=== PATIENT | female | born 1985 | race Caucasian/White ===

== ENCOUNTER 2022-11-20 09:26 | Outpatient (CLI) | payer OTHER, SELFPAY ==
[2022-11-20] VITALS (7 sets, daily range): BP systolic 107–122; BP diastolic 65–76; PULSE 86–100; RESP 16; TEMP 36.1–36.3; O2SAT 98–100; BMI 21.0
[2022-11-20] MEDS: 0.9% NaCl VAD Flush IV ×3 (10:34→14:34)
== END 2022-11-20 09:27 | disposition home or self-care (01) ==
LOC: MEDOUTP 09:29
PROVIDERS: Referring Provider Internal Medicine Hematology & Oncology; Visit Provider Internal Medicine Hematology & Oncology
DX: D61.818 Other pancytopenia (principal); C92.90 Myeloid leukemia, unspecified, not having achieved remission
CPT/HCPCS: 36430; 86850; 86900; 86901; 86920; J7040; P9040; A4216

== ENCOUNTER 2022-11-30 07:55 | Outpatient (CLI) | payer OTHER, SELFPAY ==
[2022-11-30] VITALS (8 sets, daily range): BP systolic 92–113; BP diastolic 61–72; PULSE 84–100; RESP 16; TEMP 35.8–37.1; O2SAT 98–100; BMI 20.5
[2022-11-30] MEDS: 0.9% NaCl VAD Flush IV ×2 (08:23→14:41)
== END 2022-11-30 07:56 | disposition home or self-care (01) ==
LOC: MEDOUTP 07:58
PROVIDERS: Referring Provider Internal Medicine Hematology & Oncology; Visit Provider Internal Medicine Hematology & Oncology
DX: C92.00 Acute myeloblastic leukemia, not having achieved remission (principal)
CPT/HCPCS: 36430; 86850; 86900; 86901; 86920; 86965; J7040; P9035; P9040; A4216

== ENCOUNTER → 2022-12-03 | Outpatient (CLI) | payer OTHER, SELFPAY | END | disposition home or self-care (01) | LOC: LABSPEC 17:23 | PROVIDERS: Visit Provider Internal Medicine Hematology & Oncology | DX: R69 Illness, unspecified (principal) | CPT/HCPCS: 86900; 86901 ==

== ENCOUNTER 2022-12-04 09:32 | Outpatient (CLI) | payer OTHER, SELFPAY ==
[2022-12-04] MEDS: 0.9% NaCl Peripheral Flush Adult/Peds IV ×2 (09:54→12:33)
[2022-12-04] MEDS: Acetaminophen 500 MG Tablet 1000 MG PO (09:56)
[2022-12-04] MEDS: DiphenhydrAMINE 50 MG/ML Syringe IV (09:56)
[2022-12-04 10:01] VITALS: BP 114/66; PULSE 98; RESP 16; TEMP 36.3; O2SAT 98; BMI 20.5
[2022-12-04 10:50] VITALS: BP 106/72; PULSE 108; RESP 14; TEMP 36.4; O2SAT 99
[2022-12-04 11:43] VITALS: BP 110/65; PULSE 80; RESP 16; TEMP 36.4
[2022-12-04 11:58] VITALS: BP 98/60; PULSE 89; RESP 16; TEMP 36.4
== END 2022-12-04 09:33 | disposition home or self-care (01) ==
LOC: MEDOUTP 09:32
PROVIDERS: Referring Provider Internal Medicine Hematology & Oncology; Visit Provider Internal Medicine Hematology & Oncology
DX: C92.00 Acute myeloblastic leukemia, not having achieved remission (principal)
CPT/HCPCS: 36430; 86900; 86901; 86965; J7040; P9035; A4216

== ENCOUNTER 2022-12-05 18:16 | Emergency (ER) | payer OTHER, SELFPAY ==
[2022-12-05 18:18] VITALS: BP 103/64; PULSE 130; RESP 14; TEMP 36.4; O2SAT 98; BMI 20.5
--- NOTE | 2022-12-05 18:45 | EKG12_ITS ---
Test Reason : WEAKNESS Blood Pressure : / mmHG Vent. Rate : 115 BPM Atrial Rate : 115 BPM P-R Int : 114 ms QRS Dur : 074 ms QT Int : 340 ms P-R-T Axes : 072 068 031 degrees QTc Int : 470 ms Sinus tachycardia Otherwise normal ECG Confirmed by MEE GODINEZ, LUX ([id number]), editor school photograph MATILDA BOSE ([id number]) on 12/10/2022 8:11:18 AM Referred By: Confirmed By:RAFAEL CABAN MD
--- NOTE | 2022-12-05 18:46 | EDS_ITS ---
HPI History of Present Illness Chief Complaint: Weakness Informant: patient and spouse/S.O. 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 Last chemotherapy infusion was 8 3. States today after her nap she just woke up just did not feel well felt fatigued. She denies nausea, vomiting or diarrhea. She denies any fever or chills. She denies any dysuria. She denies any shortness of breath. No chest pain or abdominal pain. Denies any diarrhea or melena. States she has had p.o. intake. She has had episodes of tachycardia before. No history of DVT or PE. Prior similar symptoms: Yes Recent Illness/Hospitalization: No PFSH PFSH Medical History AML (acute myeloid leukemia) Home Medications levofloxacin 500 mg tablet 500 mg PO DAILY 12/04/22 [History Last Taken Unknown] ondansetron HCl 8 mg tablet mg PO Q8H PRN nausea and vomiting 12/05/22 [History Last Taken Unknown] Allergy/AdvReac Type Severity Reaction Status Date / Time No Known Allergies Allergy Verified 12/04/22 09:50 Social History Smoking Status: Never smoker ROS ROS ED ROS Narrative Fatigue. Review of Systems ROS Unobtainable: Denies due to encephalopathy Constitutional Constitutional ED: Denies chills or fever(s) Eyes Eyes: Denies blurry vision ENT ENT ED: Denies ear pain Cardiovascular Cardiovascular: Reports racing heartbeat; Denies chest pain or palpitations Respiratory/Chest Respiratory/Chest: Denies cough or dyspnea Gastrointestinal Gastrointestinal: Denies abdominal pain, constipation, diarrhea, melena, nausea or vomiting Genitourinary Genitourinary ED: Denies dysuria or hematuria Musculoskeletal Musculoskeletal: Denies arthralgias Integumentary Denies abscess Neurologic Neurologic: Denies headache(s) Psychiatric Psychiatric: Denies anxiety Endocrine Endocrinology: Denies cold intolerance Allergic/Immunologic Allergic/Immunologic ED: Denies mouth swelling or tongue swelling EXAM Physical Exam Narrative Exam Narrative: Well-appearing 37-year-old female. Vital signs are stable and her tachycardia 130. She does not look septic or toxic. She does not look dehydrated. Initial blood pressure was 103/64. Pulse ox 90% on room air hypoxia. H EENT exam poisonings membranes. Posterior pharynx normal. Neck nontender no JVD. No lymphadenopathy. No meningismus. Lungs clear to auscultation bilaterally. Heart tachycardic rate about 125 no murmur. Abdomen soft nontender. Normal bowel sounds no peritoneal signs. Chest wall nontender. She has a tunneled catheter in her right chest wall Jaramillo catheter. It is nontender. There is no redness or swelling. Moving all 4 extremities. Nontender no edema. Neurologically she is awake and alert. Back nontender. Const Vital Signs: 12/05/22 18:18 12/05/22 18:36 12/05/22 19:13 Temperature 97.6 F L Temperature Source Temporal Pulse Rate 130 H 113 H Respiratory Rate 14 20 H Respiratory Effort Normal Non-Labored Respiratory Pattern Normal Blood Pressure 103/64 103/70 Blood Pressure Mean 77 81 Pulse Ox 98 99 Oxygen Delivery Method Room Air Room Air 12/05/22 20:45 Temperature Temperature Source Pulse Rate 106 H Respiratory Rate 18 Respiratory Effort Respiratory Pattern Blood Pressure 120/79 Blood Pressure Mean 92 Pulse Ox 98 Oxygen Delivery Method Room Air Positive well nourished and well developed; Negative for obese, cachectic or contractures General Appearance ED: well developed and NAD; Negative for cachectic, contractures, cyanotic, diaphoretic or pallor Nutritional Appearance: Negative for cachectic or obese HEENT Reports moist mucous membranes; Denies dry mucous membranes Negative for trauma or tenderness Mouth ED: No dry mucous membranes Mouth: No dry mucous membranes Eyes PERRL and EOMs intact bilaterally General Eye ED: Negative for pale conjunctiva or scleral icterus Neck no lymphadenopathy, supple and no JVD General: Negative for tenderness Lymph Lymphatic: Negative for other Chest Wall inspection of chest normal and palpation of chest normal Chest: Negative for other Resp normal respiratory effort and clear to auscultation bilaterally Effort and Inspection: Negative for retractions Auscultation: Negative for rales, rhonchi or wheezes Cardio regular rhythm, S1 normal heart sound, S2 normal heart sound and no murmurs; Negative for regular rate Rate: tachycardic Rhythm: Negative for abnormal rhythm GI normal to inspection, nondistended, normoactive bowel sounds, non-tender, non- distended and no masses Inspection: Negative for abdominal distention Auscultation: normoactive bowel sounds Palpation: soft; Negative for tender or guarding Back/Spine no CVA tenderness General Back: Negative for CVA tenderness Cervical Spine: Negative for cervical spine tenderness Thoracic Spine / Upper Back: Negative for thoracic spinal tenderness Lumbar Spine / Lower Back: Negative for lumbar spinal tenderness Extremity normal to inspection General Extremety ED: Negative for edema or tenderness General Extremity: Negative for edema Neuro oriented x3, CN's II-XII intact bilaterally and no sensory deficits noted Sensorium / Orientation: alert; Negative for orientation impaired, lethargic or stuporous Motor Exam: strength 5/5 throughout Psych mental status grossly normal Appearance: Negative for other Attitude: No agitated Mood & Affect: Negative for depressed, anxious or tearful Skin no rashes or lesions noted, no wounds and skin turgor normal General Skin Exam: elasticity normal; Negative for jaundice or pallor Lesions: No lesion noted Rashes: No rashes noted Trauma: Negative for abrasion Wounds: Negative for wounds noted MDM MDM MDM Narrative Medical decision making narrative: 37-year-old female with tachycardia and just feeling fatigued. Currently being treated for AML. She does not look infected. She has no cough, fever, abdominal pain or dysuria. Screening labs to be obtained. She will be treated with a liter normal saline. She may be dehydrated. Repeat exam patient doing well at 9:20 PM. Clinically she feels better after the IV fluids. Her vital signs are stable. Her heart rate is down to around 100. She and her feel current with her being discharged home. I did speak to her oncologist Dr. Gilles Caba knows this patient very well. Her labs are actually the same or better today than they have been. She gets frequent transfusions. Both he and I and the patient and are comfortable with her being discharged home. They are going to see him in the office again t omorrow to have further evaluation and testing. History & Record Review Discussion w/independent historian: Patient and Family Additional record(s) reviewed:: Prior inpatient record, Prior outpatient record, Prior ED visit and Prior labs Lab Data Attestation: I reviewed the patient's lab results. Lab results narrative: CBC shows a white count of 0.3. H&H is 7.3 and 21.5. Platelet count 21,000. Electrolytes show gap of 6. Normal BUN and creatinine of 18 and 0.6. Glucose 105. Labs: Laboratory Results - last 24 hr 12/05/22 19:00 WBC 0.3 L* RBC 2.46 L Hgb 7.3 L Hct 21.5 L MCV 87.4 MCH 29.7 MCHC 34.0 RDW Std Deviation 41.6 RDW Coeff of Susan 13.2 Plt Count 21 L* MPV 8.1 Immature Gran % (Auto) 0.000 Neut % (Auto) 25.9 L Lymph % (Auto) 70.4 H [place] % (Auto) 3.7 Eos % (Auto) 0.0 Baso % (Auto) 0.0 Absolute Neuts (auto) 0.1 L Absolute Lymphs (auto) 0.19 L Nucleated RBC % 0 Differential Comment SCANNED Diff Path Review May foll Sodium 137 Potassium 3.6 Chloride 105 Carbon Dioxide 26.0 Anion Gap 6 BUN 18 Creatinine 0.67 Estim Creat Clear Calc 93.25 Est GFR (MDRD) Af Amer 125 Est GFR (MDRD) Non-Af 104 BUN/Creatinine Ratio 26.9 H Glucose 105 Calcium 9.2 Rhythm Strip Rhythm Strip: Sinus Tach Rate: 115 Ectopy: None EKG Initial EKG: Attestation: I personally reviewed and interpreted this EKG as follows: Interpretation: Sinus Rhythm and Sinus Tachycardia Comments: Sinus tachycardia rate of 115 no acute signs of [place] or ischemia. No S1Q3T3. Discharge Plan Triage Chief Complaint: Weakness ED Provider: Darian Valenzuela Dx/Rx/DC Orders Clinical Impression: Acute dehydration, Family history of AML (acute myeloid leukemia), Acquired pancytopenia, Chemotherapy induced neutropenia Instructions: Dehydration Prescriptions: No Action levofloxacin 500 mg tablet 500 mg PO DAILY ondansetron HCl 8 mg tablet PO Q8H PRN (Reason: nausea and vomiting) Patient Comments: TAKE ONE TABLET BY MOUTH EVERY 8 HOURS NEEDED FOR NAUSEA AND VOMITING Primary Care Provider: Mook Ga Referrals: Gilles Caba DO [Med Staff - Active Staff] - 1 Day Care Physician,No Primary [Non-Staff] - Activity Restrictions/Additional Instructions: Plenty fluids and rest. Follow-up with your oncologist in his office tomorrow Dr. Gilles Caba. He and I discussed your care and labs tonight. Disposition Disposition: Home, Self Care
[2022-12-05] MEDS: 0.9% Normal Saline 1,000 ML 1000 ML IV (19:01)
[2022-12-05 19:08] LABS: Absolute Lymphocyte Count 0.19 X10^3/uL (0.83-4.51); Absolute Neutrophil Count 0.1 X10^3/uL (2.0-7.7); Hematocrit 21.5 % (37-47); Hemoglobin 7.3 g/dL (12.0-15.0); Lymphocyte # 0.19 X10^3/ul (0.83-4.51); Lymphocyte % 70.4 % (19-41); Mean Corpuscular Hgb 29.7 pg (27.0-32.0); Mean Corpuscular Volume 87.4 fL (81-99); Mean Platelet Vol. 8.1 fl (6.2-12.0); Monocyte# 0.01 X10^3/uL; Monocyte% 3.7 % (0-10); NRBC Flagged by Analyzer 0 % (0-5); Neutrophil # 0.07 X10^3/uL (2.7-7.7); Neutrophil % 25.9 % (47-70); POSITIVE COUNT YES; POSITIVE DIFFERENTIAL YES; POSITIVE MORPHOLOGY YES; RBC Distribution Width CV 13.2 % (11.6-14.6); RBC Distribution Width SD 41.6 fl (35.1-43.9); Red Blood Count 2.46 M/mm3 (4.2-5.4)
[2022-12-05 19:13] VITALS: BP 103/70; PULSE 113; RESP 20; O2SAT 99
[2022-12-05 19:20] LABS: Anion Gap 6 (5-15); BUN 18 mg/dL (7-18); BUN/Creat Ratio 26.9 RATIO (10-20); Calcium,Total 9.2 mg/dL (8.5-10.1); Chloride 105 mmol/L (98-107); Creatinine, Serum 0.67 mg/dL (0.55-1.02); EST Glomerular Filtration Rate 104 mL/min (>60); Est Glom Filt Rate - Afr Amer 125 mL/min (>60); Estimated Creatinine Clearance 93.25 ml/min; Glucose 105 mg/dL (74-106); Potassium 3.6 mmol/L (3.5-5.1); Sodium Level 137 mmol/L (136-145)
[2022-12-05 19:52] LABS: Differential Comment SCANNED; Differential Indicated SCAN CRITERIA MET; Platelet Count 21 K/mm3 (150-450); White Blood Count 0.3 K/mm3 (4.4-11.0)
[2022-12-05 20:45] VITALS: BP 120/79; PULSE 106; RESP 18; O2SAT 98
[2022-12-05 21:26] VITALS: BP 106/73; PULSE 100; RESP 17; O2SAT 95
[2022-12-06 12:54] LABS: Pathologist Review Reviewed
== END 2022-12-05 21:40 | disposition home or self-care (01) ==
PROVIDERS: Emergency Provider Emergency Medicine; PCP Family Medicine; Visit Provider Emergency Medicine
DX: E86.0 Dehydration (principal); C92.00 Acute myeloblastic leukemia, not having achieved remission; D61.818 Other pancytopenia; D70.1 Agranulocytosis secondary to cancer chemotherapy
CPT/HCPCS: 80048; 85025; 93005; 96360; 96361; 99282; J7030; A4216

== ENCOUNTER 2022-12-07 07:59 | Outpatient (CLI) | payer OTHER, SELFPAY ==
[2022-12-07] VITALS (8 sets, daily range): BP systolic 104–116; BP diastolic 61–72; PULSE 89–97; RESP 16; TEMP 36.2–36.7; O2SAT 100; BMI 20.5
[2022-12-07] MEDS: 0.9% NaCl VAD Flush IV ×2 (08:15→12:29)
== END 2022-12-07 08:00 | disposition home or self-care (01) ==
LOC: MEDOUTP 07:59
PROVIDERS: PCP Family Medicine; Referring Provider Internal Medicine Hematology & Oncology; Visit Provider Internal Medicine Hematology & Oncology
DX: C92.01 Acute myeloblastic leukemia, in remission (principal); D61.818 Other pancytopenia
CPT/HCPCS: 96374; 96375; 36430; 86850; 86900; 86901; 86920; 86922; J7040; P9016; A4216

== ENCOUNTER 2022-12-11 08:04 | Outpatient (CLI) | payer OTHER, SELFPAY ==
[2022-12-11 10:40] VITALS: BP 113/71; PULSE 118; RESP 16; TEMP 36.4; O2SAT 100; BMI 20.5
[2022-12-11] MEDS: DiphenhydrAMINE 50 MG/ML Syringe IV (10:52)
[2022-12-11] MEDS: 0.9% NaCl Peripheral Flush Adult/Peds IV ×2 (10:52→12:47)
[2022-12-11] MEDS: Acetaminophen 500 MG Tablet 1000 MG PO (10:52)
[2022-12-11] MEDS: Hydrocortisone Sod Succinate 100 MG/2 ML Vial IV (10:52)
[2022-12-11 11:32] VITALS: BP 93/60; PULSE 95; RESP 16; TEMP 37.1; O2SAT 100
[2022-12-11 11:48] VITALS: BP 98/62; PULSE 88; RESP 16; TEMP 36.8
[2022-12-11 12:23] VITALS: BP 104/67; PULSE 97; RESP 16; TEMP 36.3
[2022-12-11 12:37] VITALS: BP 99/62; PULSE 91; RESP 16; TEMP 36.6; O2SAT 100
[2022-12-11 12:58] LABS: Absolute Lymphocyte Count 0.11 X10^3/uL (0.83-4.51); Hematocrit 21.7 % (37-47); Hemoglobin 7.5 g/dL (12.0-15.0); Lymphocyte # 0.11 X10^3/ul (0.83-4.51); Lymphocyte % 84.6 % (19-41); Mean Corp Hgb Conc 34.6 g/dL (32-36); Mean Corpuscular Hgb 29.8 pg (27.0-32.0); Mean Corpuscular Volume 86.1 fL (81-99); Mean Platelet Vol. 9.5 fl (6.2-12.0); NRBC Flagged by Analyzer 0 % (0-5); Neutrophil # 0.02 X10^3/uL (2.7-7.7); Neutrophil % 15.4 % (47-70); POSITIVE COUNT YES; POSITIVE DIFFERENTIAL YES; POSITIVE MORPHOLOGY YES; RBC Distribution Width CV 12.4 % (11.6-14.6); Red Blood Count 2.52 M/mm3 (4.2-5.4)
[2022-12-11 13:14] LABS: Differential Indicated SCAN CRITERIA MET; Platelet Count 30 K/mm3 (150-450); White Blood Count 0.1 K/mm3 (4.4-11.0)
[2022-12-11 13:33] LABS: Platelet Estimate MKD DEC (ADEQ)
[2022-12-12 12:31] LABS: Pathologist Review Reviewed
== END 2022-12-11 08:05 | disposition home or self-care (01) ==
LOC: MEDOUTP 08:04
PROVIDERS: PCP Family Medicine; Visit Provider Internal Medicine Hematology & Oncology
DX: C92.00 Acute myeloblastic leukemia, not having achieved remission (principal)
CPT/HCPCS: 36430; 36592; 85025; 86900; 86901; 86965; J7040; P9035; A4216

== ENCOUNTER 2022-12-14 08:29 | Outpatient (CLI) | payer OTHER, SELFPAY ==
[2022-12-14 08:41] VITALS: BP 105/67; PULSE 114; RESP 16; TEMP 36.4; O2SAT 97; BMI 20.5
[2022-12-14] MEDS: 0.9% NaCl VAD Flush IV ×3 (08:47→13:31)
[2022-12-14] MEDS: DiphenhydrAMINE 50 MG/ML Syringe IV (08:52)
[2022-12-14] MEDS: Acetaminophen 500 MG Tablet 1000 MG PO (08:52)
[2022-12-14] MEDS: Hydrocortisone Sod Succinate 100 MG/2 ML Vial IV (08:54)
[2022-12-14 10:01] VITALS: BP 92/54; PULSE 100; RESP 16; TEMP 36.2; O2SAT 100
[2022-12-14 10:15] VITALS: BP 89/53; PULSE 92; RESP 16; TEMP 36.4; O2SAT 98
[2022-12-14 11:07] VITALS: BP 95/53; PULSE 81; RESP 16; TEMP 35.9; O2SAT 100
[2022-12-14 12:10] VITALS: BP 110/69; PULSE 85; RESP 16; TEMP 35.6; O2SAT 100
[2022-12-14 12:30] VITALS: BP 102/62; PULSE 97; RESP 16; TEMP 36.2
[2022-12-14 13:47] LABS: Absolute Lymphocyte Count 0.08 X10^3/uL (0.83-4.51); Hematocrit 22.6 % (37-47); Hemoglobin 7.6 g/dL (12.0-15.0); Lymphocyte # 0.08 X10^3/ul (0.83-4.51); Lymphocyte % 88.9 % (19-41); Mean Corp Hgb Conc 33.6 g/dL (32-36); Mean Corpuscular Hgb 29.2 pg (27.0-32.0); Mean Corpuscular Volume 86.9 fL (81-99); Mean Platelet Vol. 10.1 fl (6.2-12.0); NRBC Flagged by Analyzer 0 % (0-5); Neutrophil # 0.01 X10^3/uL (2.7-7.7); Neutrophil % 11.1 % (47-70); POSITIVE COUNT YES; POSITIVE DIFFERENTIAL YES; POSITIVE MORPHOLOGY YES; Platelet Count 12 K/mm3 (150-450); RBC Distribution Width CV 12.4 % (11.6-14.6); RBC Distribution Width SD 39.7 fl (35.1-43.9)
[2022-12-14 13:58] LABS: Differential Indicated SCAN CRITERIA MET; White Blood Count 0.1 K/mm3 (4.4-11.0)
[2022-12-14 14:21] LABS: Differential Comment SCANNED; Platelet Estimate MKD DEC (ADEQ)
[2022-12-17 13:16] LABS: Pathologist Review Reviewed
== END 2022-12-14 08:30 | disposition home or self-care (01) ==
LOC: MEDOUTP 08:29
PROVIDERS: PCP Family Medicine; Referring Provider Internal Medicine Hematology & Oncology; Visit Provider Internal Medicine Hematology & Oncology
DX: C92.00 Acute myeloblastic leukemia, not having achieved remission (principal); D61.818 Other pancytopenia
CPT/HCPCS: 96374; 96375; 36430; 36592; 85025; 86644; 86850; 86900; 86901; 86920; 86922; 86965; J7040; P9035; P9040; A4216

== ENCOUNTER 2022-12-18 08:53 | Outpatient (CLI) | payer OTHER, SELFPAY ==
[2022-12-18] VITALS (8 sets, daily range): BP systolic 98–110; BP diastolic 62–72; PULSE 88–123; RESP 16; TEMP 36–37.4; O2SAT 99–100
[2022-12-18] MEDS: 0.9% NaCl VAD Flush IV ×2 (09:01→14:51)
[2022-12-18] MEDS: Acetaminophen 500 MG Tablet 1000 MG PO (11:08)
[2022-12-18] MEDS: Hydrocortisone Sod Succinate 100 MG/2 ML Vial IV (11:19)
[2022-12-18] MEDS: DiphenhydrAMINE 50 MG/ML Syringe IV (11:24)
[2022-12-18 15:03] LABS: Hemoglobin 7.6 g/dL (12.0-15.0); Mean Corp Hgb Conc 34.5 g/dL (32-36); Mean Corpuscular Hgb 28.9 pg (27.0-32.0); Mean Corpuscular Volume 83.7 fL (81-99); Mean Platelet Vol. 10.4 fl (6.2-12.0); POSITIVE COUNT YES; POSITIVE DIFFERENTIAL YES; POSITIVE MORPHOLOGY YES; RBC Distribution Width CV 12.3 % (11.6-14.6); RBC Distribution Width SD 37.5 fl (35.1-43.9); Red Blood Count 2.63 M/mm3 (4.2-5.4)
[2022-12-18 15:19] LABS: Platelet Count 15 K/mm3 (150-450); Scan Indicated on CBC? Y/N YES- FLAGS NOTED; White Blood Count 0.1 K/mm3 (4.4-11.0)
[2022-12-20 08:53] LABS: Pathologist Review Reviewed
== END 2022-12-18 08:54 | disposition home or self-care (01) ==
LOC: MEDOUTP 08:53
PROVIDERS: PCP Family Medicine; Referring Provider Internal Medicine Hematology & Oncology; Visit Provider Internal Medicine Hematology & Oncology
DX: C92.00 Acute myeloblastic leukemia, not having achieved remission (principal)
CPT/HCPCS: 96374; 96375; 36430; 36592; 85027; 86850; 86900; 86901; 86920; 86922; 86965; J7040; P9035; P9040; A4216

== ENCOUNTER 2022-12-21 10:10 | Outpatient (CLI) | payer OTHER, SELFPAY ==
[2022-12-21] MEDS: 0.9% NaCl VAD Flush IV ×2 (11:00→14:47)
[2022-12-21] MEDS: Acetaminophen 500 MG Tablet 1000 MG PO (11:04)
[2022-12-21] MEDS: DiphenhydrAMINE 50 MG/ML Syringe IV (11:05)
[2022-12-21] MEDS: Hydrocortisone Sod Succinate 100 MG/2 ML Vial IV (11:10)
[2022-12-21 11:13] VITALS: BP 115/77; PULSE 107; RESP 16; TEMP 36.7; O2SAT 100; BMI 20.3
[2022-12-21 12:13] VITALS: BP 101/58; PULSE 92; RESP 16; TEMP 36.7
[2022-12-21 12:36] VITALS: BP 108/65; PULSE 78; RESP 16; TEMP 36.2
[2022-12-21 12:54] VITALS: BP 105/54; PULSE 92; RESP 16; TEMP 35.8; O2SAT 100
[2022-12-21 13:09] VITALS: BP 112/66; PULSE 95; RESP 16; TEMP 36.3
== END 2022-12-21 10:11 | disposition home or self-care (01) ==
PROVIDERS: PCP Family Medicine; Visit Provider Internal Medicine Hematology & Oncology
DX: D61.818 Other pancytopenia (principal); C92.90 Myeloid leukemia, unspecified, not having achieved remission
CPT/HCPCS: 96374; 96375; 36430; 36592; 86900; 86901; 86965; J7040; P9035; A4216

== ENCOUNTER 2022-12-25 08:01 | Outpatient (CLI) | payer OTHER, SELFPAY ==
[2022-12-25] VITALS (9 sets, daily range): BP systolic 98–124; BP diastolic 62–76; PULSE 80–123; RESP 16; TEMP 36.5–37.2; O2SAT 96–100
[2022-12-25] MEDS: 0.9% NaCl VAD Flush IV ×2 (08:14→09:49)
[2022-12-25] MEDS: Acetaminophen 500 MG Tablet 1000 MG PO (14:23)
[2022-12-25] MEDS: DiphenhydrAMINE 50 MG/ML Syringe IV (14:24)
[2022-12-25] MEDS: Hydrocortisone Sod Succinate 100 MG/2 ML Vial IV (14:28)
== END 2022-12-25 08:02 | disposition home or self-care (01) ==
LOC: MEDOUTP 08:01
PROVIDERS: PCP Family Medicine; Referring Provider Internal Medicine Hematology & Oncology; Visit Provider Internal Medicine Hematology & Oncology
DX: C92.00 Acute myeloblastic leukemia, not having achieved remission (principal)
CPT/HCPCS: 96374; 96375; 36430; 86850; 86900; 86901; 86920; 86921; 86922; 86965; J7040; P9035; P9040; A4216

== ENCOUNTER 2022-12-28 08:02 | Outpatient (CLI) | payer OTHER, SELFPAY ==
[2022-12-28 08:16] VITALS: BP 121/74; PULSE 100; RESP 16; TEMP 36.7; O2SAT 99
[2022-12-28] MEDS: 0.9% NaCl VAD Flush IV ×2 (08:18→13:11)
[2022-12-28 08:48] VITALS: BP 110/76; PULSE 98; RESP 16; TEMP 36.8
[2022-12-28 09:48] VITALS: BP 107/70; PULSE 91; RESP 16; TEMP 36.8; O2SAT 99
[2022-12-28 10:34] VITALS: BP 106/71; PULSE 87; RESP 16; TEMP 36.6; O2SAT 99
[2022-12-28] MEDS: Acetaminophen 500 MG Tablet 1000 MG PO (10:43)
[2022-12-28] MEDS: DiphenhydrAMINE 50 MG/ML Syringe IV (10:44)
[2022-12-28] MEDS: Hydrocortisone Sod Succinate 100 MG/2 ML Vial IV (10:52)
[2022-12-28 11:28] VITALS: BP 122/80; PULSE 78; RESP 16; TEMP 36.6
[2022-12-28 11:53] VITALS: BP 133/89; PULSE 82; RESP 16; TEMP 36.5; O2SAT 100
[2022-12-28 13:31] LABS: Hematocrit 28.1 % (37-47); Hemoglobin 9.5 g/dL (12.0-15.0); Mean Corp Hgb Conc 33.8 g/dL (32-36); Mean Corpuscular Hgb 28.8 pg (27.0-32.0); Mean Corpuscular Volume 85.2 fL (81-99); Mean Platelet Vol. 10.4 fl (6.2-12.0); POSITIVE COUNT YES; POSITIVE DIFFERENTIAL YES; POSITIVE MORPHOLOGY YES; Platelet Count 36 K/mm3 (150-450); RBC Distribution Width CV 12.9 % (11.6-14.6); RBC Distribution Width SD 39.8 fl (35.1-43.9); White Blood Count 0.2 K/mm3 (4.4-11.0)
[2022-12-28 13:33] LABS: Scan Indicated on CBC? Y/N YES- FLAGS NOTED
[2023-01-02 12:51] LABS: Pathologist Review Reviewed
== END 2022-12-28 08:03 | disposition home or self-care (01) ==
LOC: MEDOUTP 08:03
PROVIDERS: PCP Family Medicine; Referring Provider Internal Medicine Hematology & Oncology; Visit Provider Internal Medicine Hematology & Oncology
DX: C92.00 Acute myeloblastic leukemia, not having achieved remission (principal)
CPT/HCPCS: 36430; 36592; 85027; 86850; 86900; 86901; 86920; 86922; 86965; J7040; P9035; P9040; A4216

== ENCOUNTER 2023-01-04 08:54 | Outpatient (CLI) | payer OTHER, SELFPAY ==
[2023-01-04 09:10] VITALS: BP 98/68; PULSE 109; RESP 16; TEMP 36.5; O2SAT 100; BMI 19.3
[2023-01-04] MEDS: 0.9% Normal Saline (500mL Bag) 500 ML 15 ML IV (09:20)
[2023-01-04] MEDS: DiphenhydrAMINE 50 MG/ML Syringe IV (09:21)
[2023-01-04] MEDS: Acetaminophen 500 MG Tablet 1000 MG PO (09:21)
[2023-01-04] MEDS: 0.9% NaCl VAD Flush IV ×2 (09:21→10:37)
[2023-01-04] MEDS: Hydrocortisone Sod Succinate 100 MG/2 ML Vial IV (09:24)
[2023-01-04 10:20] VITALS: BP 112/83; PULSE 112; RESP 16; TEMP 37.4; O2SAT 100
[2023-01-04 10:37] VITALS: BP 96/61; PULSE 77; RESP 16; TEMP 36.4; O2SAT 100
== END 2023-01-04 08:55 | disposition home or self-care (01) ==
LOC: MEDOUTP 08:54
PROVIDERS: PCP Family Medicine; Referring Provider Internal Medicine Hematology & Oncology; Visit Provider Internal Medicine Hematology & Oncology
DX: C92.00 Acute myeloblastic leukemia, not having achieved remission (principal)
CPT/HCPCS: 96374; 96375; 36430; 86900; 86901; 86965; J7040; P9035; A4216

== ENCOUNTER 2023-01-11 09:53 | Outpatient (CLI) | payer OTHER, SELFPAY ==
[2023-01-11 10:34] VITALS: BP 122/84; PULSE 100; RESP 16; TEMP 36.2; O2SAT 100; BMI 19.3
[2023-01-11] MEDS: 0.9% NaCl VAD Flush IV ×2 (10:41→12:01)
[2023-01-11] MEDS: 0.9% Normal Saline (500mL Bag) 500 ML 15 ML IV (10:41)
[2023-01-11] MEDS: Acetaminophen 500 MG Tablet 1000 MG PO (10:42)
[2023-01-11] MEDS: DiphenhydrAMINE 50 MG/ML Syringe IV (10:42)
[2023-01-11] MEDS: Hydrocortisone Sod Succinate 100 MG/2 ML Vial IV (10:49)
[2023-01-11 11:42] VITALS: BP 107/68; PULSE 95; RESP 16; TEMP 36.8; O2SAT 100
[2023-01-11 12:00] VITALS: BP 107/73; PULSE 95; RESP 16; TEMP 36.6; O2SAT 100
== END 2023-01-11 09:54 | disposition home or self-care (01) ==
LOC: MEDOUTP 09:54
PROVIDERS: PCP Family Medicine; Referring Provider Internal Medicine Hematology & Oncology; Visit Provider Internal Medicine Hematology & Oncology
DX: C92.00 Acute myeloblastic leukemia, not having achieved remission (principal)
CPT/HCPCS: 96374; 96375; 36430; 86900; 86901; 86965; J7040; P9035; A4216

== ENCOUNTER 2023-01-15 08:59 | Outpatient (CLI) | payer OTHER, SELFPAY ==
[2023-01-15 09:11] VITALS: BP 116/77; PULSE 95; RESP 16; TEMP 36.3; O2SAT 100; BMI 19.3
[2023-01-15] MEDS: 0.9% NaCl VAD Flush IV ×2 (09:15→12:43)
[2023-01-15] MEDS: 0.9% Normal Saline (500mL Bag) 500 ML 15 ML IV (09:15)
[2023-01-15 09:43] VITALS: BP 107/72; PULSE 104; RESP 16; TEMP 36.4; O2SAT 100
[2023-01-15 10:42] VITALS: BP 106/66; PULSE 86; RESP 16; TEMP 36.6; O2SAT 99
[2023-01-15 11:13] VITALS: BP 114/68; PULSE 91; RESP 16; TEMP 36.4; O2SAT 99
[2023-01-15] MEDS: Acetaminophen 500 MG Tablet 1000 MG PO (11:15)
[2023-01-15] MEDS: DiphenhydrAMINE 50 MG/ML Syringe IV (11:16)
[2023-01-15] MEDS: Hydrocortisone Sod Succinate 100 MG/2 ML Vial IV (11:21)
[2023-01-15 12:15] VITALS: BP 117/68; PULSE 101; RESP 16; TEMP 36.9; O2SAT 100
== END 2023-01-15 09:00 | disposition home or self-care (01) ==
LOC: MEDOUTP 08:59
PROVIDERS: PCP Family Medicine; Referring Provider Internal Medicine Hematology & Oncology; Visit Provider Internal Medicine Hematology & Oncology
DX: C92.90 Myeloid leukemia, unspecified, not having achieved remission (principal)
CPT/HCPCS: 96374; 96375; 36430; 86850; 86900; 86901; 86920; 86921; 86922; 86965; J7040; P9035; P9040; A4216

== ENCOUNTER 2023-02-19 08:36 | Outpatient (CLI) | payer OTHER, SELFPAY ==
[2023-02-19] MEDS: 0.9% NaCl VAD Flush IV ×2 (08:52→13:22)
[2023-02-19] MEDS: 0.9% Normal Saline (500mL Bag) 500 ML 15 ML IV (08:52)
[2023-02-19 08:58] VITALS: BP 115/78; PULSE 104; RESP 16; TEMP 36.3; O2SAT 100; BMI 19.5
[2023-02-19 09:22] VITALS: BP 111/71; PULSE 95; RESP 16; TEMP 36.4; O2SAT 100
[2023-02-19 10:21] VITALS: BP 114/77; PULSE 94; RESP 16; TEMP 36.6; O2SAT 100
[2023-02-19 11:35] VITALS: BP 120/78; PULSE 87; RESP 16; TEMP 36.6; O2SAT 100
[2023-02-19 12:35] VITALS: BP 127/80; PULSE 94; RESP 16; TEMP 36.6; O2SAT 100
[2023-02-19 13:09] VITALS: BP 121/77; PULSE 95; RESP 16; TEMP 36.7; O2SAT 100
== END 2023-02-19 08:37 | disposition home or self-care (01) ==
LOC: MEDOUTP 08:36
PROVIDERS: PCP Family Medicine; Referring Provider Internal Medicine Hematology & Oncology; Visit Provider Internal Medicine Hematology & Oncology
DX: C92.90 Myeloid leukemia, unspecified, not having achieved remission (principal)
CPT/HCPCS: 96374; 96375; 36430; 86850; 86900; 86901; 86920; 86922; J7040; P9016; A4216

== ENCOUNTER 2023-02-26 09:57 | Outpatient (CLI) | payer OTHER, SELFPAY ==
[2023-02-26 10:14] VITALS: BP 106/73; PULSE 89; RESP 16; TEMP 36.4; O2SAT 100; BMI 19.5
[2023-02-26] MEDS: 0.9% Normal Saline (500mL Bag) 500 ML 15 ML IV (10:16)
[2023-02-26] MEDS: 0.9% NaCl VAD Flush IV ×2 (10:16→11:22)
[2023-02-26] MEDS: Hydrocortisone Sod Succinate 100 MG/2 ML Vial IV (10:20)
[2023-02-26] MEDS: DiphenhydrAMINE 50 MG/ML Syringe IV (10:20)
[2023-02-26] MEDS: Acetaminophen 500 MG Tablet 1000 MG PO (10:20)
[2023-02-26 11:01] VITALS: BP 102/60; PULSE 82; RESP 16; TEMP 36.8
[2023-02-26 11:19] VITALS: BP 98/61; PULSE 85; RESP 16; TEMP 36.6; O2SAT 100
== END 2023-02-26 09:58 | disposition home or self-care (01) ==
LOC: MEDOUTP 09:57
PROVIDERS: PCP Family Medicine; Referring Provider Internal Medicine Hematology & Oncology; Visit Provider Internal Medicine Hematology & Oncology
DX: C92.90 Myeloid leukemia, unspecified, not having achieved remission (principal)
CPT/HCPCS: 96374; 96375; 36430; 86900; 86901; 86965; J7040; P9035; A4216

== ENCOUNTER 2023-03-01 09:36 | Outpatient (CLI) | payer OTHER, SELFPAY ==
[2023-03-01 09:48] VITALS: BP 104/70; PULSE 90; RESP 16; TEMP 36.1; O2SAT 100; BMI 19.5
[2023-03-01] MEDS: Acetaminophen 500 MG Tablet 1000 MG PO (10:01)
[2023-03-01] MEDS: 0.9% NaCl VAD Flush IV (10:02)
[2023-03-01] MEDS: Hydrocortisone Sod Succinate 100 MG/2 ML Vial IV (10:02)
[2023-03-01] MEDS: 0.9% Normal Saline (500mL Bag) 500 ML 15 ML IV (10:03)
[2023-03-01] MEDS: DiphenhydrAMINE 50 MG/ML Syringe IV (10:09)
[2023-03-01 11:10] VITALS: BP 103/66; PULSE 98; RESP 16; TEMP 36.4; O2SAT 100
[2023-03-01 11:25] VITALS: BP 100/56; PULSE 92; RESP 16; TEMP 36.3; O2SAT 100
== END 2023-03-01 09:37 | disposition home or self-care (01) ==
LOC: MEDOUTP 09:36
PROVIDERS: PCP Family Medicine; Referring Provider Internal Medicine Hematology & Oncology; Visit Provider Internal Medicine Hematology & Oncology
DX: C92.00 Acute myeloblastic leukemia, not having achieved remission (principal)
CPT/HCPCS: 96374; 96375; 36430; 86900; 86901; 86965; J7040; P9035; A4216

== ENCOUNTER 2023-03-05 08:32 | Outpatient (CLI) | payer OTHER, SELFPAY ==
[2023-03-05 08:56] VITALS: BP 106/68; PULSE 111; RESP 16; TEMP 36; O2SAT 100; BMI 19.5
[2023-03-05 09:21] VITALS: BP 106/73; PULSE 104; RESP 16; TEMP 35.9; O2SAT 100
[2023-03-05 10:17] VITALS: BP 104/67; PULSE 97; RESP 16; TEMP 36.2
[2023-03-05 11:05] VITALS: BP 108/76; PULSE 100; RESP 16; TEMP 36.5; O2SAT 100
[2023-03-05] MEDS: Acetaminophen 500 MG Tablet 1000 MG PO (11:09)
[2023-03-05] MEDS: Hydrocortisone Sod Succinate 100 MG/2 ML Vial IV (11:10)
[2023-03-05] MEDS: DiphenhydrAMINE 50 MG/ML Syringe IV (11:11)
[2023-03-05 11:48] VITALS: BP 109/68; PULSE 106; RESP 16; TEMP 36.2; O2SAT 100
[2023-03-05 12:06] VITALS: BP 104/68; PULSE 108; RESP 16; TEMP 36.3; O2SAT 100
[2023-03-05] MEDS: 0.9% NaCl VAD Flush IV ×2 (12:09→12:11)
== END 2023-03-05 08:33 | disposition home or self-care (01) ==
LOC: MEDOUTP 08:32
PROVIDERS: PCP Family Medicine; Referring Provider Internal Medicine Hematology & Oncology; Visit Provider Internal Medicine Hematology & Oncology
DX: C92.00 Acute myeloblastic leukemia, not having achieved remission (principal)
CPT/HCPCS: 96374; 96375; 36430; 86850; 86900; 86901; 86920; 86922; 86965; J7040; P9016; P9035; A4216

== ENCOUNTER 2023-03-08 07:58 | Outpatient (CLI) | payer OTHER, SELFPAY ==
[2023-03-08 08:05] VITALS: BP 120/71; PULSE 110; RESP 16; TEMP 36.6; O2SAT 100
[2023-03-08] MEDS: 0.9% NaCl VAD Flush IV ×2 (08:08→11:35)
[2023-03-08] MEDS: 0.9% Normal Saline (500mL Bag) 500 ML 15 ML IV (08:08)
[2023-03-08 08:52] VITALS: BP 112/72; PULSE 115; RESP 16; TEMP 36.6; O2SAT 100
[2023-03-08 09:59] VITALS: BP 114/73; PULSE 112; RESP 16; TEMP 36.8; O2SAT 100
[2023-03-08] MEDS: Acetaminophen 500 MG Tablet 1000 MG PO (10:25)
[2023-03-08] MEDS: Hydrocortisone Sod Succinate 100 MG/2 ML Vial IV (10:26)
[2023-03-08] MEDS: DiphenhydrAMINE 50 MG/ML Syringe 25 MG IV (10:28)
[2023-03-08 10:32] VITALS: RESP 16
[2023-03-08 11:23] VITALS: BP 106/64; PULSE 109; RESP 16; TEMP 36.8; O2SAT 100
[2023-03-08 11:34] VITALS: BP 106/68; PULSE 99; RESP 16; TEMP 37.1; O2SAT 100
== END 2023-03-08 07:59 | disposition home or self-care (01) ==
PROVIDERS: PCP Family Medicine; Referring Provider Internal Medicine Hematology & Oncology; Visit Provider Internal Medicine Hematology & Oncology
DX: C92.00 Acute myeloblastic leukemia, not having achieved remission (principal); D61.818 Other pancytopenia
CPT/HCPCS: 96374; 96375; 36430; 86644; 86850; 86900; 86901; 86920; 86922; 86965; J7040; P9016; P9035; A4216

== ENCOUNTER 2023-03-12 09:05 | Outpatient (CLI) | payer OTHER, SELFPAY ==
[2023-03-12 09:21] VITALS: BP 120/70; PULSE 144; RESP 16; TEMP 37.2; O2SAT 100
[2023-03-12 09:48] VITALS: BP 119/63; PULSE 138; RESP 16; TEMP 37.5
[2023-03-12 11:27] VITALS: BP 122/71; PULSE 143; RESP 116; TEMP 38.6; O2SAT 100
[2023-03-12] MEDS: Acetaminophen 500 MG Tablet 1000 MG PO (11:27)
[2023-03-12] MEDS: Hydrocortisone Sod Succinate 100 MG/2 ML Vial IV (11:48)
[2023-03-12] MEDS: DiphenhydrAMINE 50 MG/ML Syringe IV (11:51)
[2023-03-12 12:34] VITALS: BP 110/59; PULSE 139; RESP 16; TEMP 37.8; O2SAT 100
[2023-03-12 12:49] VITALS: BP 117/50; PULSE 132; RESP 16; TEMP 37.2; O2SAT 100
[2023-03-12 13:16] VITALS: BP 109/60; PULSE 125; RESP 16; TEMP 37.4; O2SAT 98
[2023-03-12] MEDS: 0.9% NaCl VAD Flush IV (13:20)
== END 2023-03-12 09:06 | disposition home or self-care (01) ==
LOC: MEDOUTP 09:05
PROVIDERS: PCP Family Medicine; Referring Provider Internal Medicine Hematology & Oncology; Visit Provider Internal Medicine Hematology & Oncology
DX: C92.00 Acute myeloblastic leukemia, not having achieved remission (principal)
CPT/HCPCS: 96374; 96375; 36430; 86850; 86900; 86901; 86920; 86922; 86965; J7040; P9016; P9035; A4216

== ENCOUNTER 2023-03-12 13:36 | Emergency (ER) | payer OTHER, SELFPAY ==
[2023-03-12 13:37] VITALS: BP 108/68; PULSE 123; RESP 20; TEMP 36.7; O2SAT 100
[2023-03-12 13:52] VITALS: O2SAT 100
--- NOTE | 2023-03-12 13:52 | EKG12_ITS ---
Test Reason : GENERAL Blood Pressure : / mmHG Vent. Rate : 127 BPM Atrial Rate : 127 BPM P-R Int : 126 ms QRS Dur : 080 ms QT Int : 314 ms P-R-T Axes : 095 095 022 degrees QTc Int : 456 ms Suspect arm lead reversal, interpretation assumes no reversal Sinus tachycardia Rightward axis Nonspecific ST abnormality Abnormal ECG Confirmed by FLORENCIA GODINEZ, ANDREE ([id number]), editorial assistant GASTON PEREZ ([id number]) on 03/20/2023 10:38:27 AM Referred By: Confirmed By:ANDREE DON MD
--- NOTE | 2023-03-12 14:01 | EX.ED.DYSGE1 ---
HPI History of Present Illness Chief Complaint: Fever Detail of Chief Complaint: Documented fever to 102.1 ?F Informant: patient, spouse/S.O. and other (Temperature of the [place] infusion center was 101 ?F. She also was tachycardic) Onset/Context/Timing Onset: Days (3 days ago March 09) Context: Sudden Onset Timing: Intermittent Quality: Tmax 102.1 Location: Not applicable Current Severity: Gone (Patient did receive Tylenol prior to arrival at the infusion center.) Worsened by: Nothing specific Relieved by: Tylenol Associated Symptoms Associated Symptoms: Patient was unaware that her skin is yellow. Narrative Narrative: Patient is a 38-year-old woman with history of acute myeloblastic leukemia diagnosed approxi-1 years ago. Her white count on March 04 was 0.88 with an absolute neutrophil count of approximately 400. On May 07 her white blood count is 1.2. There was no differential. She did have a platelet count of 11,000. She received 1 unit of blood at the transfusion center and 1 pack of platelets. Nurse at the infusion center contacted Dr. Gilles Caba who requested patient go to the emergency room for sepsis work-up. Patient states she has been compliant with the acyclovir, fluconazole and levofloxacin. Patient is noted to have a lesion lower lip which was first noticed on Saturday. She also has multiple lesions and bruises on her lower extremity which were noted a couple of days ago. Patient was unaware that her eyes are yellow or that her skin is yellow. She denies headache. She denies photophobia. She denies earache. She denies rhinorrhea, congestion or postnasal drainage. She does admit to sore throat. She denies chest pain. She denies cough or shortness of breath. She denies abdominal pain, nausea, vomiting or diarrhea. She denies dysuria, frequency, urgency or hematuria. She denies paresthesia, anesthesia or motor weakness. She does complain of mild weakness. Patient has a triple lumen port that was placed March of last year. She was diagnosed with AML February of last year. Prior similar symptoms: No Recent Illness/Hospitalization: No [facility] Medical History AML (acute myeloid leukemia) Home Medications levofloxacin 500 mg tablet 500 mg PO DAILY ANTIBIOTIC 12/04/22 [History Last Taken 03/12/23] ondansetron HCl 8 mg tablet 8 mg PO Q8H PRN NAUSEA/VOMITING 12/05/22 [History Last Taken Unknown] acyclovir 400 mg tablet 400 mg PO BID ANTIVIRAL 03/08/23 [History Last Taken 03/12/23] fluconazole 200 mg tablet 600 mg PO DAILY ANTIFUNGAL 03/08/23 [History Last Taken 03/12/23] potassium chloride 40 mEq/15 mL oral liquid 40 meq (15 mL) PO DAILY #473 mL 03/12/23 [Rx Last Taken Unknown] Allergy/AdvReac Type Severity Reaction Status Date / Time No Known Allergies Allergy Verified 03/12/23 13:37 Social History (Updated 03/12/23 @ 14:10 by Rachel Thompson) household members: family Smoking Status: Never smoker ROS ROS ED Constitutional Constitutional ED: Reports chills and fever(s); Denies subjective, sweats or weight loss Eyes Eyes: Denies blurry vision, change in vision or diplopia ENT ENT ED: Reports sore throat; Denies ear pain or rhinorrhea Cardiovascular Cardiovascular: Denies chest pain, orthopnea, palpitations, paroxysmal nocturnal dyspnea or racing heartbeat Respiratory/Chest Respiratory/Chest: Denies cough, dyspnea, dyspnea on exertion, orthopnea or paroxysmal nocturnal dyspnea Gastrointestinal Gastrointestinal: Denies abdominal pain, diarrhea, melena, nausea or vomiting Genitourinary Genitourinary ED: Denies dysuria, hematuria or urinary frequency Musculoskeletal Musculoskeletal: Denies arthralgias or myalgias Integumentary Denies rash Neurologic Neurologic: Reports weakness; Denies headache(s) or paresthesias Psychiatric Psychiatric: Denies anxiety or depression Hematologic/Lymphatic Hematologic/Lymphatic: Reports systems reviewed and no addt'l complaints, except as documented Allergic/Immunologic Allergic/Immunologic ED: Denies mouth swelling, tongue swelling or urticaria EXAM Physical Exam Const Vital Signs: 03/12/23 13:37 03/12/23 14:14 03/12/23 13:52 Temperature 98.1 F Temperature Source Oral Pulse Rate 123 H Respiratory Rate 20 H Respiratory Effort Normal Respiratory Pattern Normal Blood Pressure 108/68 Blood Pressure Mean 81 Pulse Ox 100 100 Oxygen Delivery Method Room Air Room Air 03/12/23 15:39 Temperature 99.1 F Temperature Source Oral Pulse Rate 106 H Respiratory Rate 25 H Respiratory Effort Respiratory Pattern Blood Pressure 105/68 Blood Pressure Mean 80 Pulse Ox 100 Oxygen Delivery Method Room Air Positive well nourished and well developed Constitutional Narrative: Patient is jaundiced. She appears thin. She is in no distress. Vital signs are marked for tachycardia. Repeat temperature was 99.1 ?F. She is not hypoxic. General Appearance ED: well developed and NAD; Negative for cyanotic, diaphoretic or pallor HEENT Reports dry mucous membranes HEENT Narrative: Patient has a lesion central lower lip. It appears to be contusion. Mouth ED: Yes dry mucous membranes Mouth: dry mucous membranes Eyes PERRL and EOMs intact bilaterally General Eye ED: Yes pale conjunctiva and scleral icterus Neck no lymphadenopathy, supple and no JVD Neck Narrative: Trachea is midline. 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 Chest Wall inspection of chest normal and palpation of chest normal Resp normal respiratory effort and clear to auscultation bilaterally Cardio regular rhythm, S1 normal heart sound, S2 normal heart sound and no murmurs Rate: tachycardic GI normal to inspection, nondistended, normoactive bowel sounds, non-tender, non-distended and no masses; Negative for hepatosplenomegaly Back/Spine no CVA tenderness Cervical Spine: Negative for cervical spine tenderness Thoracic Spine / Upper Back: Negative for thoracic spinal tenderness Lumbar Spine / Lower Back: Negative for lumbar spinal tenderness Extremity Extremity Narrative: Patient has petechiae lower extremity and bruises. General Extremety ED: Negative for edema or tenderness General Extremity: Negative for edema Neuro oriented x3, CN's II-XII intact bilaterally and no sensory deficits noted Neuro Narrative: Patient is awake but not alert. Motor Exam: strength 5/5 throughout Psych Mood & Affect: depressed Skin No skin turgor normal Skin Narrative: Petechiae and bruises lower extremity and bruise lower lip General Skin Exam: elasticity normal and jaundice; Negative for pallor MDM MDM MDM Narrative Medical decision making narrative: Dr. Brock's notes were read. Since patient has been neutropenic recently has a fever will initiate sepsis work-up. There is no obvious source at this time. She is presently on acyclovir, fluconazole and levofloxacin. Patient reports compliance. Because of tachycardia is multifactorial. May be due to fever, may be due to infection, may be due to dehydration. Will administer 500 cc bolus. History & Record Review Additional record(s) reviewed:: Prior outpatient record and Prior labs Lab Data Attestation: I reviewed the patient's lab results. Lab results narrative: White count is 3000 with an absolute neutrophil count of approximately 2600. Hemoglobin is 7.2 and 21.2. Platelet count is 16,000. PT is slightly elevated 16.8 with an INR of 1.4. PTT is 36.6. Total bili is elevated but is only 1.4 and would not expect patient to have jaundice or scleral icterus. Patient will receive 40 mill equivalents of potassium orally for her hypokalemia. Labs: Laboratory Results - last 24 hr 03/12/23 03/12/23 13:53 14:23 WBC 3.0 L RBC 2.50 L Hgb 7.2 L Hct 21.2 L MCV 84.8 MCH 28.8 MCHC 34.0 RDW Std Deviation 40.4 RDW Coeff of Susan 13.3 Plt Count 16 L* Immature Gran % (Auto) 1.700 H Neut % (Auto) 89.5 H Lymph % (Auto) 3.4 L [place] % (Auto) 4.7 Eos % (Auto) 0.0 Baso % (Auto) 0.7 Absolute Neuts (auto) 2.7 Absolute Lymphs (auto) 0.10 L Nucleated RBC % 0 Differential Comment SCANNED Platelet Estimate MKD DEC PT 16.8 H INR 1.4 APTT 36.6 H Sodium 139 Potassium 2.8 L Chloride 106 Carbon Dioxide 26.0 Anion Gap 7 BUN 14 Creatinine 0.71 Est GFR (MDRD) Af Amer 118 Est GFR (MDRD) Non-Af 97 BUN/Creatinine Ratio 19.8 Glucose 162 H Lactic Acid 0.7 Calcium 9.0 Total Bilirubin 1.40 H AST 14 L ALT 23 Alkaline Phosphatase 70 Total Protein 6.5 Albumin 3.2 Globulin 3.3 Albumin/Globulin Ratio 1.0 Urine Color Yellow Urine Clarity Clear Urine pH 6.5 Ur Specific [place] 1.010 Urine Protein 30 H Urine Glucose (UA) Normal Urine Ketones 15 H Urine Occult Blood 25 H Urine Nitrite Negative Urine Bilirubin Negative Urine Urobilinogen Normal Ur Leukocyte Esterase Negative Urine RBC 0 SEEN Urine WBC 0-5 SEEN Ur Squamous Epith Cells 0 SEEN Urine Bacteria 0 SEEN Urine Mucus 0 SEEN Radiography Chest X-Ray - ED: 1 View and Read by ED Physician (Single view chest x-ray was independently reviewed interpreted by me at 1429 as unremarkable for any acute process. Cardiac silhouette and size normal. Perihilar region normal. Lung parenchyma is normal. Osseous structures reveal no obvious abnormality. She does have a triple-lumen right. Subc) Diagnostic Testing: Clinical Impression(s) from Imaging Studies Chest X-Ray 03/12/23 14:07 IMPRESSION: Normal x-ray examination of the chest. Electronically Signed: Patricio Salazar MD at 14:31 EST , Rhythm Strip Rhythm Strip: Sinus Tach Rate: 122 EKG Initial EKG: Attestation: I personally reviewed and interpreted this EKG as follows: Interpretation: Sinus Tachycardia (Sinus tachycardia rate of 127. ID interval is 126 ms. QRS duration 80 ms. QT duration 314 ms. [place] is to the right. There are nonspecific changes. These nonspecific changes are slightly more pronounced than noted on EKG December 05, 2022. Computer is warning that the arm leads may be reversed. ) Prior EKG tracings: available for review Prior: Changed Management Discussion w/another healthcare provider: Dairy Consultant (Dr. Gilles Caba was paged at [phone].) and Other (Notes between the nurse caring for Ms. oLra at the infusion center and Dr. Caba were reviewed.) Treatment and Re-Evaluation :: Dr. Gilles Caba was made aware of patient's presentation, findings and laboratory results. He will follow blood cultures. Plan is to discharge. If she spikes a fever again she is to return and will be admitted. Discharge Plan Triage Chief Complaint: Fever Other Complaint: Sore Throat ED Provider: Sherman Minor Dx/Rx/DC Orders Clinical Impression: Immunosuppression due to drug therapy, Anemia, Sinus tachycardia, Fever and neutropenia, Thrombocytopenia, Acute myeloblastic leukemia not having achieved remission, Acute hypokalemia Instructions: Thrombocytopenia, ED FUO Adult, ED Hypokalemia Prescriptions: New potassium chloride 40 mEq/15 mL liquid 40 meq PO DAILY Qty: 473 0RF No Action levofloxacin 500 mg tablet 500 mg PO DAILY ondansetron HCl 8 mg tablet 8 mg PO Q8H PRN (Reason: NAUSEA/VOMITING ) acyclovir 400 mg tablet 400 mg PO BID fluconazole 200 mg tablet 600 mg PO DAILY Primary Care Provider: Mook Ga Referrals: Gilles Caba DO [Med Staff - Active Staff] - 3-5 Days if not improving Mook Ga MD [Primary Care Provider] - Activity Restrictions/Additional Instructions: 1. If you have a temperature greater than 100 return to the emergency department 2. Continue taking the acyclovir, flucanazole and levofloxacin you are prescribed by Dr. Gilles Caba. 3. Your potassium was low. You were prescribed potassium. You will need your potassium level checked in 5 to 7 days. Disposition Disposition: Home, Self Care
--- NOTE | 2023-03-12 14:07 | RAD_ITS ---
STUDY: X-RAY CHEST REASON FOR EXAM: Female, 38 years old. Fever, immune suppressed due to chemo TECHNIQUE: Single AP portable view of the chest. COMPARISON: None. FINDINGS: A right-sided catheter is seen with the tip at the junction of the superior vena cava and right atrium. The lungs are clear and expanded. There is no demonstrated pleural abnormality. Normal size heart. Normal mediastinum and rick. Normal visualized pulmonary arteries. Normal visualized aortic arch and descending thoracic aorta. Normal visualized thoracic spine. Normal visualized ribs, clavicles, and shoulders. There is no demonstrated abnormality of the visualized soft tissue structures of the upper abdomen. RAD/Chest 1 View (Portable) IMPRESSION: Normal x-ray examination of the chest. Electronically Signed: Patricio Salazar MD at 14:31 EST ,
[2023-03-12 14:08] LABS: Absolute Neutrophil Count 2.7 X10^3/uL (2.0-7.7); Basophil# 0.02 X10^3/uL; Basophil% 0.7 % (0-1); Hematocrit 21.2 % (37-47); Hemoglobin 7.2 g/dL (12.0-15.0); Lymphocyte % 3.4 % (19-41); Mean Corpuscular Hgb 28.8 pg (27.0-32.0); Mean Corpuscular Volume 84.8 fL (81-99); Monocyte# 0.14 X10^3/uL; Monocyte% 4.7 % (0-10); NRBC Flagged by Analyzer 0 % (0-5); Neutrophil # 2.66 X10^3/uL (2.7-7.7); Neutrophil % 89.5 % (47-70); POSITIVE COUNT YES; POSITIVE DIFFERENTIAL YES; POSITIVE MORPHOLOGY YES; Platelet Count 16 K/mm3 (150-450); RBC Distribution Width CV 13.3 % (11.6-14.6); RBC Distribution Width SD 40.4 fl (35.1-43.9)
[2023-03-12 14:10] LABS: Differential Indicated SCAN CRITERIA MET
[2023-03-12 14:23] LABS: AST(SGOT) 14 U/L (15-37); Alanine Aminotransfer ALT/SGPT 23 U/L (13-56); Albumin, Serum 3.2 g/dL (3.2-5.0); Alkaline Phosphatase 70 U/L (45-117); Anion Gap 7 (5-15); BUN 14 mg/dL (7-18); BUN/Creat Ratio 19.8 RATIO (10-20); Chloride 106 mmol/L (98-107); Creatinine, Serum 0.71 mg/dL (0.55-1.02); EST Glomerular Filtration Rate 97 mL/min (>60); Est Glom Filt Rate - Afr Amer 118 mL/min (>60); Globulin 3.3 g/dL (2.2-4.2); Glucose 162 mg/dL (74-106); Potassium 2.8 mmol/L (3.5-5.1); Protein, Total 6.5 g/dL (6.4-8.2); Sodium Level 139 mmol/L (136-145)
[2023-03-12 14:31] LABS: Differential Comment SCANNED; International Normalized Ratio 1.4; Platelet Estimate MKD DEC (ADEQ); Prothrombin Time (Protime)PT. 16.8 SECONDS (11.7-14.9)
[2023-03-12 14:32] LABS: Partial Thromboplast Time 36.6 Seconds (24.1-36.2)
[2023-03-12 14:37] LABS: Bacteria 0 SEEN /hpf (None Seen); Mucous, Urine 0 SEEN /hpf (<or=2+); Red Blood Cells-Urine 0 SEEN /hpf (0-5); Squamous Epithelial Cells - UA 0 SEEN /hpf (5-10)
[2023-03-12 14:39] LABS: Lactic Acid 0.7 mmol/L (0.4-1.9)
[2023-03-12 15:08] LABS: Color, Urine Yellow (Yellow); Glucose, Dipstick Normal (Normal); Ketone-Dipstick 15 mg/dl (Negative); Leukocyte Esterase-Dipstick Negative /ul (Negative); Nitrite-Dipstick Negative (Negative); Occult Blood-Urine 25 /ul (Negative); Protein-Dipstick 30 mg/dl (Negative); Urine Bilirubin Dipstick Negative (Negative); Urine Clarity Clear (Clear); Urine Urobilinogen Normal (Normal); Urine pH 6.5 (5.0 - 8.0)
[2023-03-12 15:12] LABS: White Blood Cells 0-5 SEEN /hpf (0-5)
[2023-03-12] MEDS: Potassium Chloride Oral Soln 20 MEQ/15 ML UDC 40 MEQ PO (15:14)
[2023-03-12 15:16] VITALS: BMI 20.5
[2023-03-12 15:39] VITALS: BP 105/68; PULSE 106; RESP 25; TEMP 37.3; O2SAT 100
[2023-03-12 16:21] VITALS: BP 113/84; PULSE 100; RESP 16; O2SAT 100
[2023-03-14 10:43] LABS: Pathologist Review Reviewed
== END 2023-03-12 16:23 | disposition home or self-care (01) ==
PROVIDERS: Emergency Provider Emergency Medicine; PCP Family Medicine; Visit Provider Emergency Medicine
DX: D84.821 Immunodeficiency due to drugs (principal); C92.00 Acute myeloblastic leukemia, not having achieved remission; D70.9 Neutropenia, unspecified; D69.6 Thrombocytopenia, unspecified; E87.6 Hypokalemia; R00.0 Tachycardia, unspecified
CPT/HCPCS: 71045; 80053; 81001; 83605; 85025; 85610; 85730; 87040; 87086; 87880; 93005; 99284; A4216

== ENCOUNTER 2023-03-26 11:58 | Outpatient (CLI) | payer OTHER, SELFPAY ==
[2023-03-26 12:13] VITALS: BP 116/78; PULSE 101; RESP 16; TEMP 36.3; O2SAT 100; BMI 19.5
[2023-03-26] MEDS: 0.9% Normal Saline (500mL Bag) 500 ML 15 ML IV (12:32)
[2023-03-26] MEDS: Hydrocortisone Sod Succinate 100 MG/2 ML Vial IV (12:32)
[2023-03-26] MEDS: Acetaminophen 500 MG Tablet 1000 MG PO (12:32)
[2023-03-26] MEDS: DiphenhydrAMINE 50 MG/ML Syringe IV (12:33)
[2023-03-26] MEDS: 0.9% NaCl VAD Flush IV ×2 (12:38→14:11)
[2023-03-26 13:20] VITALS: BP 122/81; PULSE 101; RESP 16; TEMP 37.4; O2SAT 100
[2023-03-26 13:27] VITALS: BP 130/81; PULSE 98; RESP 16; TEMP 37.1; O2SAT 100
[2023-03-26 13:54] VITALS: BP 134/89; PULSE 85; RESP 16; TEMP 37.1; O2SAT 100
[2023-03-26 14:09] VITALS: BP 142/91; PULSE 94; RESP 16; TEMP 36.8; O2SAT 100
== END 2023-03-26 11:59 | disposition home or self-care (01) ==
LOC: MEDOUTP 11:59
PROVIDERS: PCP Family Medicine; Referring Provider Internal Medicine Hematology & Oncology; Visit Provider Internal Medicine Hematology & Oncology
DX: C92.00 Acute myeloblastic leukemia, not having achieved remission (principal); D61.818 Other pancytopenia
CPT/HCPCS: 96374; 96375; 36430; 86900; 86901; 86965; J7040; P9035; A4216

== ENCOUNTER 2023-03-29 09:35 | Outpatient (CLI) | payer OTHER, SELFPAY ==
[2023-03-29 09:43] VITALS: BP 138/88; PULSE 98; RESP 16; TEMP 36.7; O2SAT 100
[2023-03-29] MEDS: 0.9% Normal Saline (500mL Bag) 500 ML 15 ML IV (09:46)
[2023-03-29] MEDS: 0.9% NaCl VAD Flush IV ×2 (09:46→12:15)
[2023-03-29] MEDS: Acetaminophen 500 MG Tablet 1000 MG PO (09:48)
[2023-03-29] MEDS: Hydrocortisone Sod Succinate 100 MG/2 ML Vial IV (09:49)
[2023-03-29] MEDS: DiphenhydrAMINE 50 MG/ML Syringe IV (09:53)
[2023-03-29 10:54] VITALS: BP 126/77; PULSE 89; RESP 16; TEMP 36.5
[2023-03-29 11:19] VITALS: BP 120/74; PULSE 88; RESP 16; TEMP 36.4
[2023-03-29 11:56] VITALS: BP 123/75; PULSE 84; RESP 16; TEMP 36.4; O2SAT 99
[2023-03-29 12:18] VITALS: BP 131/83; PULSE 78; RESP 16; TEMP 36.3
== END 2023-03-29 09:36 | disposition home or self-care (01) ==
LOC: MEDOUTP 09:35
PROVIDERS: PCP Family Medicine; Referring Provider Internal Medicine Hematology & Oncology; Visit Provider Internal Medicine Hematology & Oncology
DX: C92.00 Acute myeloblastic leukemia, not having achieved remission (principal)
CPT/HCPCS: 96374; 96375; 36430; 86900; 86901; 86965; J7040; P9035; A4216

== ENCOUNTER 2023-04-02 10:19 | Outpatient (CLI) | payer OTHER, SELFPAY ==
[2023-04-02] MEDS: Acetaminophen 500 MG Tablet 1000 MG PO (10:35)
[2023-04-02] MEDS: 0.9% NaCl VAD Flush IV ×2 (10:35→12:05)
[2023-04-02] MEDS: 0.9% Normal Saline (500mL Bag) 500 ML 15 ML IV (10:35)
[2023-04-02] MEDS: Hydrocortisone Sod Succinate 100 MG/2 ML Vial IV (10:37)
[2023-04-02] MEDS: DiphenhydrAMINE 50 MG/ML Syringe IV (10:41)
[2023-04-02 10:51] VITALS: BP 109/73; PULSE 109; RESP 16; TEMP 36.2; O2SAT 100; BMI 19.5
[2023-04-02 11:35] VITALS: BP 118/70; PULSE 101; RESP 16; TEMP 36.6
== END 2023-04-02 10:20 | disposition home or self-care (01) ==
LOC: MEDOUTP 10:19
PROVIDERS: PCP Family Medicine; Referring Provider Internal Medicine Hematology & Oncology; Visit Provider Internal Medicine Hematology & Oncology
DX: C92.00 Acute myeloblastic leukemia, not having achieved remission (principal)
CPT/HCPCS: 96374; 96375; 36430; 86900; 86901; 86965; J7040; P9035; A4216

== ENCOUNTER 2023-04-05 08:05 | Outpatient (CLI) | payer OTHER, SELFPAY ==
[2023-04-05 08:16] VITALS: BP 125/82; PULSE 123; RESP 16; TEMP 36.2; O2SAT 100; BMI 19.5
[2023-04-05] MEDS: 0.9% NaCl VAD Flush IV ×2 (08:24→12:07)
[2023-04-05] MEDS: Acetaminophen 500 MG Tablet 1000 MG PO (08:25)
[2023-04-05] MEDS: DiphenhydrAMINE 50 MG/ML Syringe IV (08:25)
[2023-04-05] MEDS: 0.9% Normal Saline (500mL Bag) 500 ML 15 ML IV (08:25)
[2023-04-05] MEDS: Hydrocortisone Sod Succinate 100 MG/2 ML Vial IV (08:31)
[2023-04-05 09:17] VITALS: BP 106/68; PULSE 109; RESP 16; TEMP 36.5; O2SAT 100
[2023-04-05 09:57] VITALS: BP 111/68; PULSE 112; RESP 16; TEMP 36.1; O2SAT 100
[2023-04-05 10:34] VITALS: BP 106/62; PULSE 93; RESP 16; TEMP 36.2; O2SAT 100
[2023-04-05 11:34] VITALS: BP 97/66; PULSE 92; RESP 16; TEMP 35.9; O2SAT 100
[2023-04-05 12:07] VITALS: BP 110/74; PULSE 84; RESP 16; TEMP 36.2; O2SAT 100
== END 2023-04-05 08:06 | disposition home or self-care (01) ==
LOC: MEDOUTP 08:05
PROVIDERS: PCP Family Medicine; Referring Provider Internal Medicine Hematology & Oncology; Visit Provider Internal Medicine Hematology & Oncology
DX: C92.00 Acute myeloblastic leukemia, not having achieved remission (principal)
CPT/HCPCS: 96374; 96375; 36430; 86850; 86900; 86901; 86920; 86922; 86965; J7040; P9016; P9035; A4216

== ENCOUNTER 2023-04-09 08:53 | Outpatient (CLI) | payer OTHER, SELFPAY ==
[2023-04-09] VITALS (11 sets, daily range): BP systolic 110–132; BP diastolic 68–80; PULSE 75–111; RESP 16; TEMP 35.8–37.2; O2SAT 100; BMI 19.5
[2023-04-09] MEDS: Acetaminophen 500 MG Tablet 1000 MG PO (09:10)
[2023-04-09] MEDS: DiphenhydrAMINE 50 MG/ML Syringe IV (09:13)
[2023-04-09] MEDS: Hydrocortisone Sod Succinate 100 MG/2 ML Vial IV (09:15)
[2023-04-09] MEDS: 0.9% NaCl VAD Flush IV (15:58)
== END 2023-04-09 08:54 | disposition home or self-care (01) ==
LOC: MEDOUTP 08:53
PROVIDERS: PCP Family Medicine; Referring Provider Internal Medicine Hematology & Oncology; Visit Provider Internal Medicine Hematology & Oncology
DX: C92.00 Acute myeloblastic leukemia, not having achieved remission (principal)
CPT/HCPCS: 96374; 96375; 36430; 86850; 86900; 86901; 86920; 86922; 86965; J7040; P9016; P9035; A4216

== ENCOUNTER 2023-04-12 08:29 | Outpatient (CLI) | payer OTHER, SELFPAY ==
[2023-04-12] MEDS: 0.9% NaCl VAD Flush IV ×2 (08:51→10:07)
[2023-04-12] MEDS: DiphenhydrAMINE 50 MG/ML Syringe IV (08:51)
[2023-04-12] MEDS: Acetaminophen 500 MG Tablet 1000 MG PO (08:51)
[2023-04-12] MEDS: Hydrocortisone Sod Succinate 100 MG/2 ML Vial IV (08:51)
[2023-04-12] MEDS: 0.9% Normal Saline (500mL Bag) 500 ML 15 ML IV (08:59)
[2023-04-12 09:06] VITALS: BP 122/81; PULSE 113; RESP 16; TEMP 36.6; O2SAT 100; BMI 19.5
[2023-04-12 09:46] VITALS: BP 124/85; PULSE 99; RESP 16; TEMP 37; O2SAT 100
[2023-04-12 10:06] VITALS: BP 117/78; PULSE 103; RESP 16; TEMP 36.6; O2SAT 100
== END 2023-04-12 08:30 | disposition home or self-care (01) ==
LOC: MEDOUTP 08:29
PROVIDERS: PCP Family Medicine; Referring Provider Internal Medicine Hematology & Oncology; Visit Provider Internal Medicine Hematology & Oncology
DX: C92.00 Acute myeloblastic leukemia, not having achieved remission (principal); D61.818 Other pancytopenia
CPT/HCPCS: 96374; 96375; 86900; 86901; 86965; J7040; P9035; A4216

== ENCOUNTER 2023-04-16 08:29 | Outpatient (CLI) | payer OTHER, SELFPAY ==
[2023-04-16] VITALS (7 sets, daily range): BP systolic 112–133; BP diastolic 73–80; PULSE 70–124; RESP 14–16; TEMP 36.1–37.1; O2SAT 98–100; BMI 18.2
[2023-04-16] MEDS: 0.9% NaCl VAD Flush IV ×2 (08:41→12:12)
[2023-04-16] MEDS: DiphenhydrAMINE 50 MG/ML Syringe IV (08:41)
[2023-04-16] MEDS: 0.9% Normal Saline (500mL Bag) 500 ML 15 ML IV (08:41)
[2023-04-16] MEDS: Acetaminophen 500 MG Tablet 1000 MG PO (08:41)
[2023-04-16] MEDS: Hydrocortisone Sod Succinate 100 MG/2 ML Vial IV (08:43)
== END 2023-04-16 08:30 | disposition home or self-care (01) ==
LOC: MEDOUTP 08:29
PROVIDERS: PCP Family Medicine; Referring Provider Internal Medicine Hematology & Oncology; Visit Provider Internal Medicine Hematology & Oncology
DX: C92.00 Acute myeloblastic leukemia, not having achieved remission (principal)
CPT/HCPCS: 96374; 96375; 36430; 86850; 86900; 86901; 86920; 86922; 86965; J7040; P9016; P9035; A4216

== ENCOUNTER 2023-04-19 08:00 | Outpatient (CLI) | payer OTHER, SELFPAY ==
[2023-04-19] VITALS (11 sets, daily range): BP systolic 102–131; BP diastolic 63–91; PULSE 82–114; RESP 16; TEMP 36.1–37.2; O2SAT 100; BMI 18.8
[2023-04-19] MEDS: DiphenhydrAMINE 50 MG/ML Syringe IV (08:18)
[2023-04-19] MEDS: Acetaminophen 500 MG Tablet 1000 MG PO (08:18)
[2023-04-19] MEDS: 0.9% Normal Saline (500mL Bag) 500 ML 15 ML IV (08:18)
[2023-04-19] MEDS: 0.9% NaCl VAD Flush IV ×2 (08:19→15:02)
[2023-04-19] MEDS: Hydrocortisone Sod Succinate 100 MG/2 ML Vial IV (08:24)
== END 2023-04-19 08:01 | disposition home or self-care (01) ==
LOC: MEDOUTP 08:01
PROVIDERS: PCP Family Medicine; Referring Provider Internal Medicine Hematology & Oncology; Visit Provider Internal Medicine Hematology & Oncology
DX: C92.00 Acute myeloblastic leukemia, not having achieved remission (principal)
CPT/HCPCS: 96374; 96375; 36430; 86850; 86900; 86901; 86920; 86922; 86965; J7040; P9016; P9035; A4216

== ENCOUNTER 2023-04-24 10:30 | Outpatient (CLI) | payer OTHER, SELFPAY ==
[2023-04-24] MEDS: 0.9% NaCl VAD Flush IV ×2 (10:43→14:45)
[2023-04-24] MEDS: 0.9% Normal Saline (500mL Bag) 500 ML 15 ML IV (10:43)
[2023-04-24] MEDS: DiphenhydrAMINE 50 MG/ML Syringe IV (10:49)
[2023-04-24] MEDS: Acetaminophen 500 MG Tablet 1000 MG PO (10:49)
[2023-04-24] MEDS: Hydrocortisone Sod Succinate 100 MG/2 ML Vial IV (10:54)
[2023-04-24 10:59] VITALS: BP 132/84; PULSE 119; RESP 14; TEMP 36.4; BMI 18.8
[2023-04-24 11:49] VITALS: BP 106/66; PULSE 86; RESP 14; TEMP 35.8
[2023-04-24 12:17] VITALS: BP 108/66; PULSE 88; RESP 16; TEMP 36.2
[2023-04-24 12:48] VITALS: BP 117/70; PULSE 76; RESP 16; TEMP 35.7
[2023-04-24 13:48] VITALS: BP 124/75; PULSE 61; RESP 16; TEMP 35.9; O2SAT 98
[2023-04-24 14:42] VITALS: BP 133/82; PULSE 75; RESP 16; TEMP 36.2
== END 2023-04-24 10:31 | disposition home or self-care (01) ==
LOC: MEDOUTP 10:30
PROVIDERS: PCP Family Medicine; Referring Provider Specialist; Visit Provider Specialist
DX: D61.818 Other pancytopenia (principal); C92.00 Acute myeloblastic leukemia, not having achieved remission
CPT/HCPCS: 96374; 96375; 36430; 86850; 86900; 86901; 86920; 86965; J7040; P9016; P9035; A4216

== ENCOUNTER 2023-04-26 12:00 | Outpatient (CLI) | payer OTHER, SELFPAY ==
[2023-04-26] MEDS: Acetaminophen 500 MG Tablet 1000 MG PO (12:13)
[2023-04-26] MEDS: DiphenhydrAMINE 50 MG/ML Syringe IV (12:14)
[2023-04-26] MEDS: 0.9% NaCl VAD Flush IV ×2 (12:14→14:11)
[2023-04-26] MEDS: Hydrocortisone Sod Succinate 100 MG/2 ML Vial IV (12:20)
[2023-04-26] MEDS: 0.9% Normal Saline (500mL Bag) 500 ML 15 ML IV (12:21)
[2023-04-26 12:24] VITALS: BP 135/84; PULSE 106; RESP 16; TEMP 36.5; O2SAT 100; BMI 18.8
[2023-04-26 12:56] VITALS: BP 132/83; PULSE 89; RESP 16; TEMP 37.2; O2SAT 99
[2023-04-26 13:20] VITALS: BP 130/95; PULSE 94; RESP 16; TEMP 36.8; O2SAT 99
[2023-04-26 14:06] VITALS: BP 140/89; PULSE 83; RESP 16; TEMP 36.8; O2SAT 99
== END 2023-04-26 12:01 | disposition home or self-care (01) ==
LOC: MEDOUTP 12:00
PROVIDERS: PCP Family Medicine; Referring Provider Specialist; Visit Provider Specialist
DX: D61.818 Other pancytopenia (principal); C92.00 Acute myeloblastic leukemia, not having achieved remission
CPT/HCPCS: 36430; 86900; 86901; 86965; J7040; P9035; A4216

== ENCOUNTER 2023-05-01 07:53 | Outpatient (CLI) | payer OTHER, SELFPAY ==
[2023-05-01] VITALS (7 sets, daily range): BP systolic 108–129; BP diastolic 72–88; PULSE 83–117; RESP 14–16; TEMP 36.6–36.9; O2SAT 100; BMI 18.2
[2023-05-01] MEDS: 0.9% NaCl VAD Flush IV ×2 (08:27→13:06)
[2023-05-01] MEDS: Acetaminophen 500 MG Tablet 1000 MG PO (08:27)
[2023-05-01] MEDS: 0.9% Normal Saline (500mL Bag) 500 ML 15 ML IV (08:27)
[2023-05-01] MEDS: Hydrocortisone Sod Succinate 100 MG/2 ML Vial IV (08:28)
[2023-05-01] MEDS: DiphenhydrAMINE 50 MG/ML Syringe IV (08:31)
== END 2023-05-01 07:54 | disposition home or self-care (01) ==
PROVIDERS: PCP Family Medicine; Referring Provider Specialist; Visit Provider Specialist
DX: C92.00 Acute myeloblastic leukemia, not having achieved remission (principal)
CPT/HCPCS: 96374; 96375; 36430; 86850; 86900; 86901; 86920; 86922; 86965; J7040; P9016; P9035; A4216

== ENCOUNTER 2023-05-07 09:01 | Outpatient (CLI) | payer OTHER, SELFPAY ==
[2023-05-07] VITALS (8 sets, daily range): BP systolic 104–121; BP diastolic 54–80; PULSE 94–133; RESP 16; TEMP 35.8–36.6; O2SAT 100; BMI 18.2
[2023-05-07] MEDS: Acetaminophen 500 MG Tablet 1000 MG PO (09:15)
[2023-05-07] MEDS: DiphenhydrAMINE 50 MG/ML Syringe IV (09:15)
[2023-05-07] MEDS: Hydrocortisone Sod Succinate 100 MG/2 ML Vial IV (09:15)
[2023-05-07] MEDS: 0.9% NaCl VAD Flush IV ×2 (09:25→15:18)
[2023-05-07] MEDS: 0.9% Normal Saline (500mL Bag) 500 ML 15 ML IV (09:28)
== END 2023-05-07 09:02 | disposition home or self-care (01) ==
LOC: MEDOUTP 09:02
PROVIDERS: PCP Family Medicine; Referring Provider Internal Medicine Hematology & Oncology; Visit Provider Internal Medicine Hematology & Oncology
DX: C92.00 Acute myeloblastic leukemia, not having achieved remission (principal)
CPT/HCPCS: 96374; 96375; 36430; 86850; 86900; 86901; 86920; 86922; 86965; J7040; P9016; P9035; A4216

== ENCOUNTER 2023-05-10 07:56 | Outpatient (CLI) | payer OTHER, SELFPAY ==
[2023-05-10] VITALS (8 sets, daily range): BP systolic 93–111; BP diastolic 47–73; PULSE 90–125; RESP 16; TEMP 36.3–36.9; O2SAT 100; BMI 17.6
[2023-05-10] MEDS: Acetaminophen 500 MG Tablet 1000 MG PO (08:13)
[2023-05-10] MEDS: 0.9% Normal Saline (500mL Bag) 500 ML 15 ML IV (08:14)
[2023-05-10] MEDS: 0.9% NaCl VAD Flush IV ×2 (08:14→13:18)
[2023-05-10] MEDS: DiphenhydrAMINE 50 MG/ML Syringe IV (08:15)
[2023-05-10] MEDS: Hydrocortisone Sod Succinate 100 MG/2 ML Vial IV (08:21)
== END 2023-05-10 07:57 | disposition home or self-care (01) ==
LOC: MEDOUTP 07:57
PROVIDERS: PCP Family Medicine; Referring Provider Internal Medicine Hematology & Oncology; Visit Provider Internal Medicine Hematology & Oncology
DX: C92.00 Acute myeloblastic leukemia, not having achieved remission (principal)
CPT/HCPCS: 96374; 96375; 36430; 86850; 86900; 86901; 86920; 86922; 86965; J7040; P9016; P9035; A4216

== ENCOUNTER 2023-05-13 14:08 | Observation (INO) | payer OTHER, SELFPAY ==
[2023-05-13] VITALS (14 sets, daily range): BP systolic 97–137; BP diastolic 46–79; PULSE 117–155; RESP 16–22; TEMP 36.9–40.4; O2SAT 92–100; BMI 17.1; BMI 17.3
[2023-05-13 15:11] LABS: Absolute Lymphocyte Count 0.34 X10^3/uL (0.83-4.51); Hematocrit 11.6 % (37-47); Lymphocyte # 0.34 X10^3/ul (0.83-4.51); Lymphocyte % 28.6 % (19-41); Mean Corp Hgb Conc 33.6 g/dL (32-36); Mean Corpuscular Hgb 29.3 pg (27.0-32.0); Mean Corpuscular Volume 87.2 fL (81-99); Mean Platelet Vol. 13.2 fl (6.2-12.0); Monocyte# 0.77 X10^3/uL; Monocyte% 64.7 % (0-10); NRBC Flagged by Analyzer 0 % (0-5); Neutrophil # 0.04 X10^3/uL (2.7-7.7); Neutrophil % 3.3 % (47-70); POSITIVE COUNT YES; POSITIVE DIFFERENTIAL YES; POSITIVE MORPHOLOGY YES; RBC Distribution Width CV 12.2 % (11.6-14.6); RBC Distribution Width SD 39.4 fl (35.1-43.9); Red Blood Count 1.33 M/mm3 (4.2-5.4)
--- NOTE | 2023-05-13 15:16 | EX.ED.DYSGE1 ---
HPI <JOSIAS Dukes - Last Filed: 05/13/23 17:53> History of Present Illness Chief Complaint: Abn Labs Narrative Narrative: Patient has history of AML requiring transfusions. She stopped chemotherapy about 6 weeks ago due to mouth sores. She sometimes needs twice weekly transfusions. She got a unit of blood and platelets on 05/10 and today had labs drawn and was told she needs to come in for another transfusion. She is feeling weak and lightheaded but has no syncope. No chest pain or shortness of breath. PFSH <JOSIAS Dukes - Last Filed: 05/13/23 17:53> [facility] Medical History AML (acute myeloid leukemia) Home Medications levofloxacin 500 mg tablet 500 mg PO DAILY ANTIBIOTIC 12/04/22 [History Last Taken 03/12/23] acyclovir 400 mg tablet 400 mg PO BID ANTIVIRAL 03/08/23 [History Last Taken 03/12/23] potassium 20 mg chewable tablet 20 mg PO BID 04/19/23 [History Last Taken Unknown] posaconazole 100 mg tablet,delayed release 300 mg PO TID 05/13/23 [History Last Taken Unknown] Allergy/AdvReac Type Severity Reaction Status Date / Time No Known Allergies Allergy Verified 05/07/23 09:27 Family History no significant family his Surgical History no surgical history Social History (Updated 05/13/23 @ 18:[address] Ruba Sellers DO) household members: family housing: house Smoking Status: Never smoker alcohol intake: never substance use type: does not use ROS <JOSIAS Dukes - Last Filed: 05/13/23 17:53> ROS ED ROS Narrative Constitutional: Positive for malaise. Negative for fever, chills. CVS: Negative for palpitations, chest pain, syncope. Respiratory: Negative for shortness of breath, cough. GI: Negative for abdominal pain, nausea, vomiting, melena, hematochezia. EXAM <JOSIAS Dukes - Last Filed: 05/13/23 17:53> Physical Exam Narrative Exam Narrative: CONST: Thin female sitting in no acute distress. EYES: Mild scleral icterus. ENT: Normal inspection, moist mucous membranes. NECK: Normal inspection. RESP: No respiratory distress, CTAB. CVS: Tachycardic with regular rhythm, no murmur, no gallop. ABD: Soft and nontender, no guarding or rebound, nondistended. SKIN: Color normal, no rash, warm, dry, intact. EXTREMITIES: Normal appearance, no pedal edema. NEURO: Oriented x4. PSYCH: Normal affect. Const Vital Signs: 05/13/23 14:09 05/13/23 15:02 05/13/23 15:02 Temperature 98.5 F Temperature Source Temporal Pulse Rate 128 H 127 H Respiratory Rate 16 19 H Respiratory Effort Normal Respiratory Pattern Normal Blood Pressure 97/59 L 132/74 H Blood Pressure Mean 71 93 Pulse Ox 97 96 Oxygen Delivery Method Room Air Room Air 05/13/23 16:00 05/13/23 17:00 05/13/23 18:00 Temperature Temperature Source Pulse Rate 138 H 140 H 143 H Respiratory Rate 16 20 H 16 Respiratory Effort Respiratory Pattern Blood Pressure 131/72 H 120/60 118/58 L Blood Pressure Mean 91 80 78 Pulse Ox 92 94 93 Oxygen Delivery Method Room Air Room Air Room Air 05/13/23 18:11 Temperature Temperature Source Pulse Rate 148 H Respiratory Rate 22 H Respiratory Effort Respiratory Pattern Blood Pressure 118/58 L Blood Pressure Mean 78 Pulse Ox 100 Oxygen Delivery Method <Dr. Carlos Alberto Kuo, DO - Last Filed: 05/13/23 18:54> Physical Exam Narrative Exam Narrative: CONST: Thin female sitting in no acute distress. EYES: Mild scleral icterus. ENT: Normal inspection, moist mucous membranes. NECK: Normal inspection. RESP: No respiratory distress, CTAB. CVS: Tachycardic with regular rhythm, no murmur, no gallop. ABD: Soft and nontender, no guarding or rebound, nondistended. SKIN: Pallor/Jaundice, no rash, warm, dry, intact. EXTREMITIES: Normal appearance, no pedal edema. NEURO: Oriented x4. PSYCH: Normal affect. Const Vital Signs: 05/13/23 14:09 05/13/23 15:02 05/13/23 15:02 Temperature 98.5 F Temperature Source Temporal Pulse Rate 128 H 127 H Respiratory Rate 16 19 H Respiratory Effort Normal Respiratory Pattern Normal Blood Pressure 97/59 L 132/74 H Blood Pressure Mean 71 93 Pulse Ox 97 96 Oxygen Delivery Method Room Air Room Air 05/13/23 16:00 05/13/23 17:00 01/15/24 18:00 Temperature Temperature Source Pulse Rate 138 H 140 H 143 H Respiratory Rate 16 20 H 16 Respiratory Effort Respiratory Pattern Blood Pressure 131/72 H 120/60 118/58 L Blood Pressure Mean 91 80 78 Pulse Ox 92 94 93 Oxygen Delivery Method Room Air Room Air Room Air 05/13/23 18:11 Temperature Temperature Source Pulse Rate 148 H Respiratory Rate 22 H Respiratory Effort Respiratory Pattern Blood Pressure 118/58 L Blood Pressure Mean 78 Pulse Ox 100 Oxygen Delivery Method [facility] <JOSIAS Dukes - Last Filed: 05/13/23 17:53> [facility] Narrative Medical decision making narrative: Patient has history of AML and anemia and thrombocytopenia requiring transfusions. She was sent in for low hemoglobin. She appears chronically ill but nontoxic. BP 132/74, HR 120s and sinus tach, otherwise normal vital signs. Her eyes are mildly jaundiced likely from hemolysis. Heart is rapid but regular with no murmurs. Lungs clear. Abdomen soft and nontender. WBC is 1.2, hemoglobin 3.9, platelets 6. CMP unremarkable. I spoke with Dr. Caba who states she has required twice weekly transfusions frequently. He agreed with giving 3 units PRBCs and 2 units of platelets. Blood products will not be ready for multiple hours and patient will require admission. Patient became more tachycardic in the 140s so EKG was obtained and shows sinus tachycardia with diffuse ST depressions which are likely demand ischemia from her critically low anemia. She is not having increased symptoms and is resting comfortably. Patient states she gets premedicated before getting blood products with Tylenol, Benadryl, and Solu-Medrol because they cause a cough. I ordered these. She has never had a severe allergic reaction or anaphylaxis. Case was be discussed with the hospitalist for admission. Consults: Hematology/oncology, hospitalist Lab Data Attestation: I reviewed the patient's lab results. Labs: Laboratory Results - last 24 hr 05/13/23 14:55 WBC 1.2 L* RBC 1.33 L Hgb 3.9 L* Hct 11.6 L MCV 87.2 MCH 29.3 MCHC 33.6 RDW Std Deviation 39.4 RDW Coeff of Susan 12.2 Plt Count 6 L* MPV 13.2 H Immature Gran % (Auto) 3.400 H Neut % (Auto) 3.3 L Lymph % (Auto) 28.6 [place] % (Auto) 64.7 H Eos % (Auto) 0.0 Baso % (Auto) 0.0 Absolute Neuts (auto) 0.0 L Absolute Lymphs (auto) 0.34 L Nucleated RBC % 0 Differential Comment SCANNED Diff Path Review May foll Sodium 136 Potassium 3.8 Chloride 102 Carbon Dioxide 25.0 Anion Gap 9 BUN 18 Creatinine 0.50 L Estim Creat Clear Calc 103.42 Est GFR (MDRD) Af Amer 178 Est GFR (MDRD) Non-Af 147 BUN/Creatinine Ratio 36.4 H Glucose 95 Calcium 8.5 Total Bilirubin 0.60 AST 18 ALT 40 Alkaline Phosphatase 108 Total Protein 5.4 L Albumin 2.0 L Globulin 3.4 Albumin/Globulin Ratio 0.6 L Blood Type O NEGATIVE Antibody Screen NEGATIVE EKG Initial EKG: Attestation: I personally reviewed and interpreted this EKG as follows: Interpretation: Sinus Tachycardia Comments: Sinus tachycardia at [address] depressions, likely demand ischemia <Dr. Carlos Alberto Kuo, DO - Last Filed: 05/13/23 18:54> [facility] MDM Narrative Medical decision making narrative: Patient has history of AML and anemia and thrombocytopenia requiring transfusions. She was sent in for low hemoglobin. She appears chronically ill but nontoxic. BP 132/74, HR 120s and sinus tach, otherwise normal vital signs. Her eyes are mildly jaundiced likely. Heart is rapid but regular with no murmurs. Lungs clear. Abdomen soft and nontender. WBC is 1.2, hemoglobin 3.9, platelets 6. CMP unremarkable. I spoke with Dr. Caba who states she has required twice weekly transfusions frequently. He agreed with giving 3 units PRBCs and 2 units of platelets. Blood products will not be ready for multiple hours and patient will require admission. Patient became more tachycardic in the 140s so EKG was obtained and shows sinus tachycardia with diffuse ST depressions which are likely demand ischemia from her critically low anemia. She is not having increased symptoms and is resting comfortably. Patient states she gets premedicated before getting blood products with Tylenol, Benadryl, and Solu-Medrol because they cause a cough. I ordered these. She has never had a severe allergic reaction or anaphylaxis. Case was be discussed with the hospitalist for admission. Consults: Hematology/oncology, hospitalist I have personally performed a face to face assessment of the patient and have reviewed the SHANNON Note. I performed a substantive portion of the visit including all aspects of the following. My [place]wick findings include: History is 38-year-old patient history of AML with pancytopenia presenting with abnormal outpatient lab work. Patient denies any shortness of breath or chest pain. Exam is tachycardic skin pale to slightly yellow. Lungs are clear abdomen nontender. Medical Decison Making patient pancytopenic. Will discuss with hematology oncology as well as with hospitalist service. EKG is a sinus tachycardia we will give some gentle hydration. I think what she needs is more blood product than fluid expansion. She is mentating well. History & Record Review Discussion w/independent historian: Patient Additional record(s) reviewed:: Prior labs Lab Data Labs: Laboratory Results - last 24 hr 05/13/23 14:55 WBC 1.2 L* RBC 1.33 L Hgb 3.9 L* Hct 11.6 L MCV 87.2 MCH 29.3 MCHC 33.6 RDW Std Deviation 39.4 RDW Coeff of Susan 12.2 Plt Count 6 L* MPV 13.2 H Immature Gran % (Auto) 3.400 H Neut % (Auto) 3.3 L Lymph % (Auto) 28.6 [place] % (Auto) 64.7 H Eos % (Auto) 0.0 Baso % (Auto) 0.0 Absolute Neuts (auto) 0.0 L Absolute Lymphs (auto) 0.34 L Nucleated RBC % 0 Differential Comment SCANNED Diff Path Review May foll Sodium 136 Potassium 3.8 Chloride 102 Carbon Dioxide 25.0 Anion Gap 9 BUN 18 Creatinine 0.50 L Estim Creat Clear Calc 103.42 Est GFR (MDRD) Af Amer 178 Est GFR (MDRD) Non-Af 147 BUN/Creatinine Ratio 36.4 H Glucose 95 Calcium 8.5 Total Bilirubin 0.60 AST 18 ALT 40 Alkaline Phosphatase 108 Total Protein 5.4 L Albumin 2.0 L Globulin 3.4 Albumin/Globulin Ratio 0.6 L Blood Type O NEGATIVE Antibody Screen NEGATIVE Discharge Plan Triage Chief Complaint: Abn Labs ED Midlevel Provider: Maame Carr ED Provider: Carlos Alberto Kuo Dx/Rx/DC Orders Clinical Impression: AML (acute myeloblastic leukemia), Pancytopenia, Tachycardia Prescriptions: No Action levofloxacin 500 mg tablet 500 mg PO DAILY acyclovir 400 mg tablet 400 mg PO BID posaconazole 100 mg tablet,delayed release (DR/EC) 300 mg PO TID Patient Comments: TAKE 1 TABLET BY MOUTH THREE TIMES DAILY potassium 20 mg tablet,chewable 20 mg PO BID Primary Care Provider: Mook Ga Referrals: Mook Ga MD [Primary Care Provider] - Capacity <JOSIAS Dukes - Last Filed: 05/13/23 17:53> [facility] Reflex Medical hold order details:: IF a medical hold is selected below, a suggested order for a MEDICAL HOLD will reflex upon signing the document. Next of kin: [place] law dictates a PRIORITY LIST for identifying legal decision-maker/legal next of kin in the following order (LNOK): 1st: The patient?s legal guardian, if any 2nd: The patient's spouse (if status is questionable, consult Risk Management) 3rd: The patient?s adult child(mat) (majority, if multiple children) 4th: The patient?s parents 5th: The patient?s adult siblings (majority, if multiple children siblings)
[2023-05-13 15:26] LABS: Differential Indicated SCAN CRITERIA MET; Hemoglobin 3.9 g/dL (12.0-15.0); Platelet Count 6 K/mm3 (150-450); White Blood Count 1.2 K/mm3 (4.4-11.0)
[2023-05-13 15:45] LABS: ALB/GLOB Ratio 0.6 RATIO (0.9-2.4); AST(SGOT) 18 U/L (15-37); Alanine Aminotransfer ALT/SGPT 40 U/L (13-56); Alkaline Phosphatase 108 U/L (45-117); Anion Gap 9 (5-15); BUN 18 mg/dL (7-18); BUN/Creat Ratio 36.4 RATIO (10-20); Calcium,Total 8.5 mg/dL (8.5-10.1); Chloride 102 mmol/L (98-107); Differential Comment SCANNED; EST Glomerular Filtration Rate 147 mL/min (>60); Est Glom Filt Rate - Afr Amer 178 mL/min (>60); Estimated Creatinine Clearance 103.42 ml/min; Globulin 3.4 g/dL (2.2-4.2); Glucose 95 mg/dL (74-106); Potassium 3.8 mmol/L (3.5-5.1); Protein, Total 5.4 g/dL (6.4-8.2); Sodium Level 136 mmol/L (136-145)
--- NOTE | 2023-05-13 16:30 | EKG12_ITS ---
Test Reason : ABN LABS Blood Pressure : / mmHG Vent. Rate : 146 BPM Atrial Rate : 146 BPM P-R Int : 100 ms QRS Dur : 068 ms QT Int : 338 ms P-R-T Axes : 082 089 051 degrees QTc Int : 526 ms Critical Test Result: High HR Sinus tachycardia with short OK ST depression, consider subendocardial injury Nonspecific T wave abnormality Abnormal ECG Confirmed by FLORENCIA GODINEZ, ANDREE ([id number]), health editor GASTON PEREZ ([id number]) on 05/15/2023 9:14:28 AM Referred By: Gilles Caba Confirmed By:ANDREE DON MD
--- NOTE | 2023-05-13 17:48 | HP.PCM.HOS_ITS ---
HPI - General General Date of Admission: 05/13/23 Date of Service: 05/13/23 Chief Complaint: Abnormal Labs HPI Narrative MALIA RIVERA, is a 38 F who presented [facility] Medical History AML (acute myeloid leukemia) Home Medications levofloxacin 500 mg tablet 500 mg PO DAILY ANTIBIOTIC 12/04/22 [History Last Taken 03/12/23] ondansetron HCl 8 mg tablet 8 mg PO Q8H PRN NAUSEA/VOMITING 12/05/22 [History Last Taken Unknown] acyclovir 400 mg tablet 400 mg PO BID ANTIVIRAL 03/08/23 [History Last Taken 03/12/23] fluconazole 200 mg tablet 600 mg PO DAILY ANTIFUNGAL 03/08/23 [History Last Taken 03/12/23] potassium 20 mg chewable tablet 20 mg PO BID 04/19/23 [History Last Taken Unknown] Allergy/AdvReac Type Severity Reaction Status Date / Time No Known Allergies Allergy Verified 05/07/23 09:27 Social History (Updated 03/12/23 @ 14:10 by Rachel Thompson) household members: family Smoking Status: Never smoker Vital Signs Vital Signs Vital Signs: 05/13/23 14:09 05/13/23 15:02 05/13/23 15:02 Temperature 98.5 F Temperature Source Temporal Pulse Rate 128 H 127 H Respiratory Rate 16 19 H Respiratory Effort Normal Respiratory Pattern Normal Blood Pressure 97/59 L 132/74 H Blood Pressure Mean 71 93 Pulse Ox 97 96 Oxygen Delivery Method Room Air Room Air Weight Weight: 43.8 kg Body Mass Index (BMI) 17.1 Results Lab / Micro Data 05/13/23 14:55 05/13/23 14:55 Labs: Laboratory Results - last 24 hr 05/13/23 14:55: WBC 1.2 L*, RBC 1.33 L, Hgb 3.9 L*, Hct 11.6 L, MCV 87.2, MCH 29.3, MCHC 33.6, RDW Std Deviation 39.4, RDW Coeff of Susan 12.2, Plt Count 6 L*, MPV 13.2 H, Immature Gran % (Auto) 3.400 H, Neut % (Auto) 3.3 L, Lymph % (Auto) 28.6, [place] % (Auto) 64.7 H, Eos % (Auto) 0.0, Baso % (Auto) 0.0, Absolute Neuts (auto) 0.0 L, Absolute Lymphs (auto) 0.34 L, Nucleated RBC % 0, Differential Comment SCANNED, Diff Path Review May foll, Sodium 136, Potassium 3.8, Chloride 102, Carbon Dioxide 25.0, Anion Gap 9, BUN 18, Creatinine 0.50 L, Estim Creat Clear Calc 103.42, Est GFR (MDRD) Af Amer 178, Est GFR (MDRD) Non-Af 147, BUN/Creatinine Ratio 36.4 H, Glucose 95, Calcium 8.5, Total Bilirubin 0.60, AST 18, ALT 40, Alkaline Phosphatase 108, Total Protein 5.4 L, Albumin 2.0 L, Globulin 3.4, Albumin/Globulin Ratio 0.6 L, Blood Type O NEGATIVE, Antibody Screen NEGATIVE Assessment & Plan Assessment/Plan (1) Pancytopenia: (2) Tachycardia: PLAN: Plan Pancytopenia secondary to AML -Chemotherapy on hold due to mouth sores and patient follows with Dr. Caba -Patient has been requiring frequent transfusions -Plan is to transfuse 3 U PRBC and 2 U platelets -Will see Dr. Caba on for repeat blood work Tachycardia -Heart rates have been in the 1 teens to 130s -Most likely related to severe anemia -Monitor and I suspect this will improve with blood transfusion AML -Follows with Dr. Caba -Last chemo was 6 weeks ago and this was on hold due to mouth sores -Per discussion with Dr. Caba it sounds as if she may be contemplating hospice and he will have further discussion with her at her next visit with her DVT prophylaxis -SCDs -No chemoprophylaxis due to severe anemia and thrombocytopenia CODE STATUS Charges/Coding Visit Charges Inpatient E&M: 90411 Init Hosp L1
--- NOTE | 2023-05-13 17:48 | PCM.HP.STD ---
HPI - General General Date of Admission: 05/13/23 Date of Service: 05/13/23 Chief Complaint: Abnormal Labs HPI Narrative MALIA RIVERA, is a 38 F who presented to the emergency department at [facility] on 05/13/2023 due to abnormal labs as an outpatient. The patient has a history of AML in had been receiving treatment with Dr. Caba up until about 6 weeks ago. Chemotherapy was stopped at that time due to mouth sores and she has been requiring at times twice weekly transfusions. Dr. Caba obtains blood on her to check her counts on Saturday and of every week. She last got a unit of blood and platelets on 05/10/2023 but had labs drawn today in the outpatient setting and was told she needed to come in for further transfusion. She complains of feeling weak and lightheaded and tachycardic but denies any chest pain, shortness of breath, or syncope. Vital signs on presentation showed temperature of 98.5, heart rate was 128-148, blood pressure was 132/74, respiratory rate has been between 16 and 20 and oxygen saturations are 96% on room air. Her white count was 1.2, hemoglobin 3.9, platelet count was 6000. Her chemistry panel was unremarkable. Blood type was O- and her antibody screen was negative. 3 units of packed red blood cells and 2 packs of platelets were ordered per discussion with oncology. Given that her transfusion will take too long to be staying in the emergency department request for admission was made for blood products with probable discharge tomorrow. [facility] Medical History AML (acute myeloid leukemia) Home Medications levofloxacin 500 mg tablet 500 mg PO DAILY ANTIBIOTIC 12/04/22 [History Last Taken 03/12/23] acyclovir 400 mg tablet 400 mg PO BID ANTIVIRAL 03/08/23 [History Last Taken 03/12/23] potassium 20 mg chewable tablet 20 mg PO BID 04/19/23 [History Last Taken Unknown] posaconazole 100 mg tablet,delayed release 300 mg PO TID 05/13/23 [History Last Taken Unknown] Allergy/AdvReac Type Severity Reaction Status Date / Time No Known Allergies Allergy Verified 05/07/23 09:27 no significant family history no surgical history Social History (Updated 05/13/23 @ 18:[address] Ruba Sellers DO) household members: family housing: house Smoking Status: Never smoker alcohol intake: never substance use type: does not use ROS Constitutional Constitutional: Reports fatigue, malaise and weakness; Denies anorexia, change in weight, chills, fever(s), night sweats or other Eyes Eyes: Denies blurry vision, change in eye color, change in vision, discharge from eye(s), double vision, erythema, eye pain, loss of vision or other ENT HEENT: Denies abnormal hearing, dysphagia, ear pain, epistaxis, headache(s), hearing loss, nasal congestion, nasal discharge, post nasal drip, sinus pressure, sore throat or other Cardiovascular Cardiovascular: Reports dyspnea on exertion, lightheadedness and other Details: Tachycardia ; Denies chest pain, claudication, edema, orthopnea, palpitations, paroxysmal nocturnal dyspnea, rapid heart rate or syncope Respiratory/Chest Respiratory/Chest: Denies cough, dyspnea, excessive phlegm production, hemoptysis, productive cough, shortness of breath at rest, shortness of breath with exertion, wheezing or other Gastrointestinal Gastrointestinal: Denies abdominal pain, coffee ground emesis, constipation, diarrhea, dyspepsia, hematemesis, hematochezia, loose stools, melena, nausea, vomiting or other Genitourinary Genitourinary: Denies burning urination, difficulty urinating, dysuria, hematuria, nocturia, urinary frequency, urinary hesitancy, urinary incontinence, urinary urgency or other Musculoskeletal Musculoskeletal: Denies arthralgias, back pain, joint pain, joint stiffness, joint swelling, myalgias, neck pain or other Neurologic Neurologic: Denies abnormal gait, abnormal speech, confusion, disequilibrium, dizziness, focal weakness, headache(s), numbness, paresthesias, seizure-like activity, seizures, syncope, tingling, tremor(s) or other Psychiatric Psychiatric: Denies anxiety, depression, homicidal ideation, suicidal ideation or other Endocrine Endocrinology: Denies change in body appearance, cold intolerance, excessive sweating, heat intolerance, polydipsia, polyuria or other Hematologic/Lymphatic Hematologic/Lymphatic: Denies anemia, easy bleeding, easy bruising, lymphadenopathy or other Allergic/Immunologic Allergic/Immunologic: Denies rhinitis, hives, eczemia, asthma or other Vital Signs Vital Signs Vital Signs: 05/13/23 14:09 05/13/23 15:02 05/13/23 15:02 Temperature 98.5 F Temperature Source Temporal Pulse Rate 128 H 127 H Respiratory Rate 16 19 H Respiratory Effort Normal Respiratory Pattern Normal Blood Pressure 97/59 L 132/74 H Blood Pressure Mean 71 93 Pulse Ox 97 96 Oxygen Delivery Method Room Air Room Air Weight Weight: 43.8 kg Body Mass Index (BMI) 17.1 Physical Exam Const alert, oriented x3 and no apparent distress; Negative for average body habitus, healthy appearing or well nourished Constitutional Narrative: Thin, middle-aged, white female, lying in bed, at bedside, patient appears older than stated age General Appearance: cooperative HEENT normocephalic, head/scalp atraumatic, hearing grossly normal bilaterally and moist oral mucous membranes HEENT Narrative: Dentition is poor, Mallampati is 2, no thrush Resp normal respiratory effort, no retractions, no use of accessory muscles and clear to auscultation bilaterally Auscultation: Negative for rales, rhonchi or wheezes Cardio regular rhythm, S1 normal heart sound, S2 normal heart sound, no murmurs, no rub, no gallops, no clicks and no JVD Cardio Narrative: Sinus tachycardia GI normal to inspection, nondistended, normoactive bowel sounds, soft to palpation and non-tender GI Narrative: Scaphoid abdomen Extremity no clubbing, cyanosis or edema Extremity Narrative: Bounding 2+ pedal pulses Neuro oriented x3, moves all extremities and no focal motor deficits Speech: speech normal Psych Psych Narrative: Affect is flat, eye contact is good, patient interacts appropriately Results Lab / Micro Data 05/13/23 14:55 05/13/23 14:55 Labs: Laboratory Results - last 24 hr 05/13/23 14:55: WBC 1.2 L*, RBC 1.33 L, Hgb 3.9 L*, Hct 11.6 L, MCV 87.2, MCH 29.3, MCHC 33.6, RDW Std Deviation 39.4, RDW Coeff of Susan 12.2, Plt Count 6 L*, MPV 13.2 H, Immature Gran % (Auto) 3.400 H, Neut % (Auto) 3.3 L, Lymph % (Auto) 28.6, [place] % (Auto) 64.7 H, Eos % (Auto) 0.0, Baso % (Auto) 0.0, Absolute Neuts (auto) 0.0 L, Absolute Lymphs (auto) 0.34 L, Nucleated RBC % 0, Differential Comment SCANNED, Diff Path Review May foll, Sodium 136, Potassium 3.8, Chloride 102, Carbon Dioxide 25.0, Anion Gap 9, BUN 18, Creatinine 0.50 L, Estim Creat Clear Calc 103.42, Est GFR (MDRD) Af Amer 178, Est GFR (MDRD) Non-Af 147, BUN/Creatinine Ratio 36.4 H, Glucose 95, Calcium 8.5, Total Bilirubin 0.60, AST 18, ALT 40, Alkaline Phosphatase 108, Total Protein 5.4 L, Albumin 2.0 L, Globulin 3.4, Albumin/Globulin Ratio 0.6 L, Blood Type O NEGATIVE, Antibody Screen NEGATIVE Assessment & Plan Assessment/Plan (1) Pancytopenia: (2) Tachycardia: PLAN: Plan Pancytopenia secondary to AML -Chemotherapy on hold due to mouth sores and patient follows with Dr. Caba -Patient has been requiring frequent transfusions -Plan is to transfuse 3 U PRBC and 2 U platelets -Will see Dr. Caba on for repeat blood work Tachycardia -Heart rates have been in the 1 teens to 130s -Most likely related to severe anemia -Monitor and I suspect this will improve with blood transfusion AML -Follows with Dr. Caba -Last chemo was 6 weeks ago and this was on hold due to mouth sores -Per discussion with Dr. Caba it sounds as if she may be contemplating hospice and he will have further discussion with her at her next visit with her DVT prophylaxis -SCDs -No chemoprophylaxis due to severe anemia and thrombocytopenia CODE STATUS DNR CCA with no intubation as verified on admission Charges/Coding Visit Charges Inpatient E&M: 93292 Init Hosp L1
[2023-05-13] MEDS: 0.9% Normal Saline (500mL Bag) 500 ML 999 ML IV (18:09)
--- NOTE | 2023-05-13 18:11 | NURSING ---
MED SURG OBS GRETTA ANEMIA
[2023-05-13] MEDS: Acetaminophen 325 MG Tablet 650 MG PO (20:46)
[2023-05-13] MEDS: Acyclovir 200 MG Capsule 400 MG PO (20:46)
[2023-05-13] MEDS: MethylPREDNISolone 125 MG/2 ML Vial IV (21:43)
[2023-05-13] MEDS: DiphenhydrAMINE 50 MG/ML Syringe 25 MG IV (21:43)
[2023-05-13] MEDS: MELATONIN 3 MG TABLET PO (22:43)
[2023-05-13] MEDS: 0.9% Saline Lock 10 ML Syringe IV (22:44)
[2023-05-14] VITALS (17 sets, daily range): BP systolic 102–133; BP diastolic 61–94; PULSE 76–112; RESP 12–19; TEMP 35.6–36.9; O2SAT 98–100
--- NOTE | 2023-05-14 04:50 | NURSING ---
2nd unit of platelets would not scan in the [facility]. Verified on paper wKyra Mars RN. Started @ [id number], vitals documented on worklist.
[2023-05-14 06:19] LABS: Basophil# 0.01 X10^3/uL; Basophil% 3.1 % (0-1); Hematocrit 21.1 % (37-47); Hemoglobin 6.9 g/dL (12.0-15.0); Lymphocyte % 31.3 % (19-41); Mean Corp Hgb Conc 32.7 g/dL (32-36); Mean Corpuscular Hgb 27.6 pg (27.0-32.0); Mean Corpuscular Volume 84.4 fL (81-99); Mean Platelet Vol. 9.2 fl (6.2-12.0); Monocyte% 62.5 % (0-10); NRBC Flagged by Analyzer 0 % (0-5); POSITIVE COUNT YES; POSITIVE DIFFERENTIAL YES; POSITIVE MORPHOLOGY YES; RBC Distribution Width CV 13.5 % (11.6-14.6); RBC Distribution Width SD 42.5 fl (35.1-43.9)
[2023-05-14 06:21] LABS: Differential Indicated SCAN CRITERIA MET; Platelet Count 17 K/mm3 (150-450); White Blood Count 0.3 K/mm3 (4.4-11.0)
[2023-05-14 07:19] LABS: Atypical Lymphocyte 1+ %; Differential Comment SCANNED; Platelet Estimate MKD DEC (ADEQ)
[2023-05-14] MEDS: Ensure Plus High Protein 120 ML LIQUID PO ×2 (09:00→12:26)
[2023-05-14] MEDS: Potassium Chloride Oral Tablet 20 MEQ PO ×2 (09:00→17:35)
[2023-05-14] MEDS: levoFLOXacin 500 MG Tablet PO (11:00)
[2023-05-14] MEDS: 0.9 % NaCl (Sterile) Posiflush 10 mL IV (11:00)
[2023-05-14] MEDS: Acyclovir 200 MG Capsule 400 MG PO (11:00)
[2023-05-14 12:57] LABS: Pathologist Review Reviewed
[2023-05-14 12:57] LABS: Pathologist Review Reviewed
--- NOTE | 2023-05-14 13:47 | NURSING ---
05/14/23@ 1300- ASK PT AND IF THEY WOULD BE ABLE TO BRING HOME MEDICATION, POSACONAZOLE DUE TO ITS UNAVAILABILITY HERE FROM [facility]. PT AND AGREEABLE IF PT DOES NOT DC HOME AFTER BLOOD TRANSFUSION. WILL CONTINUE TO MONITOR. PHARMACY AND DR. BUTTS AWARE.
--- NOTE | 2023-05-14 17:44 | DCINST_ITS ---
Discharge Instructions Diet Discharge Diet: - (Resume previous diet) Activity Discharge Activity: Return to Normal Activity Follow Up Care Test Results: Test results from this visit will be discussed in further detail at your follow- up appointment, if applicable. Discharge Plan Admission Admit Date/Time: 05/13/23 17:56 Primary Reason for Your Visit: Low blood counts Attending Provider: Rachel Acharya Primary Care Provider: Mook Ga Consulting Providers: Ruba Sellers Instructions Patient Instructions: Blood Transfusion Adult, Blood Transfusion Adult Dc Additional Instructions / Restrictions: DISCHARGE INSTRUCTIONS PLEASE READ *Please take this with you to your next doctors appointment* -Please follow-up with Dr. Caba on as previously scheduled and please have your routine blood work done -Continue home medications -Please call your primary care provider's office upon discharge to schedule a hospital follow up within 1 week. -For any concerning signs or symptoms please call 911 or proceed to the nearest emergency department Discharge Orders/Prescriptions Prescriptions: Continued levofloxacin 500 mg tablet 500 mg PO DAILY acyclovir 400 mg tablet 400 mg PO BID posaconazole 100 mg tablet,delayed release (DR/EC) 300 mg PO TID Patient Comments: TAKE 1 TABLET BY MOUTH THREE TIMES DAILY potassium 20 mg tablet,chewable 20 mg PO BID Referrals / Follow Up: Gilles Caba DO [Med Staff - Active Staff] - 05/16/23 Mook Ga MD [Primary Care Provider] - Within 1 Week Disposition Disposition (needs filled in before D/C Order can be placed): Home, Self Care
--- NOTE | 2023-05-14 17:48 | DS.PCM_ITS ---
Providers Date of Admission: 05/13/23 Date of Discharge: 05/14/23 Primary Care Physician: Dr. 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 on 05/13/2023 due to abnormal labs as an outpatient. The patient has a history of AML in had been receiving treatment with Dr. Caba up until about 6 weeks ago. Chemotherapy was stopped at that time due to mouth sores and she has been requiring at times twice weekly transfusions. Dr. Caba obtains blood on her to check her counts on Saturday and of every week. She last got a unit of blood and platelets on 05/10/2023 but had labs drawn today in the outpatient setting and was told she needed to come in for further transfusion. She complains of feeling weak and lightheaded and tachycardic but denies any chest pain, shortness of breath, or syncope. Vital signs on presentation showed temperature of 98.5, heart rate was 128-148, blood pressure was 132/74, respiratory rate has been between 16 and 20 and oxygen saturations are 96% on room air. Her white count was 1.2, hemoglobin 3.9, platelet count was 6000. Her chemistry panel was unremarkable. Blood type was O- and her antibody screen was negative. 3 units of packed red blood cells and 2 packs of platelets were ordered per discussion with oncology. Given that her transfusion will take too long to be staying in the emergency department request for admission was made for blood products with probable discharge tomorrow. INTERVAL HISTORY: Patient received 3 units packed red blood cells and 2 packs of platelets with improvement of hemoglobin to 6.9 and platelets to 17, tachycardia also improved, did spike temperature during transfusions overnight, spoke with Dr. Caba who agreed with 1 more unit of packed red blood cells and DC to follow-up on with labs and oncology. Discussed fever, patient already on all of her chronic suppressive therapies and this happened only during transfusion and did not happen again, recommended obtaining blood cultures and these can be followed with adjustments in medications and management if anything is positive. Patient on day of discharge had no new or acute complaints. Physical Exam Narrative General: Alert, thin HEENT: Atraumatic, normocephalic Eyes: Anicteric, normal conjunctiva, extraocular movements grossly intact Neck: Supple Respiratory: Clear to auscultation bilaterally, normal respiratory effort Cardiovascular: Regular rate and rhythm GI: Soft, nontender, nondistended Extremities: No edema Musculoskeletal: Moving all extremities Neuro: No overt focal neurological deficits Skin: No rashes appreciated Psych: Cooperative Medical Records Data Medical Nutrition Assessment Dietitian: Malnutrition Criteria Met Start: 05/14/23 13:07 Freq: Status: Active Protocol: Document 05/14/23 13:58 RMA (Rec: 05/14/23 13:58 RMA [id number]) Nutrition Malnutrition Evidence of Malnutrition Exists Yes Malnutrition (severe): Chronic Evidenced By Suboptimal Energy Intake ( Severe),Weight Loss (Severe) Clinical Problem Chronic Disease or Condition Related Malnutrition Etiology Severe protein-calorie malnutrition in the context of chronic disease related to inadequate oral/energy intake Signs/Symptoms as evidenced by PO meeting less than 50% estimated nutrition needs x past 12 months, BMI 17.3 and unintentional weight loss ~43% down x 12 months, 25% down x 6 months and 11% down x 1 month Status Active Problem Recommendation Dietitian Recommendations/Changes Continue liberalized regular diet as ordered and encourage improved PO at meals. Will try chocolate ensure compact w/ dinner meal. Consider enteral nutrition support for energy/protein repletion especially in view of ongoing inadequate oral intake. Weight / BMI Weight Weight: 44.4 kg Body Mass Index (BMI) 17.3 ABG / Lab / Microbiology Data 05/14/23 06:10 05/13/23 14:55 Laboratory: Laboratory Results - last 24 hr 05/13/23 14:55: Diff Path Review Reviewed, Crossmatch See Detail 05/13/23 14:55: Crossmatch See Detail 05/14/23 06:10: WBC 0.3 L*, RBC 2.50 L, Hgb 6.9 L, Hct 21.1 L, MCV 84.4, MCH 27.6, MCHC 32.7, RDW Std Deviation 42.5, RDW Coeff of Susan 13.5, Plt Count 17 L*, MPV 9.2, Immature Gran % (Auto) 3.100 H, Neut % (Auto) 0.0 L, Lymph % (Auto) 31.3, [place] % (Auto) 62.5 H, Eos % (Auto) 0.0, Baso % (Auto) 3.1 H, Absolute Neuts (auto) 0.0 L, Absolute Lymphs (auto) 0.10 L, Nucleated RBC % 0, Differential Comment SCANNED, Diff Path Review Reviewed, Atypical Lymphocytes 1+, Platelet Estimate MKD DEC D/C Instructions Discharge Diet: - (Resume previous diet) Meaningful Use Info Meaningful Use Diagnoses (Choose all that apply): None applicable Discharge Plan Admission Admit Date/Time: 05/13/23 17:56 Primary Reason for Your Visit: Low blood counts Attending Provider: Rachel Acharya Primary Care Provider: Mook Ga Consulting Providers: Ruba Sellers Instructions Patient Instructions: Blood Transfusion Adult, Blood Transfusion Adult Dc Additional Instructions / Restrictions: DISCHARGE INSTRUCTIONS PLEASE READ *Please take this with you to your next doctors appointment* -Please follow-up with Dr. Caba on as previously scheduled and please have your routine blood work done -Continue home medications -Please call your primary care provider's office upon discharge to schedule a hospital follow up within 1 week. -For any concerning signs or symptoms please call 911 or proceed to the nearest emergency department Discharge Orders/Prescriptions Prescriptions: Continued levofloxacin 500 mg tablet 500 mg PO DAILY acyclovir 400 mg tablet 400 mg PO BID posaconazole 100 mg tablet,delayed release (DR/EC) 300 mg PO TID Patient Comments: TAKE 1 TABLET BY MOUTH THREE TIMES DAILY potassium 20 mg tablet,chewable 20 mg PO BID Referrals / Follow Up: Gilles Caba DO [Med Staff - Active Staff] - 05/16/23 Mook Ga MD [Primary Care Provider] - Within 1 Week Disposition Disposition (needs filled in before D/C Order can be placed): Home, Self Care Charges/Coding Visit Charges Inpatient E&M: 24608 Disch Hosp >30min
== END 2023-05-14 18:47 | disposition home or self-care (01) ==
LOC: ED 15:03 → ICU 18:54
PROVIDERS: Physician Assistant; Admitting Provider Internal Medicine; Emergency Provider Emergency Medicine; PCP Family Medicine; Referring Provider Internal Medicine Hematology & Oncology; Visit Provider Internal Medicine
DX: C92.00 Acute myeloblastic leukemia, not having achieved remission (principal); D61.818 Other pancytopenia; Z92.21 Personal history of antineoplastic chemotherapy; R00.0 Tachycardia, unspecified; Z79.899 Other long term (current) drug therapy; Z66 Do not resuscitate
CPT/HCPCS: 36430; 80053; 85025; 86644; 86850; 86900; 86901; 86920; 86965; 87040; 87077; 87149; 93005; 94668; 96361; 96374; 96375; 97802; 99221; 99252; 99283; J7040; P9016; P9035; P9040; A4216; G0378; G0463

== ENCOUNTER 2023-05-15 11:58 | Inpatient (IN) | payer OTHER, SELFPAY ==
[2023-05-15] VITALS (11 sets, daily range): BP systolic 107–130; BP diastolic 68–82; PULSE 104–146; RESP 18–29; TEMP 36.1–39.5; O2SAT 97–100; BMI 17.3
--- NOTE | 2023-05-15 13:43 | EKG12_ITS ---
Test Reason : + BLOOD CULTURES Blood Pressure : / mmHG Vent. Rate : 129 BPM Atrial Rate : 129 BPM P-R Int : 126 ms QRS Dur : 078 ms QT Int : 312 ms P-R-T Axes : 068 070 032 degrees QTc Int : 457 ms Sinus tachycardia Possible Left atrial enlargement Nonspecific ST abnormality Abnormal ECG Confirmed by FLORENCIA GODINEZ, ANDREE ([id number]), staff editor GASTON PEREZ ([id number]) on 05/17/2023 8:01:19 AM Referred By: Confirmed By:ANDREE DON MD
[2023-05-15 13:58] LABS: Absolute Lymphocyte Count 0.49 X10^3/uL (0.83-4.51); Basophil# 0.03 X10^3/uL; Basophil% 1.4 % (0-1); Hematocrit 28.1 % (37-47); Hemoglobin 9.3 g/dL (12.0-15.0); Lymphocyte # 0.49 X10^3/ul (0.83-4.51); Lymphocyte % 22.5 % (19-41); Mean Corp Hgb Conc 33.1 g/dL (32-36); Mean Corpuscular Hgb 28.4 pg (27.0-32.0); Mean Corpuscular Volume 85.7 fL (81-99); Mean Platelet Vol. 9.8 fl (6.2-12.0); Monocyte# 1.59 X10^3/uL; Monocyte% 72.9 % (0-10); NRBC Flagged by Analyzer 0 % (0-5); Neutrophil # 0.02 X10^3/uL (2.7-7.7); Neutrophil % 0.9 % (47-70); POSITIVE COUNT YES; POSITIVE DIFFERENTIAL YES; POSITIVE MORPHOLOGY YES; Platelet Count 21 K/mm3 (150-450); RBC Distribution Width CV 13.9 % (11.6-14.6); RBC Distribution Width SD 44.2 fl (35.1-43.9); Red Blood Count 3.28 M/mm3 (4.2-5.4); White Blood Count 2.2 K/mm3 (4.4-11.0)
[2023-05-15 14:05] LABS: International Normalized Ratio 1.3; Prothrombin Time (Protime)PT. 16.1 SECONDS (11.7-14.9)
[2023-05-15 14:07] LABS: Partial Thromboplast Time 28.6 Seconds (24.1-36.2)
[2023-05-15 14:09] LABS: Bacteria 0 SEEN /hpf (None Seen); Mucous, Urine 0 SEEN /hpf (<or=2+); Red Blood Cells-Urine 0 SEEN /hpf (0-5); Squamous Epithelial Cells - UA 0 SEEN /hpf (5-10); White Blood Cells 0 SEEN /hpf (0-5)
[2023-05-15] MEDS: Vancomycin HCl 750 MG in 0.9% Normal Saline (250mL Bag) 250 ML 250 MG IV (14:10)
[2023-05-15] MEDS: 0.9% Normal Saline (500mL Bag) 500 ML 999 ML IV (14:11)
[2023-05-15 14:15] LABS: Color, Urine Yellow (Yellow); Glucose, Dipstick Normal (Normal); Ketone-Dipstick Negative (Negative); Leukocyte Esterase-Dipstick Negative /ul (Negative); Nitrite-Dipstick Negative (Negative); Occult Blood-Urine Negative /ul (Negative); Protein-Dipstick 15 mg/dl (Negative); Urine Bilirubin Dipstick Negative (Negative); Urine Clarity Clear (Clear); Urine Urobilinogen 1 mg/dl (Normal)
[2023-05-15 14:31] LABS: ALB/GLOB Ratio 0.6 RATIO (0.9-2.4); AST(SGOT) 20 U/L (15-37); Alanine Aminotransfer ALT/SGPT 34 U/L (13-56); Albumin, Serum 2.1 g/dL (3.2-5.0); Alkaline Phosphatase 114 U/L (45-117); Anion Gap 12 (5-15); BUN 19 mg/dL (7-18); BUN/Creat Ratio 18.4 RATIO (10-20); CPK Total, Creatine Kinase 30 U/L (26-192); Calcium,Total 8.7 mg/dL (8.5-10.1); Chloride 102 mmol/L (98-107); Creatinine, Serum 1.03 mg/dL (0.55-1.02); EST Glomerular Filtration Rate 63 mL/min (>60); Est Glom Filt Rate - Afr Amer 76 mL/min (>60); Estimated Creatinine Clearance 50.95 ml/min; Globulin 3.6 g/dL (2.2-4.2); Glucose 213 mg/dL (74-106); Potassium 3.8 mmol/L (3.5-5.1); Protein, Total 5.7 g/dL (6.4-8.2); Sodium Level 135 mmol/L (136-145); Troponin-I HS 47 pg/mL (3.0-54.0)
--- NOTE | 2023-05-15 14:40 | RAD_ITS ---
HISTORY: sepsis. TECHNIQUE: XR Chest 1 View. COMPARISON: 03/12/2023. FINDINGS: CARDIOMEDIASTINAL BORDERS: Cardiac silhouette within normal limits in size. Mediastinal contour unremarkable. Central venous catheter tip again at the superior cavoatrial junction. LUNGS: Radiographically clear. PLEURA: No pleural effusion or pneumothorax seen. OSSEOUS STRUCTURES: Unremarkable. RAD/Chest 1 View (Portable) IMPRESSION: No acute cardiopulmonary process identified. Electronically Signed: Esther Prather MD at 14:57 EST ,
[2023-05-15 15:02] LABS: Lactic Acid 2.8 mmol/L (0.4-1.9)
--- NOTE | 2023-05-15 15:19 | EX.ED.DYSGE1 ---
HPI History of Present Illness Chief Complaint: Other, Pain/Inj Narrative Narrative: Patient is a 38-year-old female yes patient is a 38-year-old female who is presenting to the ER with chief complaint of being told to come back to the ER from the nurse at Dr. Caba Office for positive blood cultures. Patient is slightly jaundiced with scleral icterus at baseline. Patient has history of AML. Patient was just in the hospital on Saturday and discharged yesterday after she received 4 units of blood and 2 packs of platelets per patient history. at bedside. Patient was told to come back to the hospital secondary to blood cultures. Patient has a right Tylenol catheterization to the right anterior chest wall, it has been in place for approximately 1 year. Patient uses for blood draws, and any type of infusions that are needed. Patient currently has no headache, or neck pain. 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 She currently has no chest pain or shortness of breath. No abdominal pain, nausea or vomiting. No significant weakness or fatigue. at bedside. The oncology office called patient and told her to come back to the ER for reevaluation. I had spoken to Dr. Esther Sellers about this patient previously to seeing her. Dr. Sellers has already talked to the oncologist, Dr. Caba about work up and admission as well. [facility] Medical History AML (acute myeloid leukemia) Home Medications levofloxacin 500 mg tablet 500 mg PO DAILY ANTIBIOTIC 12/04/22 [History Last Taken 05/14/23] acyclovir 400 mg tablet 400 mg PO BID ANTIVIRAL 03/08/23 [History Last Taken 05/14/23] posaconazole 100 mg tablet,delayed release 300 mg PO TID ANTIFUNGAL 05/13/23 [History Last Taken Unknown] acetaminophen 325 mg tablet 650 mg PO Q6H PRN PAIN 05/15/23 [History Last Taken Unknown] melatonin 3 mg tablet 3 mg PO QHS PRN SLEEP 05/15/23 [History Last Taken Unknown] potassium chloride 20 mEq tablet,extended release(part/cryst) 20 meq PO BID SUPPLEMENT 05/15/23 [History Last Taken 05/14/23] Allergy/AdvReac Type Severity Reaction Status Date / Time piperacillin [From Zosyn] AdvReac Mild Rash Verified 05/15/23 12:00 tazobactam [From Zosyn] AdvReac Mild Rash Verified 05/15/23 12:00 Social History (Updated 05/13/23 @ 18:[address] Ruba Sellers, DO) household members: family housing: house Smoking Status: Never smoker alcohol intake: never substance use type: does not use ROS ROS ED ROS Narrative REVIEW OF SYSTEMS: Unless otherwise stated in this report the patient's positive and negative responses for review of systems for constitutional, eyes, ENT, cardiovascular, respiratory, gastrointestinal, neurological, , musculoskeletal, and integument systems and related systems to the presenting problem are either stated in the history of present illness or were not pertinent or were negative for the symptoms and/or complaints related to the presenting medical problem. EXAM Physical Exam Const Vital Signs: 05/15/23 12:00 05/15/23 14:15 Temperature 99.1 F Temperature Source Temporal Pulse Rate 146 H Respiratory Rate 18 Blood Pressure 130/82 H Blood Pressure Mean 98 Pulse Ox 100 Oxygen Delivery Method Room Air Room Air MDM MDM MDM Narrative Medical decision making narrative: [address] Sellers, she accepted admission to the ICU for admission. She saw and evaluated the patient, patient will have a CT of the facial bones with IV contrast added to make sure there is no site of dental periapical abscess or any other acute infection that could be causing the positive blood cultures. She appreciated facial swelling to the left side, I did not notice that several hours ago when I initially saw the patient. Patient has already been given vancomycin and Levaquin secondary to zosyn/penicillin allergy. Dr Sellers will follow the results of the CT facial. Patient's vital signs have improved with IV fluids as well. History & Record Review Discussion w/independent historian: Patient and Family Lab Data Attestation: I reviewed the patient's lab results. Labs: Laboratory Results - last 24 hr 05/15/23 05/15/23 05/15/23 12:18 14:00 14:02 WBC 2.2 L RBC 3.28 L Hgb 9.3 L Hct 28.1 L MCV 85.7 MCH 28.4 MCHC 33.1 RDW Std Deviation 44.2 H RDW Coeff of Susan 13.9 Plt Count 21 L* MPV 9.8 Immature Gran % (Auto) 2.300 H Neut % (Auto) 0.9 L Lymph % (Auto) 22.5 [place] % (Auto) 72.9 H Eos % (Auto) 0.0 Baso % (Auto) 1.4 H Absolute Neuts (auto) 0.0 L Absolute Lymphs (auto) 0.49 L Nucleated RBC % 0 Differential Comment Diff Path Review August foll PT 16.1 H INR 1.3 APTT 28.6 Sodium 135 L Potassium 3.8 Chloride 102 Carbon Dioxide 21.0 Anion Gap 12 BUN 19 H Creatinine 1.03 H Estim Creat Clear Calc 50.95 Est GFR (MDRD) Af Amer 76 Est GFR (MDRD) Non-Af 63 BUN/Creatinine Ratio 18.4 Glucose 213 H Lactic Acid 2.8 H* Calcium 8.7 Total Bilirubin 0.40 AST 20 ALT 34 Alkaline Phosphatase 114 Total Creatine Kinase 30 Troponin I High Sens 47 Total Protein 5.7 L Albumin 2.1 L Globulin 3.6 Albumin/Globulin Ratio 0.6 L Urine Color Yellow Urine Clarity Clear Urine pH 7.0 Ur Specific [place] 1.010 Urine Protein 15 H Urine Glucose (UA) Normal Urine Ketones Negative Urine Occult Blood Negative Urine Nitrite Negative Urine Bilirubin Negative Urine Urobilinogen 1 H Ur Leukocyte Esterase Negative Urine RBC 0 SEEN Urine WBC 0 SEEN Ur Squamous Epith Cells 0 SEEN Urine Bacteria 0 SEEN Urine Mucus 0 SEEN Radiography Chest X-Ray - ED: 1 View and Read by ED Physician (No acute cardiopulmonary disease, no infiltrate, no effusion.) Diagnostic Testing: Clinical Impression(s) from Imaging Studies Chest X-Ray 05/15/23 14:40 IMPRESSION: No acute cardiopulmonary process identified. Electronically Signed: Esther Prather MD at 14:57 EST , EKG Initial EKG: Attestation: I personally reviewed and interpreted this EKG as follows: (Sinus tachycardia 129, normal axis deviation. No acute ST elevation, no acute ectopy. QTc of 457.) Discharge Plan Dx/Rx/DC Orders Clinical Impression: AML (acute myeloblastic leukemia), Gram-positive cocci bacteremia, Pancytopenia Disposition Disposition: [facility] Capacity Legal Department Mgr Reflex Medical hold order details:: IF a medical hold is selected below, a suggested order for a MEDICAL HOLD will reflex upon signing the document. Next of kin: [place] law dictates a PRIORITY LIST for identifying legal decision-maker/legal next of kin in the following order (LNOK): 1st: The patient?s legal guardian, if any 2nd: The patient's spouse (if status is questionable, consult Risk Management) 3rd: The patient?s adult child(mat) (majority, if multiple children) 4th: The patient?s parents 5th: The patient?s adult siblings (majority, if multiple children siblings)
--- NOTE | 2023-05-15 15:33 | ECHOD_ITS ---
Reason For Study: BACTEREMIA Procedure This was a 2D Doppler, Color Flow transthoracic echocardiogram. Exam performed portable in ICU/CCU. Left Ventricle Normal LV size. The estimated ejection fraction is 60 %. Normal diastololic function. No regional wall motion abnormalities noted. Right Ventricle Normal RV size. Normal systolic function. Atria Normal left atrium. Normal right atrium. Mitral Valve The mitral valve is structurally normal. No prolapse or stenosis seen. Trivial mitral valve insufficiency. Tricuspid Valve Normal tricuspid valve. Trivial tricuspid valve insufficiency. Aortic Valve The aortic valve is not well visualized in the short axis view. There is no aortic stenosis. Pulmonic Valve The pulmonic valve is not well visualized. Great Vessels Normal aortic root. Pericardium/Pleural No pericardial effusion. MMode/2D Measurements & Calculations LVIDd: 4.1 cm IVSd: 0.60 cm Ao root diam: 3.1 cm LVIDs: 2.8 cm LVPWd: 0.87 cm RVDd: 2.7 cm FS: 32.2 % LAV(MOD-bp): 23.8 ml LVAd ap4: 26.8 cm2 LVAd ap2: 24.2 cm2 LAV(MOD-bp) Indexed: 16.7 ml/m2 LVLd ap4: 7.1 cm LVLd ap2: 7.5 cm LAV(MOD-sp2): 29.0 ml EDV(MOD-sp4): 85.1 ml EDV(MOD-sp2): 65.1 ml LAV(MOD-sp4): 18.8 ml EDV(sp4-el): 85.6 ml EDV(sp2-el): 65.9 ml LVAs ap4: 15.7 cm2 LVAs ap2: 14.4 cm2 LVLs ap4: 5.7 cm LVLs ap2: 6.5 cm ESV(MOD-sp4): 37.0 ml ESV(MOD-sp2): 28.4 ml ESV(sp4-el): 37.0 ml ESV(sp2-el): 26.9 ml EF(MOD-sp4): 56.6 % EF(MOD-sp2): 56.4 % EF(sp4-el): 56.8 % SV(MOD-sp4): 48.1 ml SV(MOD-sp2): 36.8 ml SV(sp4-el): 48.6 ml LA dimension(2D): 2.4 cm LA A4 area: 9.9 cm2 RA A4 area: 9.3 cm2 TAPSE: 2.7 cm Doppler Measurements & Calculations MV E max [place]: 65.8 cm/sec Lat Peak E' [place]: 17.3 cm/sec Med Peak E' [place]: 12.8 cm/sec E/E' lat: 3.8 E/E' med: 5.1 Ao V2 max: 127.0 cm/sec LV V1 max: 110.3 cm/sec PA V2 max: 106.4 cm/sec Ao max P.5 mmHg LV V1 max P.9 mmHg PA V2 mean: 74.2 cm/sec Ao V2 mean: 86.0 cm/sec LV V1 mean P.2 mmHg Ao mean P.3 mmHg LV V1 mean: 67.4 cm/sec Ao V2 VTI: 19.1 cm LV V1 VTI: 18.9 cm AV (velocity ratio): 0.99 ECHO/Echo Complete Interpretation Summary The estimated ejection fraction is 60 %. Normal diastololic function. No obvious vegetation identified. Ordering Physician: Ruba Sellers Referring Physician: Mook Ga Performed By: Brit Bhatti, RDCS, RVT
--- NOTE | 2023-05-15 15:35 | PCM.HP.STD ---
HPI - General General Date of Admission: 05/15/23 Date of Service: 05/15/23 Chief Complaint: Abnormal labs HPI Narrative MALIA RIVERA, is a 38 F who presented to the emergency department at [facility] on 05/15/2023 due to abnormal labs. Patient was recently admitted here and discharged yesterday. She was admitted for blood transfusions which she requires frequently for her AML. She has a history of chronic pancytopenia and is neutropenic at baseline. She has AML and is currently on a hiatus from her chemotherapy as she had significant side effects related to this. She has been getting transfusions twice weekly. Between Saturday and Saturday she received 4 units of blood to give her 1 cells and a 2 pack of platelets. On the a.m. of 05/14/2023 she had a fever that was isolated incidence with a Tmax of 104 and never had recurrent fever. Blood cultures were obtained at that time and she was transfused 1 more unit of blood. She had no recurrent fevers so she was able to be discharged home after discussion with her oncologist. Unfortunately, her blood cultures resulted 2 out of 2 positive for gram-positive cocci in clusters so she was referred to come back to the emergency department for ongoing treatment. Patient states she was feeling well and had no further fevers at home and she only came to the emergency department because Dr. Caba's office called and told her to come in. She is complaining of some left-sided facial pain and seems that the left side of her face is more swollen than it had been. She has ulcers and poor dentition. Ulcers are related from previous chemotherapy. Vital signs on presentation showed a temperature of 99.1, heart rate 146, blood pressure 130/82, respiratory to 18 oxygen saturations 100% on room air. Her white count is 2.2 but her absolute neutrophil count is 0, her hemoglobin is 9.3, platelet count is 21,000. Coags only show slight elevation of her PT at 16.1. Her sodium slightly low at 135, BUN is 19 and serum creatinine is 1.03 indicating significant dehydration as her baseline serum creatinine is 0.5-0.7. Serum glucose was 213 and her lactate was 2.8. Liver enzymes are normal. UA is unremarkable. Chest x-ray shows no acute cardiopulmonary process. Blood cultures from yesterday are 2 of 2 positive for gram-positive cocci in clusters. [facility] Medical History AML (acute myeloid leukemia) Home Medications levofloxacin 500 mg tablet 500 mg PO DAILY ANTIBIOTIC 12/04/22 [History Last Taken 05/14/23] acyclovir 400 mg tablet 400 mg PO BID ANTIVIRAL 03/08/23 [History Last Taken 05/14/23] posaconazole 100 mg tablet,delayed release 300 mg PO TID ANTIFUNGAL 05/13/23 [History Last Taken Unknown] acetaminophen 325 mg tablet 650 mg PO Q6H PRN PAIN 05/15/23 [History Last Taken Unknown] melatonin 3 mg tablet 3 mg PO QHS PRN SLEEP 05/15/23 [History Last Taken Unknown] potassium chloride 20 mEq tablet,extended release(part/cryst) 20 meq PO BID SUPPLEMENT 05/15/23 [History Last Taken 05/14/23] Allergy/AdvReac Type Severity Reaction Status Date / Time piperacillin [From Zosyn] AdvReac Mild Rash Verified 05/15/23 12:00 tazobactam [From Zosyn] AdvReac Mild Rash Verified 05/15/23 12:00 Social History (Updated 05/13/23 @ 18:[address] Ruba Sellers DO) household members: family housing: house Smoking Status: Never smoker alcohol intake: never substance use type: does not use ROS Constitutional Constitutional: Reports anorexia and weakness; Denies change in weight, chills, fatigue, fever(s), malaise, night sweats or other Eyes Eyes: Denies blurry vision, change in eye color, change in vision, discharge from eye(s), double vision, erythema, eye pain, loss of vision or other ENT HEENT: Reports other Details: Left-sided facial pain with internal oral ulcers Cardiovascular Cardiovascular: Reports rapid heart rate; Denies chest pain, claudication, dyspnea on exertion, edema, lightheadedness, orthopnea, palpitations, paroxysmal nocturnal dyspnea, syncope or other Respiratory/Chest Respiratory/Chest: Denies cough, dyspnea, excessive phlegm production, hemoptysis, productive cough, shortness of breath at rest, shortness of breath with exertion, wheezing or other Gastrointestinal Gastrointestinal: Denies abdominal pain, coffee ground emesis, constipation, diarrhea, dyspepsia, hematemesis, hematochezia, loose stools, melena, nausea, vomiting or other Genitourinary Genitourinary: Denies burning urination, difficulty urinating, dysuria, hematuria, nocturia, urinary frequency, urinary hesitancy, urinary incontinence, urinary urgency or other Musculoskeletal Musculoskeletal: Denies arthralgias, back pain, joint pain, joint stiffness, joint swelling, myalgias, neck pain or other Neurologic Neurologic: Denies abnormal gait, abnormal speech, confusion, disequilibrium, dizziness, focal weakness, headache(s), numbness, paresthesias, seizure-like activity, seizures, syncope, tingling, tremor(s) or other Psychiatric Psychiatric: Denies anxiety, depression, homicidal ideation, suicidal ideation or other Endocrine Endocrinology: Denies change in body appearance, cold intolerance, excessive sweating, heat intolerance, polydipsia, polyuria or other Hematologic/Lymphatic Hematologic/Lymphatic: Reports anemia, easy bleeding, easy bruising and other Details: Thrombocytopenia/neutropenia ; Denies lymphadenopathy Allergic/Immunologic Allergic/Immunologic: Denies rhinitis, hives, eczemia, asthma or other Vital Signs Vital Signs Vital Signs: 05/15/23 12:00 05/15/23 14:15 Temperature 99.1 F Temperature Source Temporal Pulse Rate 146 H Respiratory Rate 18 Blood Pressure 130/82 H Blood Pressure Mean 98 Pulse Ox 100 Oxygen Delivery Method Room Air Room Air Weight Weight: 44.452 kg Body Mass Index (BMI) 17.3 Physical Exam Const alert, oriented x3 and no apparent distress; Negative for average body habitus, healthy appearing or well nourished Constitutional Narrative: Extremely thin, middle-aged, white female, lying in bed, appears comfortable and nontoxic General Appearance: cooperative HEENT normocephalic, head/scalp atraumatic and hearing grossly normal bilaterally; Negative for moist oral mucous membranes, oropharynx normal or dentition normal HEENT Narrative: Left-sided facial swelling with induration and tenderness, internally oral ulcerations can be seen and poor dentition with decayed teeth and caries, mucous membranes are dry Eyes PERRL and EOMs intact bilaterally; Negative for conjunctivae normal Eyes Narrative: Conjunctiva are pale bilaterally, no scleral icterus Neck no lymphadenopathy and supple Neck Narrative: Trachea midline, no thyroid enlargement Resp normal respiratory effort, no retractions, no use of accessory muscles and clear to auscultation bilaterally Auscultation: Negative for rales, rhonchi or wheezes Cardio regular rate, regular rhythm, S1 normal heart sound, S2 normal heart sound, no murmurs, no rub, no gallops and no clicks GI normal to inspection, nondistended, normoactive bowel sounds, soft to palpation and non-tender GI Narrative: Scaphoid abdomen Extremity no clubbing, cyanosis or edema Extremity Narrative: Decreased lean muscle mass Neuro oriented x3, moves all extremities and no focal motor deficits Neuro Narrative: Speech is mildly garbled due to pain on the left side of her jaw, able to open mouth about 3 to 4 cm secondary to pain Speech: Negative for speech normal Psych affect normal Psych Narrative: Eye contact is good, patient is very pleasant, interacts appropriately Results Lab / Micro Data 05/15/23 12:18 05/15/23 12:18 Labs: Laboratory Results - last 24 hr 05/15/23 12:18: WBC 2.2 L, RBC 3.28 L, Hgb 9.3 L, Hct 28.1 L, MCV 85.7, MCH 28.4, MCHC 33.1, RDW Std Deviation 44.2 H, RDW Coeff of Susan 13.9, Plt Count 21 L*, MPV 9.8, Immature Gran % (Auto) 2.300 H, Neut % (Auto) 0.9 L, Lymph % (Auto) 22.5, Jefferson % (Auto) 72.9 H, Eos % (Auto) 0.0, Baso % (Auto) 1.4 H, Absolute Neuts (auto) 0.0 L, Absolute Lymphs (auto) 0.49 L, Nucleated RBC % 0, Differential Comment , Diff Path Review August, PT 16.1 H, INR 1.3, APTT 28.6, Sodium 135 L, Potassium 3.8, Chloride 102, Carbon Dioxide 21.0, Anion Gap 12, BUN 19 H, Creatinine 1.03 H, Estim Creat Clear Calc 50.95, Est GFR (MDRD) Af Amer 76, Est GFR (MDRD) Non-Af 63, BUN/Creatinine Ratio 18.4, Glucose 213 H, Calcium 8.7, Total Bilirubin 0.40, AST 20, ALT 34, Alkaline Phosphatase 114, Total Creatine Kinase 30, Troponin I High Sens 47, Total Protein 5.7 L, Albumin 2.1 L, Globulin 3.6, Albumin/Globulin Ratio 0.6 L 05/15/23 14:00: Lactic Acid 2.8 H* 05/15/23 14:02: Urine Color Yellow, Urine Clarity Clear, Urine pH 7.0, Ur Specific Spelter 1.010, Urine Protein 15 H, Urine Glucose (UA) Normal, Urine Ketones Negative, Urine Occult Blood Negative, Urine Nitrite Negative, Urine Bilirubin Negative, Urine Urobilinogen 1 H, Ur Leukocyte Esterase Negative, Urine RBC 0 SEEN, Urine WBC 0 SEEN, Ur Squamous Epith Cells 0 SEEN, Urine Bacteria 0 SEEN, Urine Mucus 0 SEEN Micro: Microbiology 05/15/23 14:02 Mucosa - Nose SARS-CoV-2, Influenza & RSV (PCR) - Final Imagaing Radiology Impression Chest X-Ray 05/15/23 14:40 IMPRESSION: No acute cardiopulmonary process identified. Electronically Signed: Esther Prather MD at 14:57 EST Reading Location ID and State: [facility] / [place] Tel , Service support , Assessment & Plan Assessment/Plan (1) Sepsis: (2) Bacteremia due to Staphylococcus: (3) EARL (acute kidney injury): (4) Severe malnutrition: (5) Neutropenia: (6) Facial swelling: (7) Open wound of oral cavity: PLAN: Plan Sepsis secondary to gram-positive cocci in clusters -High suspicion of Staph aureus -Sepsis order set utilized with IV fluid bolus given -Check MRSA PCR -Continue vancomycin -Add cefepime -Will continue home empiric antibiotics due to neutropenia -Repeat blood cultures drawn in the emergency department however suspect this will be low yield at this time as she had not received antibiotics so I expect them to be positive as well -Check echocardiogram -Tunneled central line may need to be removed--> will wait for ID input and consult general surgery if they feel it needs removed -Coags were obtained -Consult infectious disease EARL -Baseline serum creatinine is 0.5-0.7 -On admission serum creatinine was 0.14 with a BUN of 19 -IV fluids given per sepsis bolus and then will run 150 an hour -Repeat lab in a.m. -Avoid nephrotoxins as able Left-sided facial swelling with oral wounds from chemo -Area is indurated externally and appears to be swollen -As needed oral viscous lidocaine -Could potentially be source for bacteremia -CT of the face and sinuses is pending -Broad-spectrum antibiotics as ordered and if patient has abscess may need ENT versus dental surgery assistance Neutropenic fever -See above Severe malnutrition -General soft diet -Ensure supplements Tachycardia -Likely related to the above -IV fluids -Monitor -Telemetry Pancytopenia secondary to AML -Intermittent transfusions required -Patient received a total of 4 units of packed red blood cells between Saturday and Saturday and a 2 pack of platelets -Counts are currently stable when compared to yesterday but will continue to monitor with daily lab AML -Follows with Dr. Caba -Last chemo was 6 weeks ago and this was on hold due to mouth sores -Per discussion with Dr. Caba it sounds as if she may be contemplating hospice and he will have further discussion with her at her next visit with her DVT prophylaxis -SCDs -No chemoprophylaxis due to severe anemia and thrombocytopenia CODE STATUS DNR CCA with no intubation as verified on admission Sepsis Attestation Sepsis Alert: Yes Sepsis Attestation: Agree w/Sepsis Date exam was performed: 05/15/23 Time exam was performed: 15:37 Possible Source of Sepsis: Implantable device Supportive Findings: Patient is tachycardic, has EARL, febrile with a Tmax of 104 yesterday and neutropenia with a white count less than 4000-source is suspected to be related to her tunneled catheter Charges/Coding Visit Charges Inpatient E&M: 34155 Init Hosp L2
--- NOTE | 2023-05-15 16:14 | CT_ITS ---
INDICATION: left facial swelling, poor dentition EXAMINATION: CT FACIAL BONES - CT Maxillofacial W/ Contrast Injection TECHNIQUE: Helically acquired images were obtained of the facial bones. A radiation dose optimization technique was used for this scan. IV Contrast dosage and agent: 100 mL Isovue-370 contrast RADIATION DOSAGE (If Supplied By Facility): CTDIvol = ( 29.38 ) mGy, DLP = ( 628.26 ) mGycm COMPARISON: No relevant prior comparison study available FINDINGS: SOFT TISSUES: There is an abscess measuring approximately 2.8 x 1.4 cm within the left websphere [employer] developer space, extending along the left mandibular ramus and involving the inferior temporalis musculature, with accompanying peripheral hyperenhancement. The source of this abscess is unclear but may originate from the left mandibular third molar which is impacted into second molar, which appears to be at the epicenter of the inflammation and fluid collection. This fluid collection extends through the mucosa into the oral cavity, where it appears to be spontaneously draining. VISUALIZED PARANASAL SINUSES: Mild mucosal thickening in the bilateral maxillary sinuses. Remaining paranasal sinuses are clear. VISUALIZED MASTOID AIR CELLS: Clear. FACIAL BONES, MANDIBLE AND TMJs: No displaced facial bone fracture. No lytic or blastic abnormality. VISUALIZED DENTITION: Extensive carious disease throughout the patient''s remaining dentition. The left mandibular third molar is impacted into the second molar. There is a large dental caries of the left mandibular first molar with small periapical abscess. Periapical abscess of the left maxillary second premolar, eroding through the buccal cortex, without associated subperiosteal abscess. ORBITAL CONTENTS: Both globes, extraocular muscles and retrobulbar fat appear unremarkable. CT/Sinus/Facial Bone WITH Contras IMPRESSION: * There is an abscess in the left websphere commerce developer space extending along the mandibular ramus into the inferior aspect of the temporalis musculature. The abscess measures approximately 2.8 x 1.4 cm transaxially, and appears to spontaneously draining into the oral cavity, and appears to originate from the left bending the third molar which is impacted into the second molar. * No CT evidence of osteomyelitis.. Electronically Signed: David Mercado MD at 18:05 EST ,
[2023-05-15 16:31] LABS: Hemoglobin A1c 5.2 % (3.8-5.6)
[2023-05-15] MEDS: 0.9% Normal Saline (1000mL) 1,000 ML 150 ML IV (16:38)
[2023-05-15] MEDS: levoFLOXacin IV 500 MG/100 ML BAG 100 MG IV (16:38)
--- NOTE | 2023-05-15 17:57 | PCM.RX.CS ---
Consult Antibiotic Management Pharmacy has been consulted to manage selected antibiotic: Vancomycin Type of Intervention Type of Consult: New start Suspected Infection Suspected Infection: Bacteremia Labs Labs: Sodium 135 mmol/L (136-145) L 05/15/23 12:18 Potassium 3.8 mmol/L (3.5-5.1) 05/15/23 12:18 Chloride 102 mmol/L (98-107) 05/15/23 12:18 Carbon Dioxide 21.0 mmol/L (21.0-32.0) 05/15/23 12:18 Anion Gap 12 (5-15) 05/15/23 12:18 BUN 19 mg/dL (7-18) H 05/15/23 12:18 Creatinine 1.03 mg/dL (0.55-1.02) H 05/15/23 12:18 Est GFR (MDRD) Af Amer 76 mL/min (>60) 05/15/23 12:18 Est GFR (MDRD) Non-Af 63 mL/min (>60) 05/15/23 12:18 BUN/Creatinine Ratio 18.4 RATIO (10-20) 05/15/23 12:18 Glucose 213 mg/dL (74-106) H 05/15/23 12:18 Microbiology Microbiology: Microbiology 05/15/23 14:02 Mucosa - Nose SARS-CoV-2, Influenza & RSV (PCR) - Final Goal Trough Goal Trough: 15-20 mcg/mL Pharmacy Plan for Drug Dosing Pharmacy Plan for Drug Dosing: NEW START IV VANCOMYCIN Consulting Physician: Dr. Mariya Sellers Indication: Bacteremia Goal Trough: 15-20 SrCr: 1.03 CrCl: 50 ml/min Comments: Patient had initial dose of 750mg IV x1 in ED 05/15/23 @1410 Vancomycin Dose: 500mg IV Q12hr to start 05/16/23 @0200 Pending Level: 05/17/23 @0130, prior to 4th total dose per protocol Pharmacy Service will continue to monitor and adjust dosing as required.
[2023-05-15] MEDS: 0.9% Normal Saline (1000mL) 1,000 ML 999 ML IV ×2 (18:00→19:31)
[2023-05-15] MEDS: Ensure Plus High Protein 120 ML LIQUID PO (18:03)
[2023-05-15 18:12] LABS: Reflex Lactate? Y
[2023-05-15] MEDS: Acetaminophen 325 MG Tablet 650 MG PO (18:30)
[2023-05-15 19:58] LABS: M R Staph aureus DNA By PCR Negative (Negative); Probe Check PASS; Specimen Processing Control PASS
[2023-05-15 20:01] LABS: Lactic Acid 1.9 mmol/L (0.4-1.9)
[2023-05-15] MEDS: Potassium Chloride Oral Tablet 20 MEQ PO (20:35)
[2023-05-15] MEDS: Acyclovir 200 MG Capsule 400 MG PO (20:35)
[2023-05-15] MEDS: MELATONIN 3 MG TABLET PO (23:22)
[2023-05-16] VITALS (25 sets, daily range): BP systolic 101–124; BP diastolic 59–84; PULSE 96–133; RESP 16–34; TEMP 36.4–39.2; O2SAT 96–100; BMI 17.3
[2023-05-16] MEDS: Acetaminophen 325 MG Tablet 650 MG PO ×3 (01:41→13:59)
[2023-05-16] MEDS: Vancomycin IV 500 MG/100 ML BAG 100 MG IV ×3 (02:01→18:40)
[2023-05-16 04:35] LABS: Hematocrit 19.9 % (37-47); Hemoglobin 6.6 g/dL (12.0-15.0); Mean Corp Hgb Conc 33.2 g/dL (32-36); Mean Corpuscular Hgb 28.1 pg (27.0-32.0); Mean Corpuscular Volume 84.7 fL (81-99); Mean Platelet Vol. 8.6 fl (6.2-12.0); Monocyte# 0.17 X10^3/uL; NRBC Flagged by Analyzer 0 % (0-5); Neutrophil # 0.03 X10^3/uL (2.7-7.7); POSITIVE COUNT YES; POSITIVE DIFFERENTIAL YES; POSITIVE MORPHOLOGY YES; Platelet Count 9 K/mm3 (150-450); RBC Distribution Width CV 13.6 % (11.6-14.6); RBC Distribution Width SD 42.8 fl (35.1-43.9); Red Blood Count 2.35 M/mm3 (4.2-5.4); White Blood Count 0.5 K/mm3 (4.4-11.0)
[2023-05-16 04:42] LABS: Differential Indicated SCAN CRITERIA MET
[2023-05-16 04:59] LABS: ALB/GLOB Ratio 0.6 RATIO (0.9-2.4); AST(SGOT) 28 U/L (15-37); Alanine Aminotransfer ALT/SGPT 46 U/L (13-56); Albumin, Serum 1.8 g/dL (3.2-5.0); Alkaline Phosphatase 125 U/L (45-117); Anion Gap 6 (5-15); BUN 14 mg/dL (7-18); BUN/Creat Ratio 39.3 RATIO (10-20); Calcium,Total 7.9 mg/dL (8.5-10.1); Chloride 105 mmol/L (98-107); Creatinine, Serum 0.36 mg/dL (0.55-1.02); EST Glomerular Filtration Rate 215 mL/min (>60); Est Glom Filt Rate - Afr Amer 260 mL/min (>60); Estimated Creatinine Clearance 145.77 ml/min; Glucose 109 mg/dL (74-106); Magnesium 1.9 mg/dL (1.6-2.6); Phosphorus 2.9 mg/dL (2.5-4.9); Potassium 2.8 mmol/L (3.5-5.1); Protein, Total 4.8 g/dL (6.4-8.2); Sodium Level 139 mmol/L (136-145)
[2023-05-16 05:04] LABS: Differential Comment S
--- NOTE | 2023-05-16 07:01 | PCM.PN.HOSP ---
Reason for Visit Reason for Visit: Diagnoses Sepsis, unspecified organism (05/15/23) Unspecified staphylococcus as the cause of diseases classified elsewhere (05/15/23) Neutropenia, unspecified (05/15/23) Unspecified severe protein-calorie malnutrition (05/15/23) Acute kidney failure, unspecified (05/15/23) Localized swelling, mass and lump, head (05/15/23) Bacteremia (05/15/23) Unspecified open wound of oral cavity, initial encounter (05/15/23) Subjective Subjective Patient evaluated at bedside, infectious disease recommended transfer for dental evaluation given impacted teeth and infection however patient and would like to discuss with oncology prior to deciding Objective Data Objective Data Vital Signs: Vital Signs Temp Pulse Resp BP Pulse Ox O2 Del Method 99.6 F H 104 H 19 H 107/71 97 Room Air 05/16/23 06:00 05/16/23 06:00 05/16/23 06:00 05/16/23 06:00 05/16/23 06:00 05/16/23 05:00 Oxygen Delivery Method Room Air Weight: 44.452 kg Body Mass Index (BMI) 17.3 Intake & Output: Intake and Output for Last 24 Hours 05/14/23 05/15/23 05/16/23 23:59 23:59 23:59 Intake Total 2582.5 / 2582.5 200 / 200 Output Total 700 / 2800 2700 / 2700 Balance 1882.5 / -217.5 -2500 / -2500 Lab / Micro Data 05/16/23 04:27 05/16/23 15:25 Labs: Laboratory Results - last 24 hr 05/15/23 12:18: WBC 2.2 L, RBC 3.28 L, Hgb 9.3 L, Hct 28.1 L, MCV 85.7, MCH 28.4, MCHC 33.1, RDW Std Deviation 44.2 H, RDW Coeff of Susan 13.9, Plt Count 21 L*, MPV 9.8, Immature Gran % (Auto) 2.300 H, Neut % (Auto) 0.9 L, Lymph % (Auto) 22.5, [place] % (Auto) 72.9 H, Eos % (Auto) 0.0, Baso % (Auto) 1.4 H, Absolute Neuts (auto) 0.0 L, Absolute Lymphs (auto) 0.49 L, Nucleated RBC % 0, Differential Comment , Diff Path Review August foll, PT 16.1 H, INR 1.3, APTT 28.6, Sodium 135 L, Potassium 3.8, Chloride 102, Carbon Dioxide 21.0, Anion Gap 12, BUN 19 H, Creatinine 1.03 H, Estim Creat Clear Calc 50.95, Est GFR (MDRD) Af Amer 76, Est GFR (MDRD) Non-Af 63, BUN/Creatinine Ratio 18.4, Glucose 213 H, Hemoglobin A1c 5.2, Calcium 8.7, Total Bilirubin 0.40, AST 20, ALT 34, Alkaline Phosphatase 114, Total Creatine Kinase 30, Troponin I High Sens 47, Total Protein 5.7 L, Albumin 2.1 L, Globulin 3.6, Albumin/Globulin Ratio 0.6 L 05/15/23 14:00: Lactic Acid 2.8 H* 05/15/23 14:02: Urine Color Yellow, Urine Clarity Clear, Urine pH 7.0, Ur Specific [place] 1.010, Urine Protein 15 H, Urine Glucose (UA) Normal, Urine Ketones Negative, Urine Occult Blood Negative, Urine Nitrite Negative, Urine Bilirubin Negative, Urine Urobilinogen 1 H, Ur Leukocyte Esterase Negative, Urine RBC 0 SEEN, Urine WBC 0 SEEN, Ur Squamous Epith Cells 0 SEEN, Urine Bacteria 0 SEEN, Urine Mucus 0 SEEN 05/15/23 18:36: MRSA (PCR) Negative 05/15/23 18:55: Lactic Acid 1.9 05/16/23 04:27: WBC 0.5 L*, RBC 2.35 L, Hgb 6.6 L, Hct 19.9 L, MCV 84.7, MCH 28.1, MCHC 33.2, RDW Std Deviation 42.8, RDW Coeff of Susan 13.6, Plt Count 9 L*, MPV 8.6, Immature Gran % (Auto) 0.000, Neut % (Auto) 6.0 L, Lymph % (Auto) 60.0 H, [place] % (Auto) 34.0 H, Eos % (Auto) 0.0, Baso % (Auto) 0.0, Absolute Neuts (auto) 0.0 L, Absolute Lymphs (auto) 0.30 L, Nucleated RBC % 0, Differential Comment S, Diff Path Review May foll, Sodium 139, Potassium 2.8 L, Chloride 105, Carbon Dioxide 28.0, Anion Gap 6, BUN 14, Creatinine 0.36 L, Estim Creat Clear Calc 145.77, Est GFR (MDRD) Af Amer 260, Est GFR (MDRD) Non-Af 215, BUN/Creatinine Ratio 39.3 H, Glucose 109 H, Calcium 7.9 L, Phosphorus 2.9, Magnesium 1.9, Total Bilirubin 0.70, AST 28, ALT 46, Alkaline Phosphatase 125 H, Total Protein 4.8 L, Albumin 1.8 L, Globulin 3.0, Albumin/Globulin Ratio 0.6 L Micro: Microbiology 05/15/23 14:02 Mucosa - Nose SARS-CoV-2, Influenza & RSV (PCR) - Final Radiography Diagnostic Testing: Radiology Impression Chest X-Ray 05/15/23 14:40 IMPRESSION: No acute cardiopulmonary process identified. Electronically Signed: Esther Prather MD at 14:57 EST , Facial/Sinus 05/15/23 16:14 IMPRESSION: * There is an abscess in the left helium arc welder space extending along the mandibular ramus into the inferior aspect of the temporalis musculature. The abscess measures approximately 2.8 x 1.4 cm transaxially, and appears to spontaneously draining into the oral cavity, and appears to originate from the left bending the third molar which is impacted into the second molar. * No CT evidence of osteomyelitis.. Electronically Signed: David Mercado MD at 18:05 EST , Physical Exam Narrative General: Alert, very thin HEENT: Atraumatic, patient with left-sided jaw swelling, right-sided gum bleeding Eyes: Anicteric Neck: Supple Respiratory: normal respiratory effort Cardiovascular: Slightly tachycardic GI: Soft, nontender, nondistended Extremities: No edema Musculoskeletal: Moving all extremities Neuro: No overt focal neurological deficits Skin: No rashes appreciated Psych: Cooperative Assessment & Plan Assessment/Plan (1) Sepsis: (2) Bacteremia due to Staphylococcus: (3) EARL (acute kidney injury): (4) Severe malnutrition: (5) Neutropenia: (6) Facial swelling: (7) Open wound of oral cavity: PLAN: Plan Sepsis secondary to gram-positive cocci in clusters -High suspicion of Staph aureus -Sepsis order set utilized with IV fluid bolus given -Check MRSA PCR -Continue vancomycin -Add cefepime -Will continue home empiric antibiotics due to neutropenia -Repeat blood cultures drawn in the emergency department however suspect this will be low yield at this time as she had not received antibiotics so I expect them to be positive as well -Check echocardiogram -Tunneled central line may need to be removed--> will wait for ID input and consult general surgery if they feel it needs removed -Coags were obtained -Consult infectious disease -05/16: It was recommended patient be transferred to another facility for dental evaluation however patient and wanted to discuss with oncology prior to making this decision, after discussion with oncology and prognosis patient has been opted for hospice, plan will be to DC with home hospice tomorrow, hospice consulted EARL -Baseline serum creatinine is 0.5-0.7 -On admission serum creatinine was 0.14 with a BUN of 19 -IV fluids given per sepsis bolus and then will run 150 an hour -Repeat lab in a.m. -Avoid nephrotoxins as able -05/16: Hospice consulted Left-sided facial swelling with oral wounds from chemo -Area is indurated externally and appears to be swollen -As needed oral viscous lidocaine -Could potentially be source for bacteremia -CT of the face and sinuses is pending -Broad-spectrum antibiotics as ordered and if patient has abscess may need ENT versus dental surgery assistance -05/16: Supportive care, hospice consulted Neutropenic fever -See above Severe malnutrition -General soft diet -Ensure supplements Tachycardia -Likely related to the above -IV fluids -Monitor -Telemetry -05/16: Patient to be hospice 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 Caba -Last chemo was 6 weeks ago and this was on hold due to mouth sores -Per discussion with Dr. Caba it sounds as if she may be contemplating hospice and he will have further discussion with her at her next visit with her -05/16: Oncology evaluated, patient to go hospice DVT prophylaxis -SCDs -No chemoprophylaxis due to severe anemia and thrombocytopenia CODE STATUS DNR CCA with no intubation as verified on admission Time spent in the patient's overall evaluation,decision-making process, review of diagnostic data, adjustment of management, discussion with other providers, nursing nursing and ancillary staff involved in patient's care documentation, 51 minutes Capacity Legal Director Of Undergraduate Admissions Reflex Medical hold order details:: IF a medical hold is selected below, a suggested order for a MEDICAL HOLD will reflex upon signing the document. Next of kin: [place] law dictates a PRIORITY LIST for identifying legal decision-maker/legal next of kin in the following order (LNOK): 1st: The patient?s legal guardian, if any 2nd: The patient's spouse (if status is questionable, consult Risk Management) 3rd: The patient?s adult child(mat) (majority, if multiple children) 4th: The patient?s parents 5th: The patient?s adult siblings (majority, if multiple children siblings) Charges/Coding Visit Charges Inpatient E&M: 92288 Subs Hosp L3
[2023-05-16] MEDS: 0.9% Normal Saline (1000mL) 1,000 ML 50 ML IV (08:17)
[2023-05-16] MEDS: Potassium Chloride 10mEq/100mL 10 MEQ/100 ML IV.SOLN. 100 MEQ IV BOLUS ×4 (08:19→13:41)
--- NOTE | 2023-05-16 08:28 | PCM.RX.CS ---
Consult Antibiotic Management Pharmacy has been consulted to manage selected antibiotic: Vancomycin Type of Intervention Type of Consult: Follow-up Suspected Infection Suspected Infection: Bacteremia Labs Labs: Sodium 139 mmol/L (136-145) 05/16/23 04:27 Potassium 2.8 mmol/L (3.5-5.1) L 05/16/23 04:27 Chloride 105 mmol/L (98-107) 05/16/23 04:27 Carbon Dioxide 28.0 mmol/L (21.0-32.0) 05/16/23 04:27 Anion Gap 6 (5-15) 05/16/23 04:27 BUN 14 mg/dL (7-18) 05/16/23 04:27 Creatinine 0.36 mg/dL (0.55-1.02) L 05/16/23 04:27 Est GFR (MDRD) Af Amer 260 mL/min (>60) 05/16/23 04:27 Est GFR (MDRD) Non-Af 215 mL/min (>60) 05/16/23 04:27 BUN/Creatinine Ratio 39.3 RATIO (10-20) H 05/16/23 04:27 Glucose 109 mg/dL (74-106) H 05/16/23 04:27 Microbiology Microbiology: Microbiology 05/15/23 14:02 Mucosa - Nose SARS-CoV-2, Influenza & RSV (PCR) - Final Goal Trough Goal Trough: 15-20 mcg/mL Pharmacy Plan for Drug Dosing Pharmacy Plan for Drug Dosing: DAILY ASSESSMENT Current Vancomycin Dose: 500mg IV Q12hr Number of Doses Received: 2 (ED dose of 750mg and 1 scheduled dose of 500mg) Current Renal Function: SCr 0.36/ CrCl >100mL/min Renal Function Trend: significant improvement from yesterday Lab/Micro: BCx growing GPC clusters Any Change in Vanc Plan: Patient with improvement in CrCl from yesterday to today. Patient now qualifies for vancomycin 500mg IV Q8h frequency. Will change dose to 500mg IV Q8h at this time. Will keep original trough time in place and get a trough prior to the 5th total dose to see if this dose and frequency is appropriate by establishing a dosing pattern with this regimen. Pending Level: 05/17/23 @0130 (prior to 5th total dose of vancomycin) Pharmacy Service will continue to monitor and adjust dosing as required.
[2023-05-16] MEDS: Potassium Chloride Oral Tablet 20 MEQ 40 MEQ PO (09:26)
[2023-05-16] MEDS: Ensure Plus High Protein 120 ML LIQUID PO ×2 (09:57→14:00)
[2023-05-16] MEDS: Cefepime HCl 2 GM in 0.9% Normal Saline (100mL MB+) 100 ML IV (09:57)
[2023-05-16] MEDS: POSACONAZOLE 100 MG TABLET.DR 300 MG PO (10:00)
[2023-05-16] MEDS: Acyclovir 200 MG Capsule 400 MG PO ×2 (10:03→20:59)
--- NOTE | 2023-05-16 10:17 | PCM.CONS.GEN ---
Assessment & Plan Assessment/Plan (1) Gram-positive cocci bacteremia: PLAN: Neutropenic fever with GPC bacteremia from dental abscess. Bcx pcr neg for saph, enterococcus, strep, listeria. Suspect oral jo ann as cause related to dental abscess and impacted teeth. Has tunneled line in R chest with no sign inflammation. Recommend transfer for OMFS evaluation as dentistry/OMFS unavailable here. On prophylaxis with posaconazole, acyclovir, and levaquin at home. On vanc/cefepime. Will hold levaquin. Will add flagyl. Reports hives with zosyn in the past. Will follow, thank you, d/w primary team (2) AML (acute myeloblastic leukemia): (3) Pancytopenia: HPI Consult Data Date of Consult: 05/16/23 HPI Narrative Reason for Consultation: bacteremia HPI Narrative: MALIA RIVERA, is a 38 F with AML, chronic pancytopenia. reports long history of fevers. Over past 2 weeks increased intermittent gum bleeding. No jaw pain. Due to need for transfusions, went to ED 05/13, admitted and discharged on 05/14. Had fever to 104 during the stay, sent home on normal prophylaxis. Bcx now (+), called back to ED. CT sinus shows dental abscess and impacted teeth. Feeling ok this AM. On vanc/cefepime. Full ROS performed and neg except as noted above. No issues with R chest tunneled line. No cough. No n/v/d. PFSH Medical History AML (acute myeloid leukemia) Home Medications levofloxacin 500 mg tablet 500 mg PO DAILY ANTIBIOTIC 12/04/22 [History Last Taken 05/14/23] acyclovir 400 mg tablet 400 mg PO BID ANTIVIRAL 03/08/23 [History Last Taken 05/14/23] posaconazole 100 mg tablet,delayed release 300 mg PO Q24H ANTIFUNGAL 05/13/23 [History Last Taken Unknown] acetaminophen 325 mg tablet 650 mg PO Q6H PRN PAIN 05/15/23 [History Last Taken Unknown] melatonin 3 mg tablet 3 mg PO QHS PRN SLEEP 05/15/23 [History Last Taken Unknown] potassium chloride 20 mEq tablet,extended release(part/cryst) 20 meq PO BID SUPPLEMENT 05/15/23 [History Last Taken 05/14/23] Allergy/AdvReac Type Severity Reaction Status Date / Time piperacillin [From Zosyn] AdvReac Mild Rash Verified 05/15/23 12:00 tazobactam [From Zosyn] AdvReac Mild Rash Verified 05/15/23 12:00 Social History (Updated 05/13/23 @ 18:[address] Ruba Sellers, DO) household members: family housing: house Smoking Status: Never smoker alcohol intake: never substance use type: does not use Physical Exam Const alert, oriented x3 and no apparent distress Constitutional Narrative: ill appearing HEENT normocephalic and head/scalp atraumatic HEENT Narrative: mouth bleeding Eyes PERRL and EOMs intact bilaterally Neck supple and No nodes Resp normal air movement and clear to auscultation bilaterally Cardio no murmurs Rate: tachycardic GI soft to palpation, non-tender and non-distended Extremity General Extremity: Negative for edema Skin Skin Narrative: Cachectic. Large raised dry red nodule on calf Neuro CN's II-XII intact bilaterally Lab / Micro Data Attestation: I reviewed the patient's lab results. 05/16/23 04:27 05/16/23 04:27 Labs: Laboratory Results - last 24 hr 05/15/23 12:18: WBC 2.2 L, RBC 3.28 L, Hgb 9.3 L, Hct 28.1 L, MCV 85.7, MCH 28.4, MCHC 33.1, RDW Std Deviation 44.2 H, RDW Coeff of Susan 13.9, Plt Count 21 L*, MPV 9.8, Immature Gran % (Auto) 2.300 H, Neut % (Auto) 0.9 L, Lymph % (Auto) 22.5, [place] % (Auto) 72.9 H, Eos % (Auto) 0.0, Baso % (Auto) 1.4 H, Absolute Neuts (auto) 0.0 L, Absolute Lymphs (auto) 0.49 L, Nucleated RBC % 0, Differential Comment , Diff Path Review August, PT 16.1 H, INR 1.3, APTT 28.6, Sodium 135 L, Potassium 3.8, Chloride 102, Carbon Dioxide 21.0, Anion Gap 12, BUN 19 H, Creatinine 1.03 H, Estim Creat Clear Calc 50.95, Est GFR (MDRD) Af Amer 76, Est GFR (MDRD) Non-Af 63, BUN/Creatinine Ratio 18.4, Glucose 213 H, Hemoglobin A1c 5.2, Calcium 8.7, Total Bilirubin 0.40, AST 20, ALT 34, Alkaline Phosphatase 114, Total Creatine Kinase 30, Troponin I High Sens 47, Total Protein 5.7 L, Albumin 2.1 L, Globulin 3.6, Albumin/Globulin Ratio 0.6 L 05/15/23 14:00: Lactic Acid 2.8 H* 05/15/23 14:02: Urine Color Yellow, Urine Clarity Clear, Urine pH 7.0, Ur Specific [place] 1.010, Urine Protein 15 H, Urine Glucose (UA) Normal, Urine Ketones Negative, Urine Occult Blood Negative, Urine Nitrite Negative, Urine Bilirubin Negative, Urine Urobilinogen 1 H, Ur Leukocyte Esterase Negative, Urine RBC 0 SEEN, Urine WBC 0 SEEN, Ur Squamous Epith Cells 0 SEEN, Urine Bacteria 0 SEEN, Urine Mucus 0 SEEN 05/15/23 18:36: MRSA (PCR) Negative 05/15/23 18:55: Lactic Acid 1.9 05/16/23 04:27: WBC 0.5 L*, RBC 2.35 L, Hgb 6.6 L, Hct 19.9 L, MCV 84.7, MCH 28.1, MCHC 33.2, RDW Std Deviation 42.8, RDW Coeff of Susan 13.6, Plt Count 9 L*, MPV 8.6, Immature Gran % (Auto) 0.000, Neut % (Auto) 6.0 L, Lymph % (Auto) 60.0 H, [place] % (Auto) 34.0 H, Eos % (Auto) 0.0, Baso % (Auto) 0.0, Absolute Neuts (auto) 0.0 L, Absolute Lymphs (auto) 0.30 L, Nucleated RBC % 0, Differential Comment S, Diff Path Review August, Sodium 139, Potassium 2.8 L, Chloride 105, Carbon Dioxide 28.0, Anion Gap 6, BUN 14, Creatinine 0.36 L, Estim Creat Clear Calc 145.77, Est GFR (MDRD) Af Amer 260, Est GFR (MDRD) Non-Af 215, BUN/Creatinine Ratio 39.3 H, Glucose 109 H, Calcium 7.9 L, Phosphorus 2.9, Magnesium 1.9, Total Bilirubin 0.70, AST 28, ALT 46, Alkaline Phosphatase 125 H, Total Protein 4.8 L, Albumin 1.8 L, Globulin 3.0, Albumin/Globulin Ratio 0.6 L 05/16/23 09:15: Blood Type O NEGATIVE, Antibody Screen NEGATIVE, Crossmatch See Detail Micro: Microbiology 05/15/23 14:02 Mucosa - Nose SARS-CoV-2, Influenza & RSV (PCR) - Final Imagaing Radiology Impression Chest X-Ray 05/15/23 14:40 IMPRESSION: No acute cardiopulmonary process identified. Electronically Signed: Esther Prather MD at 14:57 EST , Facial/Sinus 05/15/23 16:14 IMPRESSION: * There is an abscess in the left automat watcher space extending along the mandibular ramus into the inferior aspect of the temporalis musculature. The abscess measures approximately 2.8 x 1.4 cm transaxially, and appears to spontaneously draining into the oral cavity, and appears to originate from the left bending the third molar which is impacted into the second molar. * No CT evidence of osteomyelitis.. Electronically Signed: David Mercado MD at 18:05 EST , Capacity Legal Manager [employer] Reflex Medical hold order details:: IF a medical hold is selected below, a suggested order for a MEDICAL HOLD will reflex upon signing the document. Next of kin: [place] law dictates a PRIORITY LIST for identifying legal decision-maker/legal next of kin in the following order (LNOK): 1st: The patient?s legal guardian, if any 2nd: The patient's spouse (if status is questionable, consult Risk Management) 3rd: The patient?s adult child(mat) (majority, if multiple children) 4th: The patient?s parents 5th: The patient?s adult siblings (majority, if multiple children siblings)
[2023-05-16 13:08] LABS: Pathologist Review Reviewed
[2023-05-16] MEDS: Hydrocortisone Sod Succinate 100 MG/2 ML Vial IV (13:41)
[2023-05-16] MEDS: DiphenhydrAMINE 50 MG/ML Syringe IV (13:41)
[2023-05-16 15:52] LABS: Anion Gap 4 (5-15); BUN 14 mg/dL (7-18); BUN/Creat Ratio 26.3 RATIO (10-20); Calcium,Total 8.6 mg/dL (8.5-10.1); Chloride 106 mmol/L (98-107); Creatinine, Serum 0.53 mg/dL (0.55-1.02); EST Glomerular Filtration Rate 135 mL/min (>60); Est Glom Filt Rate - Afr Amer 163 mL/min (>60); Estimated Creatinine Clearance 99.02 ml/min; Glucose 138 mg/dL (74-106); Potassium 4.8 mmol/L (3.5-5.1); Sodium Level 136 mmol/L (136-145)
--- NOTE | 2023-05-16 18:51 | ONC.CONSULT ---
Assessment & Plan Assessment/Plan (1) AML (acute myeloid leukemia): Status: Acute Code(s): C92.00 - Acute myeloblastic leukemia, not having achieved remission Qualifiers: Leukemia Active/Remission status: without remission Qualified Code(s): C92.00 - Acute myeloblastic leukemia, not having achieved remission Plan: Impression: -Refractory AML. -Progression on Vidaza. -Recent blast count 70%. -NF with dental abcess. -Severe thrombocytopenia. -Severe neutropenia. Plan: -Discussion with patient and --She does not want to be transferred and I support that decision. Disease is at end-stage and prognosis is days to a week. Recommended hospice care to which she and her agreed. -Hospice consultation for home hospice. -Discharge tomorrow. -Discussed with Dr. Acharya. 30 min at bedside. HPI Consult Data Date of Service:: 05/17/23 PCP / Referring Provider: Dr. Mook Ga MD Attending: Dr. Rachel Acharya MD Chief Complaint Chief Complaint: AML History of Present Illness History of Present Illness: HPI:?The patient is a 38-year-old female who had an unremarkable past medical history. Admitted to [facility] on 02/28/2022 to the MICU after presenting to an outside hospital with an approximate 2-month history of worsening lethargy and shortness of breath. ?She was found to be pancytopenic. ?Was in septic shock and required intubation and 3 pressors.? ? Initial bone marrow biopsy demonstrated 60% blasts. 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 ? Previous therapy: 1) Induction 7+3 started while in the ICU. Bone marrow biopsy on day 14 showed persistent disease and she was then started on Vidaza/venetoclax. ? First cycle 03/17 through 03/23/2022. ? Her induction course and subsequent therapy were complicated by necrosis of the fingertips. ?She also had infectious complications and suspected fungal pneumonia. ? Current therapy: 1) Vidaza and venetoclax (100 mg). Cycle #1 03/17--03/23/2022. (Venetoclax 21 days) ? Day 21 bone marrow biopsy following cycle 1 of Vidaza venetoclax 04/10/2022 demonstrated 4% blasts. ?Complex cytogenetic results supported low-level persistent disease. ? Cycle #2 04/27/2023--05/07/2022. Cycle #3 05/28/2022-06/05/2022. Cycle #4 07/17/2022-07/25/2022. ? She then opted for alternative therapy. ? Returned to care here and was started back on Vidaza and venetoclax. ? Cycle #6 11/20 through 11/29/2022. ? Day 27 bone marrow biopsy demonstrated persistent leukemia. ? Cycle #7 01/01 through 01/10/2023. ? Admitted to [facility] 01/21 through 01/29/2023 for neutropenic fever. ? On presentation she had a 2 to 3-day history of fever/chills associated with cough, nasal congestion. ?Was immediately treated with meropenem and vancomycin. ?CT chest was performed and it showed interval development of a 4.9 cm masslike consolidative area in the left upper lobe with surrounding groundglass opacities. ?Smaller nodular consolidative opacities were noted in the right lung apex suggestive of fungal infection but hemorrhage and less likely malignancy could not be ruled out. ?Skin biopsies were performed of right lower leg rash--deep neutrophilic dermatosis. She underwent bronchoscopy on 01/24. ?Rare yeast was noted in sputum cultures. ?Her tachycardia and fever had resolved on broad-spectrum antibiotics. ?Biopsy of the lung mass was negative for granuloma and malignancy. ?It was thought this was remnant of bacterial pneumonia that was treated. ?After patient became afebrile she was rotated back to prophylactic oral Levaquin. ?Serum pause econazole level was low and dose was increased. ?She also underwent repeat bone marrow biopsy 01/24 that noted hypocellular marrow with persistent myeloid blasts of 4%. ?She received a unit of red blood cells and platelets prior to discharge. ? Hospitalized for neutropenic fever 03/13 through 03/20. ? Per the discharge summary: She presented to ED on 03/13 for Fever/Chills/Sore Throat/Lip lesion/Abdominal rash. Patient reported that she had recently received mistletoe injections through the [facility]. A CT PE Chest?was performed (03/14) and noted a new 2.0 cm branching linear opacity in the right lower lobe, either infectious/post inflammatory. Likely representing multifocal pneumonia. A CT abd pelvis?was performed and?noted a new anterior abdominal and pelvic wall skin thickening/induration with a focal high attenuation region within the subcutaneous fat just to the RIGHT of the umbilicus representing either hematoma and/or fat necrosis. Patient received hydration and was started on IV Vancomycin and Meropenem. Infectious Disease was consulted and recommended the addition of Liposomal amphotericin B for Mucorales coverage?and Voriconazole for Fusarium coverage. ENT was consulted and performed a bedside scope which noted no abnormalities noted in the bilateral nasal cavities suggestive of IFS, No abnormalities noted within the larynx. Patient continued to improve. However during admission patient began having nightmares (likely due to Voriconazole) and refused any further dosing despite ID/Primary team recommendations. Cultures are now negative, patient is now ready for discharge. ?Patient will follow-up with primary oncologist Dr. Caba on 03/22. ?Patient discussed antibiotic plan with Infectious Disease and declines IV antibiotics at this time. Therefore, COPAT not initiated. Patient will follow-up with ID outpatient. ?At time of discharge patient was afebrile, hemodynamically stable. ?Skin biopsy showed concern for possible sweets syndrome. She was started on systemic steroids and topical steroid cream as directed by derm and will discuss further course with Dr Caba at outpatient appointment. Patient understands follow-up instructions and importance, understands where and when to follow-up. ?Patient was educated on red flag signs and symptoms, ER precautions were given, all questions and concerns addressed prior to discharge. ? Recently admitted for transfusion. After discharge BC+ Readmitted with NF and dental abscess. Advanced Directives Power of Underground Production Foreperson: No Living Will: No [facility] Medical History (Updated 05/16/23 @ 18:[address] Gilles Caba, DO) AML (acute myeloid leukemia) Home Medications levofloxacin 500 mg tablet 500 mg PO DAILY ANTIBIOTIC 12/04/22 [History Last Taken 05/14/23] acyclovir 400 mg tablet 400 mg PO BID ANTIVIRAL 03/08/23 [History Last Taken 05/14/23] posaconazole 100 mg tablet,delayed release 300 mg PO Q24H ANTIFUNGAL 05/13/23 [History Last Taken Unknown] acetaminophen 325 mg tablet 650 mg PO Q6H PRN PAIN 05/15/23 [History Last Taken Unknown] melatonin 3 mg tablet 3 mg PO QHS PRN SLEEP 05/15/23 [History Last Taken Unknown] potassium chloride 20 mEq tablet,extended release(part/cryst) 20 meq PO BID SUPPLEMENT 05/15/23 [History Last Taken 05/14/23] Allergy/AdvReac Type Severity Reaction Status Date / Time piperacillin [From Zosyn] AdvReac Mild Rash Verified 05/15/23 12:00 tazobactam [From Zosyn] AdvReac Mild Rash Verified 05/15/23 12:00 Social History (Updated 05/13/23 @ 18:[address] Ruba Sellers, DO) household members: family housing: house Smoking Status: Never smoker alcohol intake: never substance use type: does not use Physical Exam Const alert HEENT HEENT Narrative: Swollen left lower rear mandible. Infiltrated area left retromolar trigone. Resp normal respiratory effort Cardio regular rhythm Skin Skin Narrative: Sallow. Vital Signs Temperature 99.3 F H 05/16/23 16:41 Temperature Source Oral 05/16/23 16:41 Pulse Rate 110 H 05/16/23 18:00 Pulse Strength Weak (1+) 05/16/23 10:00 Respiratory Rate 26 H 05/16/23 18:00 Respiratory Effort Normal, Non-Labored 05/16/23 15:57 Respiratory Depth Normal 05/16/23 08:00 Respiratory Pattern Normal 05/16/23 08:00 Blood Pressure 114/84 H 05/16/23 18:00 Blood Pressure Mean 94 05/16/23 18:00 Blood Pressure Source Monitor 05/16/23 18:00 Blood Pressure Position Semi-Fowlers 05/16/23 18:00 Blood Pressure Location Left Arm 05/16/23 18:00 Pulse Ox 99 05/16/23 18:00 Oxygen Delivery Method Room Air 05/16/23 18:00 Laboratory Results - last 24 hr 05/15/23 12:18: Diff Path Review Reviewed 05/15/23 18:36: MRSA (PCR) Negative 05/15/23 18:55: Lactic Acid 1.9 05/16/23 04:27: WBC 0.5 L*, RBC 2.35 L, Hgb 6.6 L, Hct 19.9 L, MCV 84.7, MCH 28.1, MCHC 33.2, RDW Std Deviation 42.8, RDW Coeff of Susan 13.6, Plt Count 9 L*, MPV 8.6, Immature Gran % (Auto) 0.000, Neut % (Auto) 6.0 L, Lymph % (Auto) 60.0 H, [place] % (Auto) 34.0 H, Eos % (Auto) 0.0, Baso % (Auto) 0.0, Absolute Neuts (auto) 0.0 L, Absolute Lymphs (auto) 0.30 L, Nucleated RBC % 0, Differential Comment S, Diff Path Review August, Sodium 139, Potassium 2.8 L, Chloride 105, Carbon Dioxide 28.0, Anion Gap 6, BUN 14, Creatinine 0.36 L, Estim Creat Clear Calc 145.77, Est GFR (MDRD) Af Amer 260, Est GFR (MDRD) Non-Af 215, BUN/Creatinine Ratio 39.3 H, Glucose 109 H, Calcium 7.9 L, Phosphorus 2.9, Magnesium 1.9, Total Bilirubin 0.70, AST 28, ALT 46, Alkaline Phosphatase 125 H, Total Protein 4.8 L, Albumin 1.8 L, Globulin 3.0, Albumin/Globulin Ratio 0.6 L 05/16/23 09:15: Blood Type O NEGATIVE, Antibody Screen NEGATIVE, Crossmatch See Detail 05/16/23 15:25: Sodium 136, Potassium 4.8, Chloride 106, Carbon Dioxide 26.0, Anion Gap 4 L, BUN 14, Creatinine 0.53 L, Estim Creat Clear Calc 99.02, Est GFR (MDRD) Af Amer 163, Est GFR (MDRD) Non-Af 135, BUN/Creatinine Ratio 26.3 H, Glucose 138 H, Calcium 8.6 Microbiology 05/15/23 14:02 Mucosa - Nose SARS-CoV-2, Influenza & RSV (PCR) - Final Diagnostic Data Chest X-Ray 05/15/23 14:40 IMPRESSION: No acute cardiopulmonary process identified. Electronically Signed: Esther Prather MD at 14:57 EST , Echocardiogram 05/15/23 15:33 Interpretation Summary The estimated ejection fraction is 60 %. Normal diastololic function. No obvious vegetation identified. Ordering Physician: Ruba Sellers Referring Physician: Mook Ga Performed By: Brit Bhatti, KOMAL, RVT Facial/Sinus 05/15/23 16:14 IMPRESSION: * There is an abscess in the left portable grinding machine operator space extending along the mandibular ramus into the inferior aspect of the temporalis musculature. The abscess measures approximately 2.8 x 1.4 cm transaxially, and appears to spontaneously draining into the oral cavity, and appears to originate from the left bending the third molar which is impacted into the second molar. * No CT evidence of osteomyelitis.. Electronically Signed: Davdi Mercado MD at 18:05 EST ,
[2023-05-16] MEDS: MELATONIN 3 MG TABLET PO (23:15)
[2023-05-17 02:00] VITALS: BP 108/79; PULSE 83; RESP 16; TEMP 36.5; O2SAT 95
[2023-05-17 05:22] VITALS: BMI 17.4
[2023-05-17 08:00] VITALS: BP 122/75; PULSE 117; RESP 18; TEMP 37.1; O2SAT 97
[2023-05-17] MEDS: Ensure Plus High Protein 120 ML LIQUID PO (08:13)
[2023-05-17] MEDS: POSACONAZOLE 100 MG TABLET.DR 300 MG PO (08:13)
[2023-05-17] MEDS: Acyclovir 200 MG Capsule 400 MG PO (08:13)
[2023-05-17] MEDS: Cefepime HCl 2 GM in 0.9% Normal Saline (100mL MB+) 100 ML IV (09:56)
--- NOTE | 2023-05-17 10:07 | CASEMGMT ---
Patient signed with Hospice. Patient will go home. Patient has transportation, but the ambulance driver paramedic cannot get to [facility] for an hour and they were wondering if they could get something sooner. SW checked with [facility] van and [facility] transport. [facility] van has no availability. Hospice said they would not be able to be at hospital for at least 2 hours. SW let patient and her know this information. They will call their ambulance driver paramedic. SW notified RN and asked RN to notify SW when patient is leaving and SW will notify Hospice. Plan: d/c home with [facility]. Rohini PATRICIA
--- NOTE | 2023-05-17 10:50 | PCM.DC ---
Discharge Instructions Diet Discharge Diet: No restrictions Activity Discharge Activity: Return to Normal Activity Follow Up Care Test Results: Test results from this visit will be discussed in further detail at your follow-up appointment, if applicable. Discharge Plan Admission Admit Date/Time: 05/15/23 15:26 Primary Reason for Your Visit: Fever Attending Provider: Rachel Acharya Primary Care Provider: Mook Ga Consulting Providers: Tho Al; Ruba Sellers; Juanito Woodson; Lalit Arreguin; Joanne Schumacher; Luciano Carr; Erika Espinosa; Ruel Carbajal; Gilles Caba; David Farah; Raven Askew; Kimmy Regan; Soledad Gonzalez POCKETS AND PIECES NECKTIE OPERATOR Instructions Patient Instructions: ED Fall Prevention Additional Instructions / Restrictions: Home with hospice Discharge Orders/Prescriptions Prescriptions: Continued levofloxacin 500 mg tablet 500 mg PO DAILY acyclovir 400 mg tablet 400 mg PO BID posaconazole 100 mg tablet,delayed release (DR/EC) 300 mg PO Q24H melatonin 3 mg tablet 3 mg PO QHS PRN (Reason: SLEEP ) acetaminophen 325 mg tablet 650 mg PO Q6H PRN (Reason: PAIN ) Discontinued potassium chloride 20 mEq tablet,ER particles/crystals 20 meq PO BID Referrals / Follow Up: Mook Ga MD [Primary Care Provider] - Disposition Disposition (needs filled in before D/C Order can be placed): Hospice in Home
--- NOTE | 2023-05-17 10:54 | PCM.DC.SUM ---
Providers Date of Admission: 05/15/23 Date of Discharge: 05/17/23 Primary Care Physician: Dr. Mook Ga MD Consultations 05/15/23 17:34 Consult: Infectious Disease Routine Consulting Provider: Tho Al Reason for Consult: Bacteremia GPC in Clusters EMERGENT Consult: No Notified: Yes Date Notified: 05/15/23 Time Notified: 15:30 Method of Notification: Text 05/16/23 10:35 Consult: Oncology/Hematology Routine Consulting Provider: [facility] [place] Reason for Consult: aml, goals of care EMERGENT Consult: No Notified: Yes Date Notified: 05/16/23 Time Notified: 10:36 Method of Notification: Verbal 05/16/23 17:51 Consult: Hospice / Palliative Care Routine Consulting Provider: [facility] Reason for Consult: leukemia EMERGENT Consult: No Notified: Yes Date Notified: 05/16/23 Time Notified: 18:02 Method of Notification: Verbal Comments:: plan for dc 05/17 Reason For Visit: SEPSIS WITH GPC IN CLUSTERS Diagnosis Discharge Diagnosis (1) AML (acute myeloid leukemia): Status: Acute Code(s): C92.00 - Acute myeloblastic leukemia, not having achieved remission Qualifiers: Leukemia Active/Remission status: without remission Qualified Code(s): C92.00 - Acute myeloblastic leukemia, not having achieved remission Plan Sepsis secondary to gram-positive cocci in clusters- 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 Left-sided facial swelling with oral wounds from chemo Neutropenic fever Severe malnutrition Tachycardia Pancytopenia secondary to AML AML Medications at Discharge Home Medications levofloxacin 500 mg tablet 500 mg PO DAILY ANTIBIOTIC 12/04/22 acyclovir 400 mg tablet 400 mg PO BID ANTIVIRAL 03/08/23 posaconazole 100 mg tablet,delayed release 300 mg PO Q24H ANTIFUNGAL 05/13/23 acetaminophen 325 mg tablet 650 mg PO Q6H PRN PAIN 05/15/23 melatonin 3 mg tablet 3 mg PO QHS PRN SLEEP 05/15/23 Hospital Course Summary of Care Provided Minutes Spent on Discharge: 32 Hospital Course: Per HPI: MALIA RIVERA, is a 38 F who presented to the emergency department at [facility] on 05/15/2023 due to abnormal labs. Patient was recently admitted here and discharged yesterday. She was admitted for blood transfusions which she requires frequently for her AML. She has a history of chronic pancytopenia and is neutropenic at baseline. She has AML and is currently on a hiatus from her chemotherapy as she had significant side effects related to this. She has been getting transfusions twice weekly. Between Saturday and Saturday she received 4 units of blood to give her 1 cells and a 2 pack of platelets. On the a.m. of 05/14/2023 she had a fever that was isolated incidence with a Tmax of 104 and never had recurrent fever. Blood cultures were obtained at that time and she was transfused 1 more unit of blood. She had no recurrent fevers so she was able to be discharged home after discussion with her oncologist. Unfortunately, her blood cultures resulted 2 out of 2 positive for gram-positive cocci in clusters so she was referred to come back to the emergency department for ongoing treatment. Patient states she was feeling well and had no further fevers at home and she only came to the emergency department because Dr. Caba's office called and told her to come in. She is complaining of some left-sided facial pain and seems that the left side of her face is more swollen than it had been. She has ulcers and poor dentition. Ulcers are related from previous chemotherapy. Vital signs on presentation showed a temperature of 99.1, heart rate 146, blood pressure 130/82, respiratory to 18 oxygen saturations 100% on room air. Her white count is 2.2 but her absolute neutrophil count is 0, her hemoglobin is 9.3, platelet count is 21,000. Coags only show slight elevation of her PT at 16.1. Her sodium slightly low at 135, BUN is 19 and serum creatinine is 1.03 indicating significant dehydration as her baseline serum creatinine is 0.5-0.7. Serum glucose was 213 and her lactate was 2.8. Liver enzymes are normal. UA is unremarkable. Chest x-ray shows no acute cardiopulmonary process. Blood cultures from yesterday are 2 of 2 positive for gram-positive cocci in clusters. INTERVAL HISTORY: Patient was admitted and placed on broad-spectrum antibiotics and ID was consulted, ID evaluated and recommended transfer to a location that would be able to evaluate her dental problems given impacted teeth and infection, spoke with patient and her and they wanted to speak with oncologist and were not interested in transfer at this time and were leaning towards hospice. They spoke with her oncologist and ultimately decided that they would like to go home with hospice. Patient discharged 05/17/2023 with home hospice. Physical Exam Narrative Deferred: Patient leaving with hospice Medical Records Data Medical Nutrition Assessment Dietitian: Malnutrition Criteria Met Start: 05/16/23 10:39 Freq: Status: Active Protocol: Document 05/16/23 10:57 AG (Rec: 05/16/23 10:57 AG Desktop) Nutrition Malnutrition Evidence of Malnutrition Exists Yes Malnutrition (severe): Chronic Evidenced By Suboptimal Energy Intake ( Severe),Weight Loss (Severe) Clinical Problem Chronic Disease or Condition Related Malnutrition Etiology severe chronic malnutrition related to inadequate energy intake Signs/Symptoms as evidenced by estimated PO intake meeting <50% of estimated energy needs x 1 year, unintentional wt loss of 42% x 1 year, BMI 17.3 Status Active Problem Recommendation Dietitian Recommendations/Changes regular diet, texture/ consistency modifications per DIRECTOR OF ANNUAL GIVING if indicated; continue ensure plus high protein as ordered for additional nutrition if consumed Weight / BMI Weight Weight: 44.5 kg Body Mass Index (BMI) 17.4 ABG / Lab / Microbiology Data 05/16/23 04:27 05/16/23 15:25 Laboratory: Laboratory Results - last 24 hr 05/15/23 12:18: Diff Path Review Reviewed 05/16/23 09:15: Blood Type O NEGATIVE, Antibody Screen NEGATIVE, Crossmatch See Detail 05/16/23 15:25: Sodium 136, Potassium 4.8, Chloride 106, Carbon Dioxide 26.0, Anion Gap 4 L, BUN 14, Creatinine 0.53 L, Estim Creat Clear Calc 99.02, Est GFR (MDRD) Af Amer 163, Est GFR (MDRD) Non-Af 135, BUN/Creatinine Ratio 26.3 H, Glucose 138 H, Calcium 8.6 Microbiology: Microbiology 05/15/23 14:02 Urine, Clean Catch Urine Culture - Final Culture exhibits no growth. 05/15/23 14:02 Mucosa - Nose SARS-CoV-2, Influenza & RSV (PCR) - Final Radiography Diagnostic Testing: Radiology Impression Echocardiogram 05/15/23 15:33 Interpretation Summary The estimated ejection fraction is 60 %. Normal diastololic function. No obvious vegetation identified. Ordering Physician: Ruba Sellers Referring Physician: Mook Ga Performed By: Brit Bhatti RDCS, RVT D/C Instructions Discharge Diet: No restrictions Meaningful Use Info Meaningful Use Diagnoses (Choose all that apply): None applicable Discharge Plan Admission Admit Date/Time: 05/15/23 15:26 Primary Reason for Your Visit: Fever Attending Provider: Rachel Acharya Primary Care Provider: Mook Ga Consulting Providers: Tho Al; Ruba Sellers; Juanito Woodson; Lalit Arreguin; Joanne Schumacher; Luciano Carr; Erika Espinosa; Ruel Carbajal; Gilles Caba; David Farah; Raven Askew; Kimmy Regan; Soledad Gonzalez VOIP TECHNICIAN Instructions Patient Instructions: ED Fall Prevention Additional Instructions / Restrictions: Home with hospice Discharge Orders/Prescriptions Prescriptions: Continued levofloxacin 500 mg tablet 500 mg PO DAILY acyclovir 400 mg tablet 400 mg PO BID posaconazole 100 mg tablet,delayed release (DR/EC) 300 mg PO Q24H melatonin 3 mg tablet 3 mg PO QHS PRN (Reason: SLEEP ) acetaminophen 325 mg tablet 650 mg PO Q6H PRN (Reason: PAIN ) Discontinued potassium chloride 20 mEq tablet,ER particles/crystals 20 meq PO BID Referrals / Follow Up: Mook Ga MD [Primary Care Provider] - Disposition Disposition (needs filled in before D/C Order can be placed): Hospice in Home Charges/Coding Visit Charges Inpatient E&M: 21205 Disch Hosp
[2023-05-17 14:55] LABS: Pathologist Review Reviewed
== END 2023-05-17 12:02 | disposition hospice, home (50) | DRG 871 ==
LOC: ED 16:19 → ICU 16:27
PROVIDERS: Admitting Provider Internal Medicine; Emergency Provider Emergency Medicine; PCP Family Medicine; Visit Provider Internal Medicine
DX: A41.59 Other Gram-negative sepsis (principal); E43 Unspecified severe protein-calorie malnutrition; R65.21 Severe sepsis with septic shock; C92.00 Acute myeloblastic leukemia, not having achieved remission; D61.818 Other pancytopenia; N17.9 Acute kidney failure, unspecified; R17 Unspecified jaundice; D69.6 Thrombocytopenia, unspecified; K04.7 Periapical abscess without sinus; K01.1 Impacted teeth; E86.0 Dehydration; B96.89 Other specified bacterial agents as the cause of diseases classified elsewhere; Z66 Do not resuscitate; R50.81 Fever presenting with conditions classified elsewhere
CPT/HCPCS: 36591; 70487; 71045; 80048; 80053; 81001; 82550; 83036; 83605; 83735; 84100; 84484; 85025; 85610; 85730; 86850; 86900; 86901; 86920; 86922; 86965; 87040; 87086; 87631; 87641; 93005; 93306; 94668; 97802; 99252; 99284; J7030; J7050; P9016; P9035; Q9967; A4216; G0463